=== PATIENT | female | born 1945 | race African-American/Black ===

== ENCOUNTER → 2016-12-24 | Outpatient (CLI) | payer MEDICARE, OTHER ==
[~2016-12-24] MED LIST: AMIO200T PO; AMLO2.5T PO; APIX2.5T PO; ATOR20TA86 PO; CARV12 PO; CINA30 PO; FOLI0.8T22 PO; LEVO150 PO; MONT10TA21 PO; OMEP20 PO; PERCT10 PO; VALS160T2 PO; VITAD5000 PO; ZOLP10 PO
== END | disposition home or self-care (01) ==
LOC: RADPV 11:04
PROVIDERS: ATTEND Internal Medicine Nephrology
DX: N18.6 End stage renal disease (principal); N28.1 Cyst of kidney, acquired; Z90.5 Acquired absence of kidney
CPT/HCPCS: 76770

== ENCOUNTER → 2017-05-06 | Outpatient (CLI) | payer MEDICARE, OTHER ==
[2017-05-06 15:55] LABS: BASOPHILS # (AUTO) 0.02 K/uL (0.00-0.20); BASOPHILS % (AUTO) 0.7 % (0.0-2.0); EOSINOPHILS # (AUTO) 0.17 K/uL (0.00-0.70); EOSINOPHILS % (AUTO) 5.24 % (1.0-6.0); HEMOGLOBIN 10.6 g/dL (12.0-16.0); LYMPHOCYTES # (AUTO) 0.8 K/uL (1.0-4.8); LYMPHOCYTES % (AUTO) 23.2 % (22.0-44.0); MEAN CORPUSCULAR HEMOGLOBIN 27.8 pg (26.0-34.0); MEAN CORPUSCULAR HGB CONC 30.4 G/dL (31.0-37.0); MEAN CORPUSCULAR VOLUME 91 fL (80-100); MONOCYTES # (AUTO) 0.6 K/uL (0.1-1.0); MONOCYTES % (AUTO) 19.4 % (2.0-9.0); NEUTROPHILS # (AUTO) 1.7 K/uL (1.8-7.7); NEUTROPHILS % (AUTO) 51.6 % (40.0-70.0); PLATELET COUNT (AUTO) 175 K/uL (150-450); RED BLOOD CELL COUNT(AUTO) 3.83 MIL/uL (4.00-5.20); RED CELL DISTRIBUTION WIDTH 17.8 % (11.5-14.5); WHITE BLOOD COUNT (AUTO) 3.3 K/uL (4.5-11.0)
[2017-05-06 16:05] LABS: ALBUMIN 3.8 g/dL (3.4-5.0); BILIRUBIN,TOTAL 0.6 mg/dL (0.1-1.0); CALCIUM, TOTAL 8.4 mg/dL (8.8-10.5); CHOL/HDL RATIO 2.6 (3.9-5.7); CREATININE 6.23 mg/dL (0.60-1.30); MAGNESIUM 1.9 mg/dL (1.80-2.40); POTASSIUM 4.2 mmol/L (3.5-5.1); TOTAL PROTEIN, SERUM 7.8 g/dL (6.4-8.2)
[2017-05-06 16:21] LABS: HEMOGLOBIN A1C 4.8 % (4.5-6.2)
[2017-05-06 16:22] LABS: RBC MORPHOLOGY COMMENT ABNORMAL RBC MORPH
[2017-05-06 17:21] LABS: THYROID STIMULATING HORMONE 5.51 uIU/mL (0.36-3.74)
== END | disposition home or self-care (01) ==
LOC: LABPV 12:52
PROVIDERS: ATTEND Internal Medicine Cardiovascular Disease
DX: I11.0 Hypertensive heart disease with heart failure (principal); I50.9 Heart failure, unspecified; E11.8 Type 2 diabetes mellitus with unspecified complications; E55.9 Vitamin D deficiency, unspecified
CPT/HCPCS: 82306; 83036; 83735; 84439; 84443

== ENCOUNTER → 2017-06-01 | Outpatient (CLI) | payer MEDICARE, OTHER | END | disposition home or self-care (01) | LOC: RADMN 13:34 | PROVIDERS: ATTEND Physical Medicine & Rehabilitation | DX: M41.86 Other forms of scoliosis, lumbar region (principal); M51.26 Other intervertebral disc displacement, lumbar region; K83.8 Other specified diseases of biliary tract | CPT/HCPCS: 72131 ==

== ENCOUNTER → 2017-07-15 | Outpatient (CLI) | payer MEDICARE, OTHER ==
[~2017-07-15] VITALS: Ht 167.6 cm; Wt 73.0 kg
[~2017-07-15] MED LIST changes: +AMIO200T44 PO; +CARV6 PO
[2017-07-15 14:18] VITALS: BP 159/99
== END | disposition home or self-care (01) ==
LOC: SRCNTR 13:52
PROVIDERS: ATTEND Internal Medicine Critical Care Medicine
DX: I13.2 Hypertensive heart and chronic kidney disease with heart failure and with stage 5 chronic kidney disease, or end stage renal disease (principal); N18.6 End stage renal disease; I50.9 Heart failure, unspecified; I48.91 Unspecified atrial fibrillation; E03.9 Hypothyroidism, unspecified; Z90.12 Acquired absence of left breast and nipple
CPT/HCPCS: G0463

== ENCOUNTER → 2017-07-29 | Outpatient (CLI) | payer MEDICARE, OTHER ==
[~2017-07-29] MED LIST changes: -AMIO200T PO; -AMLO2.5T PO; -CARV12 PO; -ZOLP10 PO
== END | disposition home or self-care (01) ==
LOC: RADPV 09:45
PROVIDERS: ATTEND Internal Medicine
DX: N28.1 Cyst of kidney, acquired (principal); Z90.49 Acquired absence of other specified parts of digestive tract; Z90.5 Acquired absence of kidney
CPT/HCPCS: 76700

== ENCOUNTER → 2017-08-12 | Outpatient (CLI) | payer MEDICARE, OTHER | END | disposition home or self-care (01) | LOC: RESP 11:51 | PROVIDERS: ATTEND Internal Medicine Critical Care Medicine | DX: J44.1 Chronic obstructive pulmonary disease with (acute) exacerbation (principal) | CPT/HCPCS: 94010; 94726; 94727; 94729 ==

== ENCOUNTER 2017-08-30 14:05 | Inpatient (IN) | payer MEDICARE, OTHER ==
[~2017-08-30] VITALS: Ht 167.6 cm; Wt 75.7 kg
[2017-08-30] MEDS ORDERED: PHOSLOC PO (14:27)
[2017-08-30] MEDS ORDERED: RYTH150 PO (14:27)
[2017-08-30 14:44] LABS: BASOPHILS % (AUTO) 0.2 % (0.0-2.0); EOSINOPHILS % (AUTO) 1.2 % (1.0-6.0); HEMATOCRIT 37.4 % (36-46); HEMOGLOBIN 11.8 g/dL (12.0-16.0); LYMPHOCYTES # (AUTO) 0.8 K/uL (1.0-4.8); LYMPHOCYTES % (AUTO) 14.2 % (22.0-44.0); MEAN CORPUSCULAR HEMOGLOBIN 27.8 pg (26.0-34.0); MEAN CORPUSCULAR HGB CONC 31.6 G/dL (31.0-37.0); MEAN CORPUSCULAR VOLUME 88 fL (80-100); MONOCYTES # (AUTO) 0.7 K/uL (0.1-1.0); MONOCYTES % (AUTO) 12.9 % (2.0-9.0); NEUTROPHILS # (AUTO) 3.9 K/uL (1.8-7.7); NEUTROPHILS % (AUTO) 71.5 % (40.0-70.0); PLATELET COUNT (AUTO) 164 K/uL (150-450); RED BLOOD CELL COUNT(AUTO) 4.25 MIL/uL (4.00-5.20); RED CELL DISTRIBUTION WIDTH 20.8 % (11.5-14.5); WHITE BLOOD COUNT (AUTO) 5.4 K/uL (4.5-11.0)
[2017-08-30 14:53] LABS: ANION GAP 13 mmol/L (8-16); CALCIUM, TOTAL 8.5 mg/dL (8.8-10.5); CARBON DIOXIDE 26 mmol/L (22-29); CHLORIDE 96 mmol/L (98-107); CREATININE 4.75 mg/dL (0.60-1.30); GLOMERULAR FILTR. RATE CALC 11 mL/min (>60); POTASSIUM 3.5 mmol/L (3.5-5.1); SODIUM SERUM 135 mmol/L (136-145); UREA NITROGEN, BLOOD 19 mg/dL (7-18)
[2017-08-30 14:56] LABS: INR 1.2 (0.9-1.1); PROTHROMBIN TIME 12.2 SEC (9.4-11.6)
[2017-08-30 14:59] LABS: ALANINE AMINOTRANSFERASE 15 U/L (12-78); ALBUMIN 3.7 g/dL (3.4-5.0); ASPARTATE AMINOTRANSFERASE 26 U/L (15-37); CREATINE KINASE, TOTAL 60 U/L (26-192); TOTAL PROTEIN, SERUM 7.4 g/dL (6.4-8.2)
[2017-08-30 15:44] LABS: B-TYPE NATRIURETIC PEPTIDE 1610 pg/mL (0-100)
[2017-08-30 16:17] LABS: GLUCOSE,POINT OF CARE 83 MG/DL (70-110)
[2017-08-30] MEDS ORDERED: ONDANSETRON HCL 4 MG/2 ML VIAL IVP ONE (16:45)
[2017-08-30] MEDS ORDERED: MORPHINE SULFATE 4 MG/ML SYRINGE IVP ONE (16:45)
[2017-08-30 17:44] LABS: RBC MORPHOLOGY COMMENT ABNORMAL RBC MORPH
[2017-08-30 18:01] VITALS: BP 116/68
[2017-08-30] MEDS ORDERED: PENTETATE DTPA TC99M/MCL ISOTOPE 1 EA INJ INJ ONE (19:20)
[2017-08-30] MEDS ORDERED: MAA ALBUMIN AGGREGATED TC99M/UD<10MCL ISOTOPE 1 EA INJ INJ ONE (19:35)
[2017-08-30 20:04] VITALS: BP 122/61
[2017-08-30] MEDS ORDERED: DIGOXIN 250 MCG/ML 2 ML AMP IVP ONE (20:30)
[2017-08-30] MEDS: ATORVASTATIN CALCIUM 20 MG TABLET PO SCH (20:43)
[2017-08-30] MEDS: CARVEDILOL 12.5 MG TABLET PO SCH (20:43)
[2017-08-30] MEDS: APIXABAN 2.5 MG TABLET PO SCH (21:19)
[2017-08-30] MEDS: HYDROmorphone 2 MG/ML SYRINGE IVP PRN (21:19)
[2017-08-31] VITALS (7 sets, daily range): BP systolic 110–123; BP diastolic 58–79
[2017-08-31 06:51] LABS: ALBUMIN 3.1 g/dL (3.4-5.0); BILIRUBIN,TOTAL 0.7 mg/dL (0.1-1.0); CALCIUM, TOTAL 8.2 mg/dL (8.8-10.5); CREATININE 6.44 mg/dL (0.60-1.30); MAGNESIUM 1.7 mg/dL (1.80-2.40); POTASSIUM 4.2 mmol/L (3.5-5.1); TOTAL PROTEIN, SERUM 6.6 g/dL (6.4-8.2)
[2017-08-31 07:01] LABS: EOSINOPHILS % (AUTO) 0.1 % (1.0-6.0); HEMATOCRIT 33.8 % (36-46); HEMOGLOBIN 10.7 g/dL (12.0-16.0); LYMPHOCYTES # (AUTO) 0.9 K/uL (1.0-4.8); LYMPHOCYTES % (AUTO) 13.8 % (22.0-44.0); MEAN CORPUSCULAR HEMOGLOBIN 27.9 pg (26.0-34.0); MEAN CORPUSCULAR HGB CONC 31.6 G/dL (31.0-37.0); MEAN CORPUSCULAR VOLUME 88 fL (80-100); MONOCYTES # (AUTO) 1.2 K/uL (0.1-1.0); MONOCYTES % (AUTO) 19.5 % (2.0-9.0); NEUTROPHILS # (AUTO) 4.2 K/uL (1.8-7.7); NEUTROPHILS % (AUTO) 66.6 % (40.0-70.0); PLATELET COUNT (AUTO) 164 K/uL (150-450); RED BLOOD CELL COUNT(AUTO) 3.83 MIL/uL (4.00-5.20); RED CELL DISTRIBUTION WIDTH 20.3 % (11.5-14.5); WHITE BLOOD COUNT (AUTO) 6.3 K/uL (4.5-11.0)
[2017-08-31 08:35] LABS: THYROID STIMULATING HORMONE 1.68 uIU/mL (0.36-3.74)
[2017-08-31 08:51] LABS: RBC MORPHOLOGY COMMENT ABNORMAL RBC MORPH
[2017-08-31] MEDS: VALSARTAN 40 MG TABLET PO SCH ×2 (09:00→21:00)
[2017-08-31] MEDS ORDERED: ATORVASTATIN CALCIUM 20 MG TABLET PO SCH (09:00)
[2017-08-31] MEDS ORDERED: VALSARTAN 160 MG TABLET PO SCH (09:00)
[2017-08-31] MEDS: OMEPRAZOLE 20 MG CAPSULE PO SCH ×2 (09:29→20:30)
[2017-08-31] MEDS: MONTELUKAST SODIUM 10 MG TABLET PO SCH (09:29)
[2017-08-31] MEDS: CARVEDILOL 12.5 MG TABLET PO SCH ×2 (09:30→20:30)
[2017-08-31] MEDS: APIXABAN 2.5 MG TABLET PO SCH ×2 (09:31→20:30)
[2017-08-31] MEDS: VITAMIN B COMP/VIT C/FOLIC ACID CAPSULE PO SCH (09:31)
[2017-08-31] MEDS: PROPAFENONE HCL 150 MG TABLET PO SCH ×2 (09:32→16:30)
[2017-08-31] MEDS: LEVOTHYROXINE SODIUM 150 MCG TABLET PO SCH (09:33)
[2017-08-31] MEDS: CALCIUM ACETATE 667 MG CAPSULE PO SCH ×2 (12:25→18:09)
[2017-08-31] MEDS: ATORVASTATIN CALCIUM 20 MG TABLET PO SCH (20:30)
[2017-08-31] MEDS: BUDESONIDE 0.5 MG/2 ML NEB SOLUTION NEB SCH (21:00)
[2017-09-01] MEDS: LIDOCAINE HCL 2% VISCOUS 15 ML SOLUTION UDCUP PO SCH ×4 (00:13→23:49)
[2017-09-01] MEDS: PROPAFENONE HCL 150 MG TABLET PO SCH ×4 (00:13→23:47)
[2017-09-01] MEDS: HYDROmorphone 2 MG/ML SYRINGE IVP PRN ×3 (03:14→18:25)
[2017-09-01 04:35] VITALS: BP 114/79
[2017-09-01 06:05] LABS: BASOPHILS % (AUTO) 0.1 % (0.0-2.0); EOSINOPHILS % (AUTO) 1.2 % (1.0-6.0); HEMATOCRIT 34.4 % (36-46); HEMOGLOBIN 10.9 g/dL (12.0-16.0); LYMPHOCYTES # (AUTO) 0.9 K/uL (1.0-4.8); MEAN CORPUSCULAR HEMOGLOBIN 27.8 pg (26.0-34.0); MEAN CORPUSCULAR HGB CONC 31.6 G/dL (31.0-37.0); MEAN CORPUSCULAR VOLUME 88 fL (80-100); MONOCYTES # (AUTO) 0.9 K/uL (0.1-1.0); MONOCYTES % (AUTO) 17.1 % (2.0-9.0); NEUTROPHILS # (AUTO) 3.5 K/uL (1.8-7.7); NEUTROPHILS % (AUTO) 64.6 % (40.0-70.0); PLATELET COUNT (AUTO) 180 K/uL (150-450); RED BLOOD CELL COUNT(AUTO) 3.91 MIL/uL (4.00-5.20); RED CELL DISTRIBUTION WIDTH 20.1 % (11.5-14.5); WHITE BLOOD COUNT (AUTO) 5.4 K/uL (4.5-11.0)
[2017-09-01] MEDS ORDERED: LEVOTHYROXINE SODIUM 150 MCG TABLET PO SCH (06:30)
[2017-09-01] MEDS: LEVOTHYROXINE SODIUM 150 MCG TABLET PO SCH (06:30)
[2017-09-01] MEDS: OxyCODONE HCL/ACETAMINOPHEN 10-325 MG TABLET PO PRN ×3 (06:30→23:24)
[2017-09-01 06:37] LABS: BILIRUBIN,TOTAL 0.5 mg/dL (0.1-1.0); CALCIUM, TOTAL 8.3 mg/dL (8.8-10.5); CREATININE 8.35 mg/dL (0.60-1.30); MAGNESIUM 1.9 mg/dL (1.80-2.40); POTASSIUM 4.6 mmol/L (3.5-5.1); TOTAL PROTEIN, SERUM 6.7 g/dL (6.4-8.2)
[2017-09-01 06:45] LABS: RBC MORPHOLOGY COMMENT ABNORMAL RBC MORPH
[2017-09-01 07:13] VITALS: BP 120/72
[2017-09-01] MEDS: CARVEDILOL 12.5 MG TABLET PO SCH ×2 (09:00→21:36)
[2017-09-01] MEDS: VALSARTAN 40 MG TABLET PO SCH ×3 (09:00→21:36)
[2017-09-01] MEDS: VITAMIN B COMP/VIT C/FOLIC ACID CAPSULE PO SCH (09:02)
[2017-09-01] MEDS: CINACALCET HCL 30 MG TABLET PO SCH (09:02)
[2017-09-01] MEDS: MONTELUKAST SODIUM 10 MG TABLET PO SCH (09:02)
[2017-09-01] MEDS: OMEPRAZOLE 20 MG CAPSULE PO SCH ×2 (09:02→21:36)
[2017-09-01] MEDS: CALCIUM ACETATE 667 MG CAPSULE PO SCH ×3 (09:02→18:10)
[2017-09-01] MEDS ORDERED: SODIUM CHLORIDE 0.9% 1,000 ML IV ONE (11:20)
[2017-09-01] MEDS: EPOETIN ALFA 10,000 UNITS/ML 2 ML VIAL SQ SCH (11:25)
[2017-09-01] MEDS ORDERED: LIDOCAINE HCL/PF 2% 5 ML VIAL INJ ONE (12:00)
[2017-09-01] MEDS ORDERED: DiphenhydrAMINE HCL 50 MG/ML VIAL IVP ONE (12:00)
[2017-09-01 12:07] VITALS: BP 119/69
[2017-09-01] MEDS: APIXABAN 5 MG TABLET PO SCH ×2 (12:52→21:36)
[2017-09-01] MEDS ORDERED: ALBUMIN HUMAN 25%-12.5GM/50ML IV BOTTLE IV PRN (15:30)
[2017-09-01] MEDS ORDERED: LIDOCAINE HCL/PF 1% 2 ML VIAL ID PRN (15:30)
[2017-09-01] MEDS ORDERED: DiphenhydrAMINE HCL 50 MG/ML VIAL IVP PRN (15:30)
[2017-09-01] MEDS ORDERED: MANNITOL 25%-12.5 GM/50 ML VIAL IVP PRN (15:30)
[2017-09-01 15:32] VITALS: BP 150/97
[2017-09-01 19:47] VITALS: BP 103/68
[2017-09-01] MEDS: BUDESONIDE 0.5 MG/2 ML NEB SOLUTION NEB SCH (21:00)
[2017-09-01] MEDS: ATORVASTATIN CALCIUM 20 MG TABLET PO SCH (21:36)
[2017-09-01 23:46] VITALS: BP 106/66
[2017-09-02 05:10] VITALS: BP 121/77
[2017-09-02] MEDS: LEVOTHYROXINE SODIUM 150 MCG TABLET PO SCH (06:30)
[2017-09-02 07:15] VITALS: BP 105/63
[2017-09-02 07:35] LABS: BASOPHILS % (AUTO) 0.1 % (0.0-2.0); EOSINOPHILS # (AUTO) 0.01 K/uL (0.00-0.70); EOSINOPHILS % (AUTO) 0.19 % (1.0-6.0); HEMOGLOBIN 11.6 g/dL (12.0-16.0); LYMPHOCYTES # (AUTO) 0.9 K/uL (1.0-4.8); MEAN CORPUSCULAR HEMOGLOBIN 27.2 pg (26.0-34.0); MEAN CORPUSCULAR HGB CONC 30.5 G/dL (31.0-37.0); MEAN CORPUSCULAR VOLUME 89 fL (80-100); MONOCYTES % (AUTO) 17.6 % (2.0-9.0); NEUTROPHILS # (AUTO) 3.5 K/uL (1.8-7.7); NEUTROPHILS % (AUTO) 65.2 % (40.0-70.0); PLATELET COUNT (AUTO) 179 K/uL (150-450); RED BLOOD CELL COUNT(AUTO) 4.26 MIL/uL (4.00-5.20); RED CELL DISTRIBUTION WIDTH 20.6 % (11.5-14.5); WHITE BLOOD COUNT (AUTO) 5.4 K/uL (4.5-11.0)
[2017-09-02] MEDS ORDERED: SODIUM CHLORIDE 0.9% 0 ML IV ONE (07:35)
[2017-09-02 07:52] LABS: BILIRUBIN,TOTAL 0.9 mg/dL (0.1-1.0); CALCIUM, TOTAL 8.2 mg/dL (8.8-10.5); CREATININE 5.75 mg/dL (0.60-1.30); MAGNESIUM 1.8 mg/dL (1.80-2.40); POTASSIUM 4.6 mmol/L (3.5-5.1); TOTAL PROTEIN, SERUM 7.1 g/dL (6.4-8.2)
[2017-09-02] MEDS: LIDOCAINE HCL 2% VISCOUS 15 ML SOLUTION UDCUP PO SCH ×2 (08:00→16:00)
[2017-09-02] MEDS ORDERED: SODIUM CHLORIDE 0.9% 1,000 ML IV ONE (08:00)
[2017-09-02] MEDS: CALCIUM ACETATE 667 MG CAPSULE PO SCH ×3 (08:00→18:00)
[2017-09-02 08:27] LABS: RBC MORPHOLOGY COMMENT ABNORMAL RBC MORPH
[2017-09-02] MEDS: MONTELUKAST SODIUM 10 MG TABLET PO SCH (09:00)
[2017-09-02] MEDS: CARVEDILOL 12.5 MG TABLET PO SCH (10:26)
[2017-09-02] MEDS: OMEPRAZOLE 20 MG CAPSULE PO SCH ×2 (10:26→21:08)
[2017-09-02] MEDS: VALSARTAN 40 MG TABLET PO SCH ×2 (10:26→21:00)
[2017-09-02] MEDS: VITAMIN B COMP/VIT C/FOLIC ACID CAPSULE PO SCH (10:26)
[2017-09-02] MEDS: CINACALCET HCL 30 MG TABLET PO SCH (10:26)
[2017-09-02] MEDS: APIXABAN 5 MG TABLET PO SCH (10:30)
[2017-09-02] MEDS: BUDESONIDE 0.5 MG/2 ML NEB SOLUTION NEB SCH ×2 (10:35→20:09)
[2017-09-02 11:35] VITALS: BP 118/75
[2017-09-02] MEDS ORDERED: LIDOCAINE HCL/PF 2% 5 ML VIAL INJ ONE (12:00)
[2017-09-02] MEDS ORDERED: PROPOFOL 1% 20 ML VIAL IVP ONE (12:00)
[2017-09-02] MEDS ORDERED: METOCLOPRAMIDE HCL 5 MG/ML 2 ML VIAL IVP ONE (12:00)
[2017-09-02] MEDS ORDERED: ONDANSETRON HCL 4 MG/2 ML VIAL IVP ONE (12:00)
[2017-09-02] MEDS: OxyCODONE HCL/ACETAMINOPHEN 10-325 MG TABLET PO PRN (15:25)
[2017-09-02 16:17] VITALS: BP 110/73
[2017-09-02] MEDS ORDERED: LACTULOSE 20 GM/30 ML SOLUTION UDCUP PO PRN (16:30)
[2017-09-02 20:39] VITALS: BP 97/56
[2017-09-02] MEDS: ATORVASTATIN CALCIUM 20 MG TABLET PO SCH (21:08)
[2017-09-03] VITALS (8 sets, daily range): BP systolic 98–124; BP diastolic 55–66
[2017-09-03] MEDS: CARVEDILOL 12.5 MG TABLET PO SCH ×3 (00:27→20:22)
[2017-09-03] MEDS: APIXABAN 5 MG TABLET PO SCH ×3 (00:27→20:23)
[2017-09-03] MEDS: DICLOFENAC SODIUM 1% 100 GM GEL [2GM] TP PRN ×2 (00:47→18:43)
[2017-09-03] MEDS: OxyCODONE HCL/ACETAMINOPHEN 10-325 MG TABLET PO PRN ×2 (02:20→17:54)
[2017-09-03] MEDS: LEVOTHYROXINE SODIUM 150 MCG TABLET PO SCH (06:06)
[2017-09-03 06:27] LABS: BASOPHILS % (AUTO) 0.3 % (0.0-2.0); EOSINOPHILS % (AUTO) 1.1 % (1.0-6.0); HEMATOCRIT 34.6 % (36-46); LYMPHOCYTES # (AUTO) 0.8 K/uL (1.0-4.8); MEAN CORPUSCULAR HEMOGLOBIN 27.8 pg (26.0-34.0); MEAN CORPUSCULAR HGB CONC 31.7 G/dL (31.0-37.0); MEAN CORPUSCULAR VOLUME 88 fL (80-100); MONOCYTES # (AUTO) 0.7 K/uL (0.1-1.0); MONOCYTES % (AUTO) 13.1 % (2.0-9.0); NEUTROPHILS # (AUTO) 3.6 K/uL (1.8-7.7); NEUTROPHILS % (AUTO) 70.5 % (40.0-70.0); PLATELET COUNT (AUTO) 222 K/uL (150-450); RED BLOOD CELL COUNT(AUTO) 3.94 MIL/uL (4.00-5.20); RED CELL DISTRIBUTION WIDTH 20.1 % (11.5-14.5); WHITE BLOOD COUNT (AUTO) 5.1 K/uL (4.5-11.0)
[2017-09-03 07:17] LABS: RBC MORPHOLOGY COMMENT ABNORMAL RBC MORPH
[2017-09-03 07:55] LABS: CALCIUM, TOTAL 7.9 mg/dL (8.8-10.5); CREATININE 7.55 mg/dL (0.60-1.30); POTASSIUM 4.5 mmol/L (3.5-5.1)
[2017-09-03 08:00] LABS: ALBUMIN 2.7 g/dL (3.4-5.0); BILIRUBIN,TOTAL 0.7 mg/dL (0.1-1.0); MAGNESIUM 1.8 mg/dL (1.80-2.40); TOTAL PROTEIN, SERUM 6.7 g/dL (6.4-8.2)
[2017-09-03] MEDS: CALCIUM ACETATE 667 MG CAPSULE PO SCH ×3 (08:00→18:00)
[2017-09-03] MEDS: LIDOCAINE HCL 2% VISCOUS 15 ML SOLUTION UDCUP PO SCH ×3 (08:00→16:00)
[2017-09-03] MEDS: CINACALCET HCL 30 MG TABLET PO SCH (08:00)
[2017-09-03] MEDS ORDERED: DiphenhydrAMINE HCL 25 MG CAPSULE PO ONE (08:15)
[2017-09-03] MEDS ORDERED: MethylPREDNISolone SOD SUCC 125 MG/2 ML VIAL IVP ONE (08:15)
[2017-09-03] MEDS ORDERED: PredniSONE 20 MG TABLET PO ONE (08:15)
[2017-09-03] MEDS ORDERED: IOVERSOL 350 MG/ML 150 ML VIAL ONE (08:18)
[2017-09-03] MEDS ORDERED: SODIUM CHLORIDE 0.9% 100 ML ONE (08:18)
[2017-09-03] MEDS ORDERED: METOPROLOL TARTRATE 25 MG TABLET PO ONE (08:30)
[2017-09-03] MEDS ORDERED: DIGOXIN 250 MCG/ML 2 ML AMP IVP ONE (08:30)
[2017-09-03] MEDS: BUDESONIDE 0.5 MG/2 ML NEB SOLUTION NEB SCH ×2 (08:31→21:34)
[2017-09-03] MEDS: VITAMIN B COMP/VIT C/FOLIC ACID CAPSULE PO SCH (09:00)
[2017-09-03] MEDS: OMEPRAZOLE 20 MG CAPSULE PO SCH ×2 (09:00→20:23)
[2017-09-03] MEDS: VALSARTAN 40 MG TABLET PO SCH ×2 (09:00→20:22)
[2017-09-03] MEDS ORDERED: CHOLECALCIFEROL (VIT D3) 5,000 UNITS CAPSULE PO SCH (09:00)
[2017-09-03] MEDS: EPOETIN ALFA 10,000 UNITS/ML 2 ML VIAL SQ SCH (09:00)
[2017-09-03] MEDS: MONTELUKAST SODIUM 10 MG TABLET PO SCH (09:00)
[2017-09-03] MEDS ORDERED: METOPROLOL TARTRATE 5 MG/5 ML VIAL IVP ONE ×2 (11:00→12:45)
[2017-09-03] MEDS ORDERED: DiphenhydrAMINE HCL 50 MG/ML VIAL IVP PRN (16:45)
[2017-09-03] MEDS ORDERED: LIDOCAINE HCL/PF 1% 2 ML VIAL ID PRN (16:45)
[2017-09-03] MEDS ORDERED: MANNITOL 25%-12.5 GM/50 ML VIAL IVP PRN (16:45)
[2017-09-03] MEDS: ATORVASTATIN CALCIUM 20 MG TABLET PO SCH (20:23)
[2017-09-04 04:22] VITALS: BP 113/72
[2017-09-04] MEDS: LEVOTHYROXINE SODIUM 150 MCG TABLET PO SCH (06:07)
[2017-09-04 06:43] LABS: ALBUMIN 2.9 g/dL (3.4-5.0); BILIRUBIN,TOTAL 0.6 mg/dL (0.1-1.0); CALCIUM, TOTAL 8.4 mg/dL (8.8-10.5); CREATININE 4.86 mg/dL (0.60-1.30); MAGNESIUM 1.6 mg/dL (1.80-2.40); POTASSIUM 5.2 mmol/L (3.5-5.1); TOTAL PROTEIN, SERUM 7.2 g/dL (6.4-8.2)
[2017-09-04 07:22] LABS: BASOPHILS % (AUTO) 0.1 % (0.0-2.0); EOSINOPHILS % (AUTO) 0 % (1.0-6.0); HEMATOCRIT 38.2 % (36-46); LYMPHOCYTES # (AUTO) 0.6 K/uL (1.0-4.8); LYMPHOCYTES % (AUTO) 18.5 % (22.0-44.0); MEAN CORPUSCULAR HEMOGLOBIN 27.3 pg (26.0-34.0); MEAN CORPUSCULAR HGB CONC 31.4 G/dL (31.0-37.0); MEAN CORPUSCULAR VOLUME 87 fL (80-100); MONOCYTES # (AUTO) 0.2 K/uL (0.1-1.0); MONOCYTES % (AUTO) 7.9 % (2.0-9.0); NEUTROPHILS # (AUTO) 2.2 K/uL (1.8-7.7); NEUTROPHILS % (AUTO) 73.5 % (40.0-70.0); PLATELET COUNT (AUTO) 244 K/uL (150-450); RED BLOOD CELL COUNT(AUTO) 4.39 MIL/uL (4.00-5.20); RED CELL DISTRIBUTION WIDTH 20.4 % (11.5-14.5)
[2017-09-04 07:32] VITALS: BP 123/76
[2017-09-04] MEDS: BUDESONIDE 0.5 MG/2 ML NEB SOLUTION NEB SCH (07:55)
[2017-09-04] MEDS: LIDOCAINE HCL 2% VISCOUS 15 ML SOLUTION UDCUP PO SCH ×2 (08:00)
[2017-09-04] MEDS: VITAMIN B COMP/VIT C/FOLIC ACID CAPSULE PO SCH (08:33)
[2017-09-04] MEDS: MONTELUKAST SODIUM 10 MG TABLET PO SCH (08:33)
[2017-09-04] MEDS: OMEPRAZOLE 20 MG CAPSULE PO SCH (08:33)
[2017-09-04] MEDS: CARVEDILOL 12.5 MG TABLET PO SCH (08:33)
[2017-09-04] MEDS: CINACALCET HCL 30 MG TABLET PO SCH (08:35)
[2017-09-04] MEDS: VALSARTAN 40 MG TABLET PO SCH (08:36)
[2017-09-04] MEDS: CALCIUM ACETATE 667 MG CAPSULE PO SCH ×2 (08:36→12:14)
[2017-09-04] MEDS: APIXABAN 5 MG TABLET PO SCH (08:37)
[2017-09-04 08:49] LABS: RBC MORPHOLOGY COMMENT ABNORMAL RBC MORPH
[2017-09-04] MEDS ORDERED: APIX5TAB PO ×2 (10:53→12:49)
[2017-09-04] MEDS ORDERED: VALS40TA4 PO ×2 (10:53→12:49)
[2017-09-04 11:10] VITALS: BP 136/75
[2017-09-04] MEDS ORDERED: LIDOCAINE HCL/PF 1% 2 ML VIAL IM ONE (15:34)
[2017-10-22] MEDS ORDERED: PRED20 PO (14:30)
== END 2017-09-04 15:35 | disposition home or self-care (01) | DRG 280 ==
LOC: EMS 14:07 → 5S 17:15
PROVIDERS: ADMIT Hospitalist; ATTEND Hospitalist
PROC: 5A1D70Z Performance of Urinary Filtration, Intermittent, Less than 6 Hours Per Day (ICD-10-PCS; 2017-09-01)
PROC: 5A1D70Z Performance of Urinary Filtration, Intermittent, Less than 6 Hours Per Day (ICD-10-PCS; 2017-09-01)
PROC: 0DJ08ZZ Inspection of Upper Intestinal Tract, Via Natural or Artificial Opening Endoscopic (ICD-10-PCS; principal; 2017-09-02 09:00)
DX: I21.4 Non-ST elevation (NSTEMI) myocardial infarction (principal); N18.6 End stage renal disease; I42.9 Cardiomyopathy, unspecified; I13.2 Hypertensive heart and chronic kidney disease with heart failure and with stage 5 chronic kidney disease, or end stage renal disease; I50.41 Acute combined systolic (congestive) and diastolic (congestive) heart failure; J44.9 Chronic obstructive pulmonary disease, unspecified; I48.0 Paroxysmal atrial fibrillation; N25.0 Renal osteodystrophy; D63.1 Anemia in chronic kidney disease; E78.5 Hyperlipidemia, unspecified; K57.90 Diverticulosis of intestine, part unspecified, without perforation or abscess without bleeding; E03.9 Hypothyroidism, unspecified; H54.3 Unqualified visual loss, both eyes; I25.119 Atherosclerotic heart disease of native coronary artery with unspecified angina pectoris; K21.9 Gastro-esophageal reflux disease without esophagitis; K44.9 Diaphragmatic hernia without obstruction or gangrene; Z96.649 Presence of unspecified artificial hip joint; Z79.01 Long term (current) use of anticoagulants; Z82.49 Family history of ischemic heart disease and other diseases of the circulatory system; Z85.3 Personal history of malignant neoplasm of breast; Z99.2 Dependence on renal dialysis; Z90.12 Acquired absence of left breast and nipple; Z91.041 Radiographic dye allergy status; Z95.810 Presence of automatic (implantable) cardiac defibrillator; Z86.73 Personal history of transient ischemic attack (TIA), and cerebral infarction without residual deficits
CPT/HCPCS: 70450; 71250; 78582; 82962; 83735; 84443; 87081; 87340; 90935; 93005; 93306; 93880; 94640; 96374; 96375; 99285; A9539; A9540; J0885; J1160; J1170; J1200; J2270; J2405; J2704; J2765; J2930; J3490; J7030; J7050

== ENCOUNTER 2017-09-08 14:20 | Inpatient (IN) | payer MEDICARE, OTHER ==
[~2017-09-08] VITALS: Ht 167.6 cm; Wt 69.0 kg
[~2017-09-08 14:20] MED LIST changes: -AMIO200T44 PO; -APIX2.5T PO; +APIX5TAB PO; +PHOSLOC PO; +RYTH150 PO; -VALS160T2 PO; +VALS40TA4 PO
[2017-09-08] MEDS ORDERED: SODIUM CHLORIDE 0.9% 1,000 ML IV ONE (15:00)
[2017-09-08] MEDS ORDERED: ONDANSETRON HCL 4 MG/2 ML VIAL IVP ONE ×2 (15:00→16:30)
[2017-09-08 15:32] LABS: EOSINOPHILS % (AUTO) 1.4 % (1.0-6.0); HEMATOCRIT 40.9 % (36-46); HEMOGLOBIN 12.9 g/dL (12.0-16.0); LYMPHOCYTES # (AUTO) 0.6 K/uL (1.0-4.8); LYMPHOCYTES % (AUTO) 13.4 % (22.0-44.0); MEAN CORPUSCULAR HEMOGLOBIN 27.2 pg (26.0-34.0); MEAN CORPUSCULAR HGB CONC 31.6 G/dL (31.0-37.0); MEAN CORPUSCULAR VOLUME 86 fL (80-100); MONOCYTES # (AUTO) 0.5 K/uL (0.1-1.0); NEUTROPHILS # (AUTO) 3.1 K/uL (1.8-7.7); NEUTROPHILS % (AUTO) 73.2 % (40.0-70.0); PLATELET COUNT (AUTO) 236 K/uL (150-450); RED BLOOD CELL COUNT(AUTO) 4.75 MIL/uL (4.00-5.20); RED CELL DISTRIBUTION WIDTH 20.2 % (11.5-14.5); WHITE BLOOD COUNT (AUTO) 4.2 K/uL (4.5-11.0)
[2017-09-08 15:39] LABS: ANION GAP 7 mmol/L (8-16); CALCIUM, TOTAL 8.8 mg/dL (8.8-10.5); CARBON DIOXIDE 32 mmol/L (22-29); CHLORIDE 98 mmol/L (98-107); CREATININE 4.04 mg/dL (0.60-1.30); GLOMERULAR FILTR. RATE CALC 13 mL/min (>60); POTASSIUM 3.9 mmol/L (3.5-5.1); SODIUM SERUM 137 mmol/L (136-145); UREA NITROGEN, BLOOD 20 mg/dL (7-18)
[2017-09-08 15:46] LABS: ALANINE AMINOTRANSFERASE 26 U/L (12-78); ALBUMIN 3.6 g/dL (3.4-5.0); ASPARTATE AMINOTRANSFERASE 19 U/L (15-37); BILIRUBIN,TOTAL 0.7 mg/dL (0.1-1.0); CREATINE KINASE, TOTAL 38 U/L (26-192); TOTAL PROTEIN, SERUM 7.8 g/dL (6.4-8.2)
[2017-09-08 15:56] LABS: INR 1.2 (0.9-1.1); PROTHROMBIN TIME 12.6 SEC (9.4-11.6)
[2017-09-08 16:11] LABS: B-TYPE NATRIURETIC PEPTIDE 3350 pg/mL (0-100)
[2017-09-08 16:14] LABS: RBC MORPHOLOGY COMMENT ABNORMAL RBC MORPH
[2017-09-08] MEDS ORDERED: MORPHINE SULFATE 4 MG/ML SYRINGE IVP ONE (16:30)
[2017-09-08 18:14] LABS: THYROID STIMULATING HORMONE 5.51 uIU/mL (0.36-3.74)
[2017-09-08 20:09] VITALS: BP 113/62
[2017-09-08] MEDS ORDERED: ALBUTEROL SULFATE 2.5 MG/0.5 ML NEB SOLUTION NEB PRN (21:30)
[2017-09-08] MEDS ORDERED: ACETAMINOPHEN 325 MG TABLET PO PRN (21:30)
[2017-09-08] MEDS ORDERED: BISACODYL 10 MG RECTAL RECTAL SUPPOSITORY PR PRN (21:30)
[2017-09-08] MEDS ORDERED: OxyCODONE HCL/ACETAMINOPHEN 5-325 MG TABLET PO PRN (21:30)
[2017-09-08 23:35] VITALS: BP 116/74
[2017-09-09 05:22] VITALS: BP 130/72
[2017-09-09 07:05] LABS: BASOPHILS % (AUTO) 0.3 % (0.0-2.0); EOSINOPHILS % (AUTO) 3.2 % (1.0-6.0); HEMATOCRIT 36.7 % (36-46); HEMOGLOBIN 11.6 g/dL (12.0-16.0); LYMPHOCYTES # (AUTO) 0.8 K/uL (1.0-4.8); LYMPHOCYTES % (AUTO) 21.5 % (22.0-44.0); MEAN CORPUSCULAR HEMOGLOBIN 27.6 pg (26.0-34.0); MEAN CORPUSCULAR HGB CONC 31.6 G/dL (31.0-37.0); MEAN CORPUSCULAR VOLUME 88 fL (80-100); MONOCYTES # (AUTO) 0.8 K/uL (0.1-1.0); MONOCYTES % (AUTO) 20.4 % (2.0-9.0); NEUTROPHILS # (AUTO) 2.1 K/uL (1.8-7.7); NEUTROPHILS % (AUTO) 54.6 % (40.0-70.0); PLATELET COUNT (AUTO) 224 K/uL (150-450); RED CELL DISTRIBUTION WIDTH 19.7 % (11.5-14.5); WHITE BLOOD COUNT (AUTO) 3.8 K/uL (4.5-11.0)
[2017-09-09 07:29] LABS: CALCIUM, TOTAL 8.4 mg/dL (8.8-10.5); CREATININE 5.52 mg/dL (0.60-1.30); POTASSIUM 4.4 mmol/L (3.5-5.1)
[2017-09-09 07:50] VITALS: BP 134/74
[2017-09-09] MEDS ORDERED: PANTOPRAZOLE SODIUM 40 MG DR TABLET PO SCH (09:00)
[2017-09-09] MEDS ORDERED: VITAMIN B COMP/VIT C/FOLIC ACID CAPSULE PO SCH (09:00)
[2017-09-09] MEDS ORDERED: APIXABAN 2.5 MG TABLET PO SCH (09:00)
[2017-09-09] MEDS ORDERED: CARVEDILOL 6.25 MG TABLET PO SCH (09:00)
[2017-09-09] MEDS ORDERED: DOCUSATE SODIUM 100 MG CAPSULE PO SCH (09:00)
[2017-09-09 10:19] LABS: RBC MORPHOLOGY COMMENT ABNORMAL RBC MORPH
[2017-09-09 12:04] VITALS: BP 121/76
[2017-09-09] MEDS ORDERED: ATORVASTATIN CALCIUM 20 MG TABLET PO SCH (21:00)
[2017-10-22] MEDS ORDERED: PRED20 PO (14:30)
== END 2017-09-09 14:15 | disposition home or self-care (01) | DRG 882 ==
LOC: EMS 14:29 → 5N 18:26
PROVIDERS: ADMIT Internal Medicine; ATTEND Internal Medicine
DX: F45.9 Somatoform disorder, unspecified (principal); I13.2 Hypertensive heart and chronic kidney disease with heart failure and with stage 5 chronic kidney disease, or end stage renal disease; N18.6 End stage renal disease; I48.0 Paroxysmal atrial fibrillation; I07.1 Rheumatic tricuspid insufficiency; J44.9 Chronic obstructive pulmonary disease, unspecified; I50.20 Unspecified systolic (congestive) heart failure; R07.89 Other chest pain; I25.2 Old myocardial infarction; E03.9 Hypothyroidism, unspecified; I49.3 Ventricular premature depolarization; Z96.649 Presence of unspecified artificial hip joint; Z79.82 Long term (current) use of aspirin; Z82.49 Family history of ischemic heart disease and other diseases of the circulatory system; Z83.3 Family history of diabetes mellitus; Z85.3 Personal history of malignant neoplasm of breast; Z86.73 Personal history of transient ischemic attack (TIA), and cerebral infarction without residual deficits; Z99.2 Dependence on renal dialysis; Z88.8 Allergy status to other drugs, medicaments and biological substances; Z91.041 Radiographic dye allergy status
CPT/HCPCS: 84443; 87081; 93005; 96374; 96375; 99291; J2270; J2405

== ENCOUNTER 2017-09-11 11:51 | Inpatient (IN) | payer MEDICARE, OTHER ==
[2017-09-11] VITALS (9 sets, daily range): BP systolic 98–135; BP diastolic 47–86
[~2017-09-11] VITALS: Ht 172.7 cm; Wt 74.0 kg
[~2017-09-11 11:51] MED LIST changes: -PERCT10 PO; -RYTH150 PO; -VITAD5000 PO
[2017-09-11] MEDS ORDERED: FOLI1TAB85 PO (12:21)
[2017-09-11] MEDS ORDERED: RYTH150 PO (12:21)
[2017-09-11] MEDS ORDERED: OXYC-31 PO (12:21)
[2017-09-11] MEDS ORDERED: PROP10TA73 PO (12:21)
[2017-09-11] MEDS ORDERED: BARIUM SULFATE 0.1% SUSPENSION 450 ML BOTTLE PO ONE (12:45)
[2017-09-11 12:47] LABS: HEMATOCRIT 37.2 % (36-46); HEMOGLOBIN 11.4 g/dL (12.0-16.0); MEAN CORPUSCULAR HEMOGLOBIN 27.1 pg (26.0-34.0); MEAN CORPUSCULAR HGB CONC 30.6 G/dL (31.0-37.0); MEAN CORPUSCULAR VOLUME 89 fL (80-100); PLATELET COUNT (AUTO) 192 K/uL (150-450); RED CELL DISTRIBUTION WIDTH 20.3 % (11.5-14.5); WHITE BLOOD COUNT (AUTO) 4.5 K/uL (4.5-11.0)
[2017-09-11 12:54] LABS: CALCIUM, TOTAL 8.4 mg/dL (8.8-10.5); CREATININE 5.97 mg/dL (0.60-1.30); POTASSIUM 4.3 mmol/L (3.5-5.1)
[2017-09-11 13:00] LABS: ALBUMIN 3.3 g/dL (3.4-5.0); BILIRUBIN,TOTAL 0.7 mg/dL (0.1-1.0); TOTAL PROTEIN, SERUM 7.1 g/dL (6.4-8.2)
[2017-09-11 13:03] LABS: INR 1.2 (0.9-1.1); PROTHROMBIN TIME 12.6 SEC (9.4-11.6)
[2017-09-11 13:14] LABS: BAND NEUTROPHILS % (MANUAL) 3 % (1-5); LYMPHOCYTES % (MANUAL) 37 % (22-44); TOTAL CELLS COUNTED 100
[2017-09-11 13:15] LABS: RBC MORPHOLOGY COMMENT ABNORMAL RBC MORPH
[2017-09-11] MEDS ORDERED: PANTOPRAZOLE SODIUM 80 MG in SODIUM CHLORIDE 0.9% 100 ML IV SCH (13:15)
[2017-09-11] MEDS ORDERED: PANTOPRAZOLE SODIUM 80 MG in SODIUM CHLORIDE 0.9% 50 ML IV ONE (13:15)
[2017-09-11] MEDS ORDERED: 0.9% SODIUM CHLORIDE 10 ML SYRINGE IVP PRN (13:45)
[2017-09-11] MEDS ORDERED: ONDANSETRON HCL 4 MG/2 ML VIAL IVP PRN (13:45)
[2017-09-11] MEDS ORDERED: ACETAMINOPHEN 325 MG TABLET PO PRN (13:45)
[2017-09-11 16:31] LABS: HEMATOCRIT 32.8 % (36-46); HEMOGLOBIN 10.3 g/dL (12.0-16.0)
[2017-09-11] MEDS ORDERED: CIPROFLOXACIN 400 MG/D5% WATER 200 ML IV ONE (16:45)
[2017-09-11] MEDS ORDERED: MetroNIDAZOLE 500 MG/NACL 100 ML IV ONE (16:45)
[2017-09-11] MEDS ORDERED: MetroNIDAZOLE 750 MG/NACL 150 ML IV ONE (16:45)
[2017-09-11] MEDS ORDERED: ONDANSETRON HCL 4 MG/2 ML VIAL IVP ONE (17:15)
[2017-09-11] MEDS ORDERED: MORPHINE SULFATE 4 MG/ML SYRINGE IVP ONE (17:15)
[2017-09-11] MEDS ORDERED: DOPamine HCL 400 MG/D5%-WATER 250 ML IV ONE (19:44)
[2017-09-11] MEDS ORDERED: SUCCINYLCHOLINE CHLORIDE 20 MG/ML 10 ML VIAL ONE (19:55)
[2017-09-11] MEDS ORDERED: RAPID SEQUENCE KIT [RSI] 1 EACH KIT ONE ×2 (19:55)
[2017-09-11] MEDS ORDERED: NOREPINEPHRINE 4 MG/D5%-WATER 250 ML IV ONE (20:00)
[2017-09-11] MEDS ORDERED: PHENYLEPHRINE 200 MG/D5%-WATER 250 ML IV ONE (20:03)
[2017-09-11] MEDS ORDERED: VASOPRESSIN 100 UNITS in DEXTROSE 5%-WATER 245 ML IV PRN ×2 (20:04→20:15)
[2017-09-11 20:38] LABS: BASOPHILS # (AUTO) 0.02 K/uL (0.00-0.20); BASOPHILS % (AUTO) 0.3 % (0.0-2.0); EOSINOPHILS # (AUTO) 0.16 K/uL (0.00-0.70); EOSINOPHILS % (AUTO) 1.79 % (1.0-6.0); HEMATOCRIT 28.8 % (36-46); HEMOGLOBIN 8.9 g/dL (12.0-16.0); MEAN CORPUSCULAR HEMOGLOBIN 27.4 pg (26.0-34.0); MEAN CORPUSCULAR HGB CONC 30.9 G/dL (31.0-37.0); MEAN CORPUSCULAR VOLUME 88 fL (80-100); MONOCYTES # (AUTO) 0.8 K/uL (0.1-1.0); MONOCYTES % (AUTO) 9.3 % (2.0-9.0); NEUTROPHILS # (AUTO) 6.8 K/uL (1.8-7.7); NEUTROPHILS % (AUTO) 77.6 % (40.0-70.0); PLATELET COUNT (AUTO) 175 K/uL (150-450); RED BLOOD CELL COUNT(AUTO) 3.25 MIL/uL (4.00-5.20); RED CELL DISTRIBUTION WIDTH 19.9 % (11.5-14.5); WHITE BLOOD COUNT (AUTO) 8.8 K/uL (4.5-11.0)
[2017-09-11 20:49] LABS: CALCIUM, TOTAL 7.6 mg/dL (8.8-10.5); CREATININE 6.28 mg/dL (0.60-1.30); POTASSIUM 3.9 mmol/L (3.5-5.1)
[2017-09-11 20:56] LABS: ALBUMIN 2.8 g/dL (3.4-5.0); BILIRUBIN,TOTAL 0.5 mg/dL (0.1-1.0); TOTAL PROTEIN, SERUM 5.6 g/dL (6.4-8.2)
[2017-09-11] MEDS ORDERED: DESMOPRESSIN ACETATE 20 MCG in SODIUM CHLORIDE 0.9% 50 ML IV ONE (21:45)
[2017-09-11] MEDS ORDERED: SODIUM CHLORIDE 0.9% 250 ML IV ONE (22:46)
[2017-09-12] VITALS (8 sets, daily range): BP systolic 114–138; BP diastolic 59–82
[2017-09-12] MEDS ORDERED: PANTOPRAZOLE SODIUM 80 MG in SODIUM CHLORIDE 0.9% 100 ML IV STA (03:14)
[2017-09-12] MEDS: OxyCODONE HCL/ACETAMINOPHEN 10-325 MG TABLET PO PRN ×2 (03:43→15:48)
[2017-09-12 03:51] LABS: BASOPHILS % (AUTO) 0.1 % (0.0-2.0); EOSINOPHILS % (AUTO) 0.7 % (1.0-6.0); HEMATOCRIT 36.3 % (36-46); HEMOGLOBIN 11.7 g/dL (12.0-16.0); LYMPHOCYTES # (AUTO) 0.7 K/uL (1.0-4.8); LYMPHOCYTES % (AUTO) 7.7 % (22.0-44.0); MEAN CORPUSCULAR HEMOGLOBIN 28.6 pg (26.0-34.0); MEAN CORPUSCULAR HGB CONC 32.2 G/dL (31.0-37.0); MEAN CORPUSCULAR VOLUME 89 fL (80-100); MONOCYTES # (AUTO) 0.6 K/uL (0.1-1.0); MONOCYTES % (AUTO) 6.6 % (2.0-9.0); NEUTROPHILS # (AUTO) 7.2 K/uL (1.8-7.7); NEUTROPHILS % (AUTO) 84.9 % (40.0-70.0); PLATELET COUNT (AUTO) 182 K/uL (150-450); RED BLOOD CELL COUNT(AUTO) 4.09 MIL/uL (4.00-5.20); RED CELL DISTRIBUTION WIDTH 18.6 % (11.5-14.5); WHITE BLOOD COUNT (AUTO) 8.5 K/uL (4.5-11.0)
[2017-09-12 03:57] LABS: CALCIUM, TOTAL 7.6 mg/dL (8.8-10.5); CREATININE 6.51 mg/dL (0.60-1.30); POTASSIUM 4.9 mmol/L (3.5-5.1)
[2017-09-12 04:00] LABS: INR 1.2 (0.9-1.1); PROTHROMBIN TIME 12.6 SEC (9.4-11.6)
[2017-09-12 04:02] LABS: BILIRUBIN,TOTAL 0.9 mg/dL (0.1-1.0); TOTAL PROTEIN, SERUM 6.2 g/dL (6.4-8.2)
[2017-09-12 04:08] LABS: RBC MORPHOLOGY COMMENT ABNORMAL RBC MORPH
[2017-09-12 07:52] LABS: GLUCOSE,POINT OF CARE 57 MG/DL (70-110)
[2017-09-12] MEDS: DEXTROSE 50%-WATER 25 GM/50 ML SYRINGE IVP PRN ×2 (08:04→18:27)
[2017-09-12 09:08] LABS: GLUCOSE,POINT OF CARE 128 MG/DL (70-110)
[2017-09-12 09:34] LABS: APPEARANCE,URINE TURBID (CLEAR); GLUCOSE, URINE (UA) NEGATIVE (NEGATIVE); KETONES,URINE >=80 mg/dL (NEGATIVE); LEUKOCYTE ESTERASE ,URINE LARGE (NEGATIVE); OCCULT BLOOD,URINE LARGE (NEGATIVE); PH,URINE 5.5 (5.0-8.0); PROTEIN,URINE SEE CONFIRM (NEGATIVE)
[2017-09-12 09:35] LABS: ADD UA MICROSCOPIC YES
[2017-09-12 09:42] LABS: SULFOSALICYLIC ACID,URINE 3+ (Negative)
[2017-09-12 09:44] LABS: RBC,URINE Full Field /HPF (0-2); SQUAMOUS EPITHELIAL CELL,UR Rare /LPF (None Seen)
[2017-09-12 09:45] LABS: WBC,URINE 51-100 /HPF (0-5)
[2017-09-12 09:55] LABS: HEMATOCRIT 30.1 % (36-46); HEMOGLOBIN 9.6 g/dL (12.0-16.0)
[2017-09-12] MEDS ORDERED: PHENYLEPHRINE 200 MG/D5%-WATER 250 ML IV PRN (11:33)
[2017-09-12] MEDS: PANTOPRAZOLE SODIUM 80 MG in SODIUM CHLORIDE 0.9% 100 ML IV SCH ×2 (13:06→16:42)
[2017-09-12 13:44] LABS: HEMATOCRIT 29.4 % (36-46); HEMOGLOBIN 9.3 g/dL (12.0-16.0)
[2017-09-12 16:03] LABS: HEMATOCRIT 29.5 % (36-46); HEMOGLOBIN 9.6 g/dL (12.0-16.0)
[2017-09-12] MEDS ORDERED: VANCOMYCIN HCL 1 GM/D5% WATER 200 ML IV PRN (18:00)
[2017-09-12 21:32] LABS: GLUCOSE,POINT OF CARE 66 MG/DL (70-110)
[2017-09-12 22:19] LABS: HEMATOCRIT 27.5 % (36-46); HEMOGLOBIN 8.8 g/dL (12.0-16.0)
[2017-09-13] VITALS (8 sets, daily range): BP systolic 96–138; BP diastolic 50–88
[2017-09-13] MEDS: DEXTROSE 50%-WATER 25 GM/50 ML SYRINGE IVP PRN ×6 (00:08→21:35)
[2017-09-13] MEDS: OxyCODONE HCL/ACETAMINOPHEN 10-325 MG TABLET PO PRN ×3 (00:24→21:35)
[2017-09-13] MEDS: PANTOPRAZOLE SODIUM 80 MG in SODIUM CHLORIDE 0.9% 100 ML IV SCH ×3 (01:04→23:51)
[2017-09-13 05:27] LABS: EOSINOPHILS # (AUTO) 0.08 K/uL (0.00-0.70); EOSINOPHILS % (AUTO) 1.09 % (1.0-6.0); HEMATOCRIT 25.1 % (36-46); LYMPHOCYTES # (AUTO) 0.7 K/uL (1.0-4.8); MEAN CORPUSCULAR HEMOGLOBIN 28.7 pg (26.0-34.0); MEAN CORPUSCULAR HGB CONC 31.8 G/dL (31.0-37.0); MEAN CORPUSCULAR VOLUME 90 fL (80-100); MONOCYTES # (AUTO) 0.8 K/uL (0.1-1.0); NEUTROPHILS # (AUTO) 5.4 K/uL (1.8-7.7); PLATELET COUNT (AUTO) 130 K/uL (150-450); RED BLOOD CELL COUNT(AUTO) 2.78 MIL/uL (4.00-5.20)
[2017-09-13 05:38] LABS: CALCIUM, TOTAL 7.5 mg/dL (8.8-10.5); CREATININE 8.31 mg/dL (0.60-1.30); MAGNESIUM 1.7 mg/dL (1.80-2.40); PHOSPHORUS 4.3 mg/dL (2.5-4.9); POTASSIUM 4.4 mmol/L (3.5-5.1)
[2017-09-13 06:36] LABS: RBC MORPHOLOGY COMMENT ABNORMAL RBC MORPH
[2017-09-13] MEDS ORDERED: SODIUM CHLORIDE 0.9% 500 ML IV ONE (08:06)
[2017-09-13 08:23] LABS: GLUCOSE COMMENT 1 Juice/Food/D50 Given; GLUCOSE,POINT OF CARE 77 MG/DL (70-110)
[2017-09-13 08:27] LABS: GLUCOSE,POINT OF CARE 77 MG/DL (70-110)
[2017-09-13] MEDS: EPOETIN ALFA 10,000 UNITS/ML VIAL SQ SCH (09:04)
[2017-09-13] MEDS: SOD FERRIC GLUC COMPLX/SUCROSE 125 MG in SODIUM CHLORIDE 0.9% 100 ML IV SCH (09:07)
[2017-09-13 11:27] LABS: BASOPHILS # (AUTO) 0.05 K/uL (0.00-0.20); BASOPHILS % (AUTO) 0.6 % (0.0-2.0); EOSINOPHILS # (AUTO) 0.07 K/uL (0.00-0.70); EOSINOPHILS % (AUTO) 0.93 % (1.0-6.0); HEMATOCRIT 27.5 % (36-46); HEMOGLOBIN 8.7 g/dL (12.0-16.0); LYMPHOCYTES % (AUTO) 13.2 % (22.0-44.0); MEAN CORPUSCULAR HEMOGLOBIN 28.4 pg (26.0-34.0); MEAN CORPUSCULAR HGB CONC 31.7 G/dL (31.0-37.0); MEAN CORPUSCULAR VOLUME 90 fL (80-100); NEUTROPHILS # (AUTO) 5.6 K/uL (1.8-7.7); NEUTROPHILS % (AUTO) 72.3 % (40.0-70.0); PLATELET COUNT (AUTO) 127 K/uL (150-450); RED BLOOD CELL COUNT(AUTO) 3.06 MIL/uL (4.00-5.20); RED CELL DISTRIBUTION WIDTH 18.7 % (11.5-14.5); WHITE BLOOD COUNT (AUTO) 7.7 K/uL (4.5-11.0)
[2017-09-13 11:44] LABS: RBC MORPHOLOGY COMMENT ABNORMAL RBC MORPH
[2017-09-13 16:23] LABS: HEMATOCRIT 24.2 % (36-46); HEMOGLOBIN 7.9 g/dL (12.0-16.0)
[2017-09-13] MEDS ORDERED: SODIUM CHLORIDE 0.9% 250 ML IV ONE (17:11)
[2017-09-13 17:48] LABS: GLUCOSE COMMENT 1 Juice/Food/D50 Given; GLUCOSE,POINT OF CARE 75 MG/DL (70-110)
[2017-09-13] MEDS ORDERED: VECURONIUM BROMIDE 10 MG/VIAL IV ONE (18:00)
[2017-09-13] MEDS ORDERED: ETOMIDATE 2 MG/ML 10 ML VIAL IV ONE (18:00)
[2017-09-13 22:23] LABS: HEMATOCRIT 27.3 % (36-46)
[2017-09-13 23:13] LABS: GLUCOSE,POINT OF CARE 74 MG/DL (70-110)
[2017-09-14] VITALS (8 sets, daily range): BP systolic 80–121; BP diastolic 47–69
[2017-09-14] MEDS: DEXTROSE 50%-WATER 25 GM/50 ML SYRINGE IVP PRN ×5 (01:15→21:43)
[2017-09-14 02:33] LABS: GLUCOSE,POINT OF CARE 73 MG/DL (70-110)
[2017-09-14 04:57] LABS: GLUCOSE,POINT OF CARE 67 MG/DL (70-110)
[2017-09-14 04:57] LABS: GLUCOSE COMMENT 1 Juice/Food/D50 Given; GLUCOSE,POINT OF CARE 71 MG/DL (70-110)
[2017-09-14] MEDS: OxyCODONE HCL/ACETAMINOPHEN 10-325 MG TABLET PO PRN ×2 (05:05→21:46)
[2017-09-14 05:37] LABS: GLUCOSE COMMENT 1 Juice/Food/D50 Given; GLUCOSE,POINT OF CARE 70 MG/DL (70-110)
[2017-09-14 06:17] LABS: BASOPHILS % (AUTO) 0.5 % (0.0-2.0); EOSINOPHILS % (AUTO) 2.3 % (1.0-6.0); HEMATOCRIT 24.9 % (36-46); HEMOGLOBIN 8.1 g/dL (12.0-16.0); LYMPHOCYTES # (AUTO) 0.7 K/uL (1.0-4.8); LYMPHOCYTES % (AUTO) 14.6 % (22.0-44.0); MEAN CORPUSCULAR HEMOGLOBIN 28.6 pg (26.0-34.0); MEAN CORPUSCULAR HGB CONC 32.4 G/dL (31.0-37.0); MEAN CORPUSCULAR VOLUME 88 fL (80-100); MONOCYTES # (AUTO) 0.6 K/uL (0.1-1.0); MONOCYTES % (AUTO) 13.1 % (2.0-9.0); NEUTROPHILS # (AUTO) 3.2 K/uL (1.8-7.7); NEUTROPHILS % (AUTO) 69.5 % (40.0-70.0); PLATELET COUNT (AUTO) 110 K/uL (150-450); RED BLOOD CELL COUNT(AUTO) 2.81 MIL/uL (4.00-5.20); RED CELL DISTRIBUTION WIDTH 19.9 % (11.5-14.5); WHITE BLOOD COUNT (AUTO) 4.6 K/uL (4.5-11.0)
[2017-09-14 06:45] LABS: ALBUMIN 2.3 g/dL (3.4-5.0); BILIRUBIN,TOTAL 0.6 mg/dL (0.1-1.0); CALCIUM, TOTAL 8.1 mg/dL (8.8-10.5); CREATININE 4.62 mg/dL (0.60-1.30); MAGNESIUM 1.4 mg/dL (1.80-2.40); TOTAL PROTEIN, SERUM 4.8 g/dL (6.4-8.2)
[2017-09-14] MEDS ORDERED: DEXTROSE 5%-0.45% SODIUM CHL 1,000 ML IV ONE (06:56)
[2017-09-14 07:25] LABS: RBC MORPHOLOGY COMMENT ABNORMAL RBC MORPH
[2017-09-14] MEDS: DEXTROSE 5%-0.45% SODIUM CHL 1,000 ML IV SCH (07:59)
[2017-09-14] MEDS ORDERED: PEG 3350/NA SULF,BICARB,CL/KCL 4000 ML SOLUTION PO ONE (08:00)
[2017-09-14] MEDS: PANTOPRAZOLE SODIUM 80 MG in SODIUM CHLORIDE 0.9% 100 ML IV SCH ×2 (08:50→18:30)
[2017-09-14] MEDS: SOD FERRIC GLUC COMPLX/SUCROSE 125 MG in SODIUM CHLORIDE 0.9% 100 ML IV SCH (08:50)
[2017-09-14 09:32] LABS: GLUCOSE,POINT OF CARE 76 MG/DL (70-110)
[2017-09-14] MEDS ORDERED: SODIUM CHLORIDE 0.9% 1,000 ML IV ONE (11:12)
[2017-09-14 11:23] LABS: HEMATOCRIT 26.7 % (36-46); HEMOGLOBIN 8.7 g/dL (12.0-16.0)
[2017-09-14 13:42] LABS: GLUCOSE COMMENT 1 Juice/Food/D50 Given; GLUCOSE,POINT OF CARE 60 MG/DL (70-110)
[2017-09-14 18:37] LABS: GLUCOSE,POINT OF CARE 60 MG/DL (70-110)
[2017-09-14 18:37] LABS: GLUCOSE COMMENT 1 Juice/Food/D50 Given; GLUCOSE,POINT OF CARE 62 MG/DL (70-110)
[2017-09-14 20:01] LABS: HEMATOCRIT 25.6 % (36-46); HEMOGLOBIN 8.2 g/dL (12.0-16.0)
[2017-09-15] MEDS ORDERED: PHENYLEPHRINE HCL 10 MG/ML VIAL IVP ONE (00:49)
[2017-09-15] MEDS ORDERED: PROPOFOL 1% 20 ML VIAL IVP ONE (00:49)
[2017-09-15] MEDS ORDERED: 0.9% SODIUM CHLORIDE 10 ML VIAL IVP ONE (00:49)
[2017-09-15 02:33] LABS: GLUCOSE,POINT OF CARE 161 MG/DL (70-110)
[2017-09-15 02:38] LABS: GLUCOSE,POINT OF CARE 110 MG/DL (70-110)
[2017-09-15 04:58] LABS: GLUCOSE,POINT OF CARE 66 MG/DL (70-110)
[2017-09-15 04:58] LABS: GLUCOSE,POINT OF CARE 79 MG/DL (70-110)
[2017-09-15] MEDS: PANTOPRAZOLE SODIUM 80 MG in SODIUM CHLORIDE 0.9% 100 ML IV SCH ×2 (05:23→14:36)
[2017-09-15 06:05] VITALS: BP 99/55
[2017-09-15 07:07] VITALS: BP 100/52
[2017-09-15 07:14] LABS: ALBUMIN 2.2 g/dL (3.4-5.0); BILIRUBIN,TOTAL 0.4 mg/dL (0.1-1.0); CALCIUM, TOTAL 7.5 mg/dL (8.8-10.5); CREATININE 5.84 mg/dL (0.60-1.30); MAGNESIUM 1.3 mg/dL (1.80-2.40); TOTAL PROTEIN, SERUM 4.5 g/dL (6.4-8.2)
[2017-09-15] MEDS: DEXTROSE 5%-0.45% SODIUM CHL 1,000 ML IV SCH (07:17)
[2017-09-15] MEDS ORDERED: SODIUM CHLORIDE 0.9% 2,000 ML IV ONE (08:26)
[2017-09-15] MEDS: SOD FERRIC GLUC COMPLX/SUCROSE 125 MG in SODIUM CHLORIDE 0.9% 100 ML IV SCH (08:47)
[2017-09-15 09:53] LABS: BASOPHILS # (AUTO) 0.02 K/uL (0.00-0.20); BASOPHILS % (AUTO) 0.5 % (0.0-2.0); EOSINOPHILS # (AUTO) 0.13 K/uL (0.00-0.70); EOSINOPHILS % (AUTO) 3.72 % (1.0-6.0); HEMATOCRIT 21.9 % (36-46); HEMOGLOBIN 7.1 g/dL (12.0-16.0); LYMPHOCYTES # (AUTO) 0.8 K/uL (1.0-4.8); LYMPHOCYTES % (AUTO) 22.7 % (22.0-44.0); MEAN CORPUSCULAR HEMOGLOBIN 28.6 pg (26.0-34.0); MEAN CORPUSCULAR HGB CONC 32.2 G/dL (31.0-37.0); MEAN CORPUSCULAR VOLUME 89 fL (80-100); MONOCYTES # (AUTO) 0.5 K/uL (0.1-1.0); MONOCYTES % (AUTO) 14.4 % (2.0-9.0); NEUTROPHILS % (AUTO) 58.7 % (40.0-70.0); PLATELET COUNT (AUTO) 118 K/uL (150-450); RED BLOOD CELL COUNT(AUTO) 2.46 MIL/uL (4.00-5.20); RED CELL DISTRIBUTION WIDTH 19.9 % (11.5-14.5); WHITE BLOOD COUNT (AUTO) 3.5 K/uL (4.5-11.0)
[2017-09-15 09:54] LABS: RBC MORPHOLOGY COMMENT ABNORMAL RBC MORPH
[2017-09-15] MEDS ORDERED: SODIUM CHLORIDE 0.9% 250 ML IV ONE (10:52)
[2017-09-15 11:23] VITALS: BP 129/66
[2017-09-15] MEDS: DEXTROSE 50%-WATER 25 GM/50 ML SYRINGE IVP PRN ×2 (13:10→13:15)
[2017-09-15] MEDS: EPOETIN ALFA 10,000 UNITS/ML VIAL SQ SCH (13:21)
[2017-09-15] MEDS: OxyCODONE HCL/ACETAMINOPHEN 10-325 MG TABLET PO PRN ×2 (13:21→20:02)
[2017-09-15 13:37] LABS: GLUCOSE COMMENT 1 Juice/Food/D50 Given; GLUCOSE COMMENT 2 Received Meds; GLUCOSE,POINT OF CARE 64 MG/DL (70-110)
[2017-09-15] MEDS: AMPICILLIN TRIHYDRATE 500 MG CAPSULE PO SCH ×3 (14:36→20:02)
[2017-09-15 14:42] LABS: GLUCOSE,POINT OF CARE 98 MG/DL (70-110)
[2017-09-15 15:21] VITALS: BP 104/72
[2017-09-15] MEDS ORDERED: MAG HYDROX/AL HYDROX/SIMETH 30 ML SUSP UDCUP PO PRN (18:00)
[2017-09-15 19:55] VITALS: BP 156/84
[2017-09-15 20:08] LABS: GLUCOSE COMMENT 1 Juice/Food/D50 Given; GLUCOSE COMMENT 2 Received Meds; GLUCOSE,POINT OF CARE 64 MG/DL (70-110)
[2017-09-15 20:12] LABS: GLUCOSE,POINT OF CARE 75 MG/DL (70-110)
[2017-09-15] MEDS ORDERED: MORPHINE SULFATE 2 MG/ML SYRINGE IVP ONE (20:15)
[2017-09-15 23:42] VITALS: BP 122/70
[2017-09-16] VITALS (11 sets, daily range): BP systolic 95–116; BP diastolic 52–71
[2017-09-16] MEDS: PANTOPRAZOLE SODIUM 80 MG in SODIUM CHLORIDE 0.9% 100 ML IV SCH ×3 (00:18→21:02)
[2017-09-16] MEDS: OxyCODONE HCL/ACETAMINOPHEN 10-325 MG TABLET PO PRN ×4 (05:42→21:05)
[2017-09-16] MEDS: SOD FERRIC GLUC COMPLX/SUCROSE 125 MG in SODIUM CHLORIDE 0.9% 100 ML IV SCH (08:08)
[2017-09-16] MEDS ORDERED: TraMADol HCL 50 MG TABLET PO PRN (08:15)
[2017-09-16 08:41] LABS: BASOPHILS % (AUTO) 0.3 % (0.0-2.0); EOSINOPHILS % (AUTO) 0.8 % (1.0-6.0); HEMATOCRIT 30.3 % (36-46); HEMOGLOBIN 10.1 g/dL (12.0-16.0); LYMPHOCYTES % (AUTO) 10.7 % (22.0-44.0); MEAN CORPUSCULAR HEMOGLOBIN 29.8 pg (26.0-34.0); MEAN CORPUSCULAR HGB CONC 33.3 G/dL (31.0-37.0); MEAN CORPUSCULAR VOLUME 89 fL (80-100); MONOCYTES # (AUTO) 1.7 K/uL (0.1-1.0); NEUTROPHILS # (AUTO) 6.5 K/uL (1.8-7.7); NEUTROPHILS % (AUTO) 70.2 % (40.0-70.0); PLATELET COUNT (AUTO) 123 K/uL (150-450); RED BLOOD CELL COUNT(AUTO) 3.39 MIL/uL (4.00-5.20); RED CELL DISTRIBUTION WIDTH 17.7 % (11.5-14.5); WHITE BLOOD COUNT (AUTO) 9.2 K/uL (4.5-11.0)
[2017-09-16 09:01] LABS: CALCIUM, TOTAL 7.7 mg/dL (8.8-10.5); CREATININE 4.87 mg/dL (0.60-1.30); MAGNESIUM 1.2 mg/dL (1.80-2.40)
[2017-09-16] MEDS: METOPROLOL TARTRATE 25 MG TABLET PO SCH ×2 (09:02→21:06)
[2017-09-16] MEDS: AMPICILLIN TRIHYDRATE 500 MG CAPSULE PO SCH ×4 (09:14→21:03)
[2017-09-16] MEDS ORDERED: SODIUM CHLORIDE 0.9% 250 ML IV ONE (09:17)
[2017-09-16 12:14] LABS: RBC MORPHOLOGY COMMENT ABNORMAL RBC MORPH
[2017-09-16 12:23] LABS: GLUCOSE,POINT OF CARE 109 MG/DL (70-110)
[2017-09-16] MEDS: DEXTROSE 5%-0.45% SODIUM CHL 1,000 ML IV SCH (14:42)
[2017-09-17] VITALS (8 sets, daily range): BP systolic 102–141; BP diastolic 58–88
[2017-09-17 02:10] LABS: GLUCOSE,POINT OF CARE 123 MG/DL (70-110)
[2017-09-17 02:10] LABS: GLUCOSE,POINT OF CARE 115 MG/DL (70-110)
[2017-09-17] MEDS: PANTOPRAZOLE SODIUM 80 MG in SODIUM CHLORIDE 0.9% 100 ML IV SCH (05:52)
[2017-09-17 06:58] LABS: ALBUMIN 2.2 g/dL (3.4-5.0); BILIRUBIN,TOTAL 0.6 mg/dL (0.1-1.0); CREATININE 6.15 mg/dL (0.60-1.30); MAGNESIUM 1.4 mg/dL (1.80-2.40); PHOSPHORUS 4.3 mg/dL (2.5-4.9); TOTAL PROTEIN, SERUM 5.2 g/dL (6.4-8.2)
[2017-09-17 07:08] LABS: BASOPHILS % (AUTO) 0.1 % (0.0-2.0); EOSINOPHILS % (AUTO) 1.5 % (1.0-6.0); HEMATOCRIT 30.2 % (36-46); HEMOGLOBIN 9.9 g/dL (12.0-16.0); LYMPHOCYTES # (AUTO) 1.2 K/uL (1.0-4.8); LYMPHOCYTES % (AUTO) 10.4 % (22.0-44.0); MEAN CORPUSCULAR HEMOGLOBIN 29.8 pg (26.0-34.0); MEAN CORPUSCULAR HGB CONC 32.8 G/dL (31.0-37.0); MEAN CORPUSCULAR VOLUME 91 fL (80-100); MONOCYTES # (AUTO) 1.7 K/uL (0.1-1.0); MONOCYTES % (AUTO) 14.6 % (2.0-9.0); NEUTROPHILS # (AUTO) 8.5 K/uL (1.8-7.7); NEUTROPHILS % (AUTO) 73.4 % (40.0-70.0); PLATELET COUNT (AUTO) 127 K/uL (150-450); RED BLOOD CELL COUNT(AUTO) 3.33 MIL/uL (4.00-5.20); RED CELL DISTRIBUTION WIDTH 18.2 % (11.5-14.5); WHITE BLOOD COUNT (AUTO) 11.5 K/uL (4.5-11.0)
[2017-09-17 08:39] LABS: RBC MORPHOLOGY COMMENT ABNORMAL RBC MORPH
[2017-09-17] MEDS: SOD FERRIC GLUC COMPLX/SUCROSE 125 MG in SODIUM CHLORIDE 0.9% 100 ML IV SCH (08:47)
[2017-09-17] MEDS: DEXTROSE 5%-0.45% SODIUM CHL 1,000 ML IV SCH (08:47)
[2017-09-17] MEDS: AMPICILLIN TRIHYDRATE 500 MG CAPSULE PO SCH ×4 (08:50→21:23)
[2017-09-17] MEDS: VITAMIN B COMP/VIT C/FOLIC ACID CAPSULE PO SCH (08:50)
[2017-09-17] MEDS: METOPROLOL TARTRATE 25 MG TABLET PO SCH ×2 (08:50→21:24)
[2017-09-17] MEDS: EPOETIN ALFA 10,000 UNITS/ML VIAL SQ SCH (08:50)
[2017-09-17] MEDS: PANTOPRAZOLE SODIUM 40 MG/VIAL IVP SCH ×2 (08:50→21:24)
[2017-09-17] MEDS ORDERED: MAGNESIUM OXIDE 400 MG TABLET PO ONE (10:15)
[2017-09-17] MEDS ORDERED: CARV12 PO (11:08)
[2017-09-17] MEDS ORDERED: APIX2.5T PO (11:08)
[2017-09-17] MEDS ORDERED: MethylPREDNISolone SOD SUCC 125 MG/2 ML VIAL IVP ONE (12:00)
[2017-09-17] MEDS ORDERED: DiphenhydrAMINE HCL 50 MG/ML VIAL IVP ONE (12:15)
[2017-09-17] MEDS: CYCLOBENZAPRINE HCL 10 MG TABLET PO SCH ×4 (13:51→21:24)
[2017-09-17] MEDS ORDERED: IOVERSOL 320 MG/ML 100 ML VIAL ONE (15:21)
[2017-09-17] MEDS ORDERED: CYCLOBENZAPRINE HCL 10 MG TABLET PO SCH (16:00)
[2017-09-17] MEDS: DEXTROSE 50%-WATER 25 GM/50 ML SYRINGE IVP PRN (17:31)
[2017-09-18 00:24] LABS: GLUCOSE,POINT OF CARE 92 MG/DL (70-110)
[2017-09-18 04:54] VITALS: BP 121/65
[2017-09-18 06:57] LABS: BASOPHILS % (AUTO) 0.1 % (0.0-2.0); EOSINOPHILS % (AUTO) 0 % (1.0-6.0); HEMATOCRIT 32.2 % (36-46); HEMOGLOBIN 10.5 g/dL (12.0-16.0); LYMPHOCYTES # (AUTO) 0.6 K/uL (1.0-4.8); LYMPHOCYTES % (AUTO) 8.5 % (22.0-44.0); MEAN CORPUSCULAR HEMOGLOBIN 29.8 pg (26.0-34.0); MEAN CORPUSCULAR HGB CONC 32.7 G/dL (31.0-37.0); MEAN CORPUSCULAR VOLUME 91 fL (80-100); MONOCYTES # (AUTO) 0.2 K/uL (0.1-1.0); MONOCYTES % (AUTO) 2.9 % (2.0-9.0); NEUTROPHILS # (AUTO) 6.5 K/uL (1.8-7.7); PLATELET COUNT (AUTO) 139 K/uL (150-450); RED BLOOD CELL COUNT(AUTO) 3.53 MIL/uL (4.00-5.20); RED CELL DISTRIBUTION WIDTH 18.7 % (11.5-14.5); WHITE BLOOD COUNT (AUTO) 7.3 K/uL (4.5-11.0)
[2017-09-18 07:14] LABS: NEUTROPHILS % (AUTO) 88.5 % (40.0-70.0)
[2017-09-18 07:26] LABS: ALBUMIN 2.2 g/dL (3.4-5.0); BILIRUBIN,TOTAL 0.4 mg/dL (0.1-1.0); CALCIUM, TOTAL 8.6 mg/dL (8.8-10.5); CREATININE 5.09 mg/dL (0.60-1.30); MAGNESIUM 1.6 mg/dL (1.80-2.40); POTASSIUM 4.6 mmol/L (3.5-5.1); TOTAL PROTEIN, SERUM 5.7 g/dL (6.4-8.2)
[2017-09-18] MEDS ORDERED: LIDOCAINE HCL/PF 1% 2 ML VIAL INJ ONE (07:29)
[2017-09-18 08:08] VITALS: BP 124/68
[2017-09-18] MEDS: DEXTROSE 5%-0.45% SODIUM CHL 1,000 ML IV SCH (08:39)
[2017-09-18] MEDS: AMPICILLIN TRIHYDRATE 500 MG CAPSULE PO SCH ×3 (08:41→16:38)
[2017-09-18] MEDS: CYCLOBENZAPRINE HCL 10 MG TABLET PO SCH (08:42)
[2017-09-18] MEDS: METOPROLOL TARTRATE 25 MG TABLET PO SCH (08:42)
[2017-09-18] MEDS: VITAMIN B COMP/VIT C/FOLIC ACID CAPSULE PO SCH (08:42)
[2017-09-18] MEDS: PANTOPRAZOLE SODIUM 40 MG/VIAL IVP SCH (08:45)
[2017-09-18] MEDS: SOD FERRIC GLUC COMPLX/SUCROSE 125 MG in SODIUM CHLORIDE 0.9% 100 ML IV SCH (08:46)
[2017-09-18] MEDS ORDERED: CYCLOBENZAPRINE HCL 10 MG TABLET PO PRN (09:30)
[2017-09-18 11:16] VITALS: BP 104/60
[2017-09-18] MEDS ORDERED: DICLOFENAC SODIUM 1% 100 GM GEL [4GM] TP PRN (16:30)
[2017-09-18] MEDS ORDERED: LACTULOSE 20 GM/30 ML SOLUTION UDCUP PO PRN (16:30)
[2017-09-18 16:39] VITALS: BP 116/66
[2017-09-18] MEDS ORDERED: AMPI500C68 PO (17:10)
[2017-09-18] MEDS ORDERED: EPOE10I SQ (17:10)
[2017-09-18] MEDS ORDERED: CYCL10 PO (17:12)
[2017-09-18] MEDS ORDERED: TRAM50TA4 PO (17:15)
[2017-09-18 20:53] LABS: GLUCOSE,POINT OF CARE 132 MG/DL (70-110)
[2017-09-18 20:53] LABS: GLUCOSE,POINT OF CARE 92 MG/DL (70-110)
[2017-09-18 20:53] LABS: GLUCOSE,POINT OF CARE 97 MG/DL (70-110)
[2017-09-18 20:54] LABS: GLUCOSE,POINT OF CARE 140 MG/DL (70-110)
[2017-09-18 20:54] LABS: GLUCOSE COMMENT 1 Juice/Food/D50 Given; GLUCOSE,POINT OF CARE 112 MG/DL (70-110)
[2017-09-18 20:54] LABS: GLUCOSE,POINT OF CARE 125 MG/DL (70-110)
[2017-09-18 20:54] LABS: GLUCOSE,POINT OF CARE 164 MG/DL (70-110)
[2017-09-18 20:54] LABS: GLUCOSE COMMENT 1 Juice/Food/D50 Given; GLUCOSE,POINT OF CARE 33 MG/DL (70-110)
[2017-09-18 20:54] LABS: GLUCOSE COMMENT 1 Juice/Food/D50 Given; GLUCOSE,POINT OF CARE 82 MG/DL (70-110)
[2017-09-18 20:54] LABS: GLUCOSE,POINT OF CARE 133 MG/DL (70-110)
[2017-09-18 20:54] LABS: GLUCOSE,POINT OF CARE 91 MG/DL (70-110)
[2017-09-18 20:54] LABS: GLUCOSE,POINT OF CARE 150 MG/DL (70-110)
[2017-10-22] MEDS ORDERED: PRED20 PO (14:30)
== END 2017-09-18 18:39 | DRG 377 ==
LOC: EMS 11:53 → AHU 13:54 → UNDOADMIN 13:54 → 5N 13:54 → ICU 09-12 12:03 → 5S 09-14 18:43
PROVIDERS: ADMIT Hospitalist; ATTEND Hospitalist
PROC: 30233N1 Transfusion of Nonautologous Red Blood Cells into Peripheral Vein, Percutaneous Approach (ICD-10-PCS; 2017-09-12)
PROC: 4B02XTZ Measurement of Cardiac Defibrillator, External Approach (ICD-10-PCS; 2017-09-13)
PROC: 0DJD8ZZ Inspection of Lower Intestinal Tract, Via Natural or Artificial Opening Endoscopic (ICD-10-PCS; 2017-09-14)
PROC: 0DJ08ZZ Inspection of Upper Intestinal Tract, Via Natural or Artificial Opening Endoscopic (ICD-10-PCS; principal; 2017-09-14 15:00)
PROC: 5A1D70Z Performance of Urinary Filtration, Intermittent, Less than 6 Hours Per Day (ICD-10-PCS; 2017-09-17)
DX: K57.33 Diverticulitis of large intestine without perforation or abscess with bleeding (principal); R57.1 Hypovolemic shock; I13.2 Hypertensive heart and chronic kidney disease with heart failure and with stage 5 chronic kidney disease, or end stage renal disease; I95.9 Hypotension, unspecified; I42.9 Cardiomyopathy, unspecified; I48.0 Paroxysmal atrial fibrillation; N18.6 End stage renal disease; I50.22 Chronic systolic (congestive) heart failure; N28.1 Cyst of kidney, acquired; J44.9 Chronic obstructive pulmonary disease, unspecified; D64.9 Anemia, unspecified; I20.9 Angina pectoris, unspecified; E03.9 Hypothyroidism, unspecified; E78.5 Hyperlipidemia, unspecified; I70.0 Atherosclerosis of aorta; K64.8 Other hemorrhoids; Z96.649 Presence of unspecified artificial hip joint; F41.9 Anxiety disorder, unspecified; D25.9 Leiomyoma of uterus, unspecified; Z82.49 Family history of ischemic heart disease and other diseases of the circulatory system; Z83.3 Family history of diabetes mellitus; Z85.3 Personal history of malignant neoplasm of breast; Z86.73 Personal history of transient ischemic attack (TIA), and cerebral infarction without residual deficits; Z90.12 Acquired absence of left breast and nipple; Z90.49 Acquired absence of other specified parts of digestive tract; Z95.810 Presence of automatic (implantable) cardiac defibrillator; Z99.2 Dependence on renal dialysis; Z91.041 Radiographic dye allergy status
CPT/HCPCS: 36430; 36556; 71275; 74176; 78278; 82962; 83540; 83550; 83735; 84100; 85014; 85018; 86850; 86900; 86901; 86922; 87081; 87086; 90935; 93005; 96365; 96366; 96367; 96368; 96375; 97116; 97166; 97530; 97535; 99291; C9113; J0330; J0744; J0885; J1200; J1265; J2270; J2370; J2405; J2597; J2704; J2916; J2930; J3490; J7030; J7040; J7050; J7060; P9016

== ENCOUNTER 2017-09-24 09:39 | Inpatient (IN) | payer MEDICARE, OTHER ==
[~2017-09-24] VITALS: Ht 165.1 cm; Wt 74.1 kg
[~2017-09-24 09:39] MED LIST changes: +AMPI500C68 PO; -APIX5TAB PO; +CARV12 PO; -CARV6 PO; +CYCL10 PO; +EPOE10I SQ; +FOLI1TAB85 PO; +OXYC-31 PO; +RYTH150 PO; +TRAM50TA4 PO; -VALS40TA4 PO
[2017-09-24 10:33] LABS: BASOPHILS # (AUTO) 0.04 K/uL (0.00-0.20); BASOPHILS % (AUTO) 0.3 % (0.0-2.0); EOSINOPHILS # (AUTO) 0.18 K/uL (0.00-0.70); EOSINOPHILS % (AUTO) 1.48 % (1.0-6.0); HEMATOCRIT 33.1 % (36-46); HEMOGLOBIN 10.7 g/dL (12.0-16.0); LYMPHOCYTES # (AUTO) 0.9 K/uL (1.0-4.8); LYMPHOCYTES % (AUTO) 6.8 % (22.0-44.0); MEAN CORPUSCULAR HEMOGLOBIN 29.5 pg (26.0-34.0); MEAN CORPUSCULAR HGB CONC 32.5 G/dL (31.0-37.0); MEAN CORPUSCULAR VOLUME 91 fL (80-100); MONOCYTES # (AUTO) 1.3 K/uL (0.1-1.0); MONOCYTES % (AUTO) 10.1 % (2.0-9.0); NEUTROPHILS # (AUTO) 10.2 K/uL (1.8-7.7); NEUTROPHILS % (AUTO) 81.3 % (40.0-70.0); PLATELET COUNT (AUTO) 210 K/uL (150-450); RED BLOOD CELL COUNT(AUTO) 3.64 MIL/uL (4.00-5.20); RED CELL DISTRIBUTION WIDTH 18.1 % (11.5-14.5)
[2017-09-24 10:43] LABS: ANION GAP 5 mmol/L (8-16); CALCIUM, TOTAL 8.1 mg/dL (8.8-10.5); CARBON DIOXIDE 31 mmol/L (22-29); CHLORIDE 98 mmol/L (98-107); CREATININE 7.25 mg/dL (0.60-1.30); GLOMERULAR FILTR. RATE CALC 7 mL/min (>60); GLUCOSE,RANDOM 98 mg/dL (70-110); POTASSIUM 5.3 mmol/L (3.5-5.1); SODIUM SERUM 134 mmol/L (136-145); UREA NITROGEN, BLOOD 32 mg/dL (7-18)
[2017-09-24] MEDS ORDERED: ONDANSETRON HCL 4 MG/2 ML VIAL IVP ONE (10:45)
[2017-09-24] MEDS ORDERED: MORPHINE SULFATE 2 MG/ML SYRINGE IVP ONE (10:45)
[2017-09-24 10:46] LABS: INR 1.1 (0.9-1.1); PROTHROMBIN TIME 11.9 SEC (9.4-11.6)
[2017-09-24 10:58] LABS: ALANINE AMINOTRANSFERASE 42 U/L (12-78); ALBUMIN 2.5 g/dL (3.4-5.0); ALKALINE PHOSPHATASE 77 U/L (46-116); ASPARTATE AMINOTRANSFERASE 25 U/L (15-37); BILIRUBIN,TOTAL 0.5 mg/dL (0.1-1.0); CREATINE KINASE, TOTAL 24 U/L (26-192); FREE T4 (FREE THYROXINE) 0.97 ng/dL (0.76-1.46); THYROID STIMULATING HORMONE 15.76 uIU/mL (0.36-3.74); TOTAL PROTEIN, SERUM 6.2 g/dL (6.4-8.2)
[2017-09-24 11:00] LABS: B-TYPE NATRIURETIC PEPTIDE 2310 pg/mL (0-100)
[2017-09-24] MEDS ORDERED: ACETAMINOPHEN 325 MG TABLET PO PRN (11:45)
[2017-09-24] MEDS ORDERED: 0.9% SODIUM CHLORIDE 10 ML SYRINGE IVP PRN (11:45)
[2017-09-24 14:19] VITALS: BP 129/67
[2017-09-24] MEDS: VITAMIN B COMP/VIT C/FOLIC ACID CAPSULE PO SCH ×2 (15:17→15:19)
[2017-09-24 15:38] VITALS: BP 122/70
[2017-09-24] MEDS ORDERED: TraMADol HCL 50 MG TABLET PO PRN (17:30)
[2017-09-24] MEDS: CALCIUM ACETATE 667 MG CAPSULE PO SCH (17:37)
[2017-09-24] MEDS: HYDROmorphone 2 MG/ML SYRINGE IVP PRN ×2 (17:38→22:12)
[2017-09-24 20:38] VITALS: BP 117/75
[2017-09-24] MEDS: CARVEDILOL 12.5 MG TABLET PO SCH (20:49)
[2017-09-24] MEDS: OMEPRAZOLE 20 MG CAPSULE PO SCH (20:49)
[2017-09-24] MEDS: ATORVASTATIN CALCIUM 20 MG TABLET PO SCH (20:49)
[2017-09-24 23:55] VITALS: BP 97/51
[2017-09-25] MEDS ORDERED: SODIUM CHLORIDE 0.9% 250 ML IV ONE (04:18)
[2017-09-25] MEDS: LEVOTHYROXINE SODIUM 150 MCG TABLET PO SCH (05:40)
[2017-09-25 06:03] VITALS: BP 128/79
[2017-09-25] MEDS: HYDROmorphone 2 MG/ML SYRINGE IVP PRN ×3 (06:07→14:55)
[2017-09-25 07:05] VITALS: BP 111/60
[2017-09-25 07:08] LABS: EOSINOPHILS % (AUTO) 1.7 % (1.0-6.0); HEMATOCRIT 31.8 % (36-46); HEMOGLOBIN 10.4 g/dL (12.0-16.0); LYMPHOCYTES # (AUTO) 0.7 K/uL (1.0-4.8); LYMPHOCYTES % (AUTO) 7.7 % (22.0-44.0); MEAN CORPUSCULAR HEMOGLOBIN 29.8 pg (26.0-34.0); MEAN CORPUSCULAR HGB CONC 32.7 G/dL (31.0-37.0); MEAN CORPUSCULAR VOLUME 91 fL (80-100); MONOCYTES # (AUTO) 1.4 K/uL (0.1-1.0); MONOCYTES % (AUTO) 15.6 % (2.0-9.0); NEUTROPHILS # (AUTO) 6.7 K/uL (1.8-7.7); PLATELET COUNT (AUTO) 218 K/uL (150-450); RED BLOOD CELL COUNT(AUTO) 3.48 MIL/uL (4.00-5.20); RED CELL DISTRIBUTION WIDTH 18.2 % (11.5-14.5)
[2017-09-25 07:30] LABS: ALBUMIN 2.2 g/dL (3.4-5.0); BILIRUBIN,TOTAL 0.5 mg/dL (0.1-1.0); CALCIUM, TOTAL 7.8 mg/dL (8.8-10.5); CREATININE 8.65 mg/dL (0.60-1.30); POTASSIUM 5.8 mmol/L (3.5-5.1); TOTAL PROTEIN, SERUM 5.8 g/dL (6.4-8.2)
[2017-09-25] MEDS: CINACALCET HCL 30 MG TABLET PO SCH (08:08)
[2017-09-25] MEDS: CALCIUM ACETATE 667 MG CAPSULE PO SCH ×3 (08:08→18:00)
[2017-09-25] MEDS: OMEPRAZOLE 20 MG CAPSULE PO SCH ×2 (09:00→20:48)
[2017-09-25] MEDS ORDERED: [UNRECOGNIZED DRUG - OTHER] PO SCH (09:00)
[2017-09-25] MEDS: CARVEDILOL 12.5 MG TABLET PO SCH ×2 (09:00→20:48)
[2017-09-25] MEDS: MONTELUKAST SODIUM 10 MG TABLET PO SCH (09:00)
[2017-09-25 11:23] VITALS: BP 101/58
[2017-09-25 15:59] VITALS: BP 115/87
[2017-09-25] MEDS ORDERED: DEXTROSE 50%-WATER 25 GM/50 ML SYRINGE IVP ONE ×2 (18:19→18:30)
[2017-09-25] MEDS: OxyCODONE HCL/ACETAMINOPHEN 10-325 MG TABLET PO PRN (18:25)
[2017-09-25] MEDS: EPOETIN ALFA 10,000 UNITS/ML VIAL SQ SCH (18:26)
[2017-09-25] MEDS ORDERED: LIDOCAINE HCL/PF 1% 2 ML VIAL ONE (19:32)
[2017-09-25 20:00] VITALS: BP 96/63
[2017-09-25] MEDS: ATORVASTATIN CALCIUM 20 MG TABLET PO SCH (20:48)
[2017-09-25] MEDS ORDERED: PENTETATE DTPA TC99M/MCL ISOTOPE 1 EA INJ INJ ONE (21:00)
[2017-09-25] MEDS ORDERED: MAA ALBUMIN AGGREGATED TC99M/UD<10MCL ISOTOPE 1 EA INJ INJ ONE (21:20)
[2017-09-25 22:03] LABS: GLUCOMETER DEV NAME(LOC) 5N 1M; GLUCOSE,POINT OF CARE 40 MG/DL (70-110)
[2017-09-26] VITALS (7 sets, daily range): BP systolic 93–125; BP diastolic 57–74
[2017-09-26] MEDS: OxyCODONE HCL/ACETAMINOPHEN 10-325 MG TABLET PO PRN ×2 (04:09→10:42)
[2017-09-26] MEDS: LEVOTHYROXINE SODIUM 150 MCG TABLET PO SCH (05:59)
[2017-09-26 06:14] LABS: GLUCOMETER DEV NAME(LOC) 5N 1M; GLUCOSE,POINT OF CARE 99 MG/DL (70-110)
[2017-09-26 07:28] LABS: ANION GAP 8 mmol/L (8-16); CALCIUM, TOTAL 7.7 mg/dL (8.8-10.5); CARBON DIOXIDE 28 mmol/L (22-29); CHLORIDE 98 mmol/L (98-107); CREATINE KINASE, TOTAL 11 U/L (26-192); CREATININE 6.64 mg/dL (0.60-1.30); GLOMERULAR FILTR. RATE CALC 7 mL/min (>60); GLUCOSE,RANDOM 83 mg/dL (70-110); POTASSIUM 4.8 mmol/L (3.5-5.1); SODIUM SERUM 134 mmol/L (136-145); UREA NITROGEN, BLOOD 29 mg/dL (7-18)
[2017-09-26 07:49] LABS: B-TYPE NATRIURETIC PEPTIDE 1820 pg/mL (0-100)
[2017-09-26] MEDS: CALCIUM ACETATE 667 MG CAPSULE PO SCH ×3 (08:06→17:52)
[2017-09-26] MEDS: CINACALCET HCL 30 MG TABLET PO SCH (08:06)
[2017-09-26] MEDS: OMEPRAZOLE 20 MG CAPSULE PO SCH ×2 (08:06→21:34)
[2017-09-26] MEDS: MONTELUKAST SODIUM 10 MG TABLET PO SCH (08:06)
[2017-09-26] MEDS: VITAMIN B COMP/VIT C/FOLIC ACID CAPSULE PO SCH (08:06)
[2017-09-26] MEDS ORDERED: MAG HYDROX/AL HYDROX/SIMETH ES 30 ML SUSPENSION UDCUP PO ONE (08:45)
[2017-09-26] MEDS: CARVEDILOL 12.5 MG TABLET PO SCH ×2 (09:00→21:36)
[2017-09-26] MEDS: HYDROmorphone 2 MG/ML SYRINGE IVP PRN ×2 (13:25→20:17)
[2017-09-26] MEDS: MAGNESIUM HYDROXIDE SUSPENSION 30 ML UDCUP PO PRN (18:39)
[2017-09-26] MEDS: ATORVASTATIN CALCIUM 20 MG TABLET PO SCH (21:35)
[2017-09-27] MEDS: OxyCODONE HCL/ACETAMINOPHEN 10-325 MG TABLET PO PRN (01:21)
[2017-09-27 04:54] VITALS: BP 101/57
[2017-09-27] MEDS: LEVOTHYROXINE SODIUM 150 MCG TABLET PO SCH (05:52)
[2017-09-27] MEDS: HYDROmorphone 2 MG/ML SYRINGE IVP PRN (07:00)
[2017-09-27] MEDS ORDERED: DIGOXIN 250 MCG/ML 2 ML AMP IVP ONE (08:15)
[2017-09-27] MEDS: MONTELUKAST SODIUM 10 MG TABLET PO SCH (08:42)
[2017-09-27] MEDS: CINACALCET HCL 30 MG TABLET PO SCH (08:42)
[2017-09-27] MEDS: CALCIUM ACETATE 667 MG CAPSULE PO SCH ×3 (08:42→17:19)
[2017-09-27] MEDS: VITAMIN B COMP/VIT C/FOLIC ACID CAPSULE PO SCH (08:42)
[2017-09-27] MEDS: CARVEDILOL 12.5 MG TABLET PO SCH ×2 (08:42→21:30)
[2017-09-27] MEDS: OMEPRAZOLE 20 MG CAPSULE PO SCH ×2 (08:42→21:30)
[2017-09-27] MEDS ORDERED: EPOETIN ALFA 10,000 UNITS/ML VIAL SQ SCH (09:00)
[2017-09-27 09:06] VITALS: BP 107/57
[2017-09-27 09:10] LABS: BASOPHILS # (AUTO) 0.01 K/uL (0.00-0.20); BASOPHILS % (AUTO) 0.1 % (0.0-2.0); EOSINOPHILS # (AUTO) 0.15 K/uL (0.00-0.70); EOSINOPHILS % (AUTO) 2.11 % (1.0-6.0); HEMATOCRIT 30.1 % (36-46); HEMOGLOBIN 9.6 g/dL (12.0-16.0); LYMPHOCYTES # (AUTO) 0.5 K/uL (1.0-4.8); LYMPHOCYTES % (AUTO) 6.9 % (22.0-44.0); MEAN CORPUSCULAR HEMOGLOBIN 29.3 pg (26.0-34.0); MEAN CORPUSCULAR VOLUME 92 fL (80-100); MONOCYTES # (AUTO) 1.3 K/uL (0.1-1.0); MONOCYTES % (AUTO) 17.7 % (2.0-9.0); NEUTROPHILS # (AUTO) 5.3 K/uL (1.8-7.7); NEUTROPHILS % (AUTO) 73.2 % (40.0-70.0); PLATELET COUNT (AUTO) 201 K/uL (150-450); RED BLOOD CELL COUNT(AUTO) 3.29 MIL/uL (4.00-5.20); RED CELL DISTRIBUTION WIDTH 17.8 % (11.5-14.5)
[2017-09-27 09:15] LABS: CALCIUM, TOTAL 7.9 mg/dL (8.8-10.5); CREATININE 8.49 mg/dL (0.60-1.30); POTASSIUM 5.3 mmol/L (3.5-5.1)
[2017-09-27] MEDS: MAGNESIUM HYDROXIDE SUSPENSION 30 ML UDCUP PO PRN (10:09)
[2017-09-27 11:44] VITALS: BP 121/77
[2017-09-27 12:37] LABS: GLUCOMETER DEV NAME(LOC) 5N 2R; GLUCOSE,POINT OF CARE 101 MG/DL (70-110)
[2017-09-27] MEDS: CYCLOBENZAPRINE HCL 10 MG TABLET PO PRN ×2 (15:08→21:31)
[2017-09-27 16:00] VITALS: BP 115/61
[2017-09-27] MEDS ORDERED: LACTULOSE 20 GM/30 ML SOLUTION UDCUP PO PRN (16:45)
[2017-09-27] MEDS ORDERED: ACETAMINOPHEN 325 MG TABLET PO PRN (17:30)
[2017-09-27 20:09] VITALS: BP 107/64
[2017-09-27] MEDS: ATORVASTATIN CALCIUM 20 MG TABLET PO SCH (21:31)
[2017-09-27] MEDS: MUPIROCIN CALCIUM 2% 22 GM OINTMENT NASAL SCH (21:31)
[2017-09-28 01:11] VITALS: BP 114/73
[2017-09-28 05:44] VITALS: BP 120/77
[2017-09-28] MEDS: LEVOTHYROXINE SODIUM 150 MCG TABLET PO SCH (06:14)
[2017-09-28 06:21] LABS: EOSINOPHILS % (AUTO) 2.9 % (1.0-6.0); HEMATOCRIT 28.1 % (36-46); HEMOGLOBIN 9.2 g/dL (12.0-16.0); LYMPHOCYTES # (AUTO) 0.6 K/uL (1.0-4.8); LYMPHOCYTES % (AUTO) 9.8 % (22.0-44.0); MEAN CORPUSCULAR HEMOGLOBIN 29.9 pg (26.0-34.0); MEAN CORPUSCULAR HGB CONC 32.9 G/dL (31.0-37.0); MEAN CORPUSCULAR VOLUME 91 fL (80-100); MONOCYTES % (AUTO) 17.8 % (2.0-9.0); NEUTROPHILS % (AUTO) 69.5 % (40.0-70.0); PLATELET COUNT (AUTO) 217 K/uL (150-450); RED BLOOD CELL COUNT(AUTO) 3.09 MIL/uL (4.00-5.20); RED CELL DISTRIBUTION WIDTH 17.1 % (11.5-14.5)
[2017-09-28 06:55] LABS: ALBUMIN 2.1 g/dL (3.4-5.0); BILIRUBIN,TOTAL 0.4 mg/dL (0.1-1.0); CALCIUM, TOTAL 8.2 mg/dL (8.8-10.5); CREATININE 9.63 mg/dL (0.60-1.30); POTASSIUM 5.3 mmol/L (3.5-5.1); TOTAL PROTEIN, SERUM 5.8 g/dL (6.4-8.2)
[2017-09-28] MEDS ORDERED: DiphenhydrAMINE HCL 50 MG/ML VIAL IVP PRN (07:45)
[2017-09-28] MEDS ORDERED: LIDOCAINE HCL/PF 1% 2 ML VIAL ID PRN (07:45)
[2017-09-28] MEDS ORDERED: ALBUMIN HUMAN 25%-12.5GM/50ML IV BOTTLE IV PRN (07:45)
[2017-09-28] MEDS ORDERED: MANNITOL 25%-12.5 GM/50 ML VIAL IVP PRN (07:45)
[2017-09-28 07:51] VITALS: BP 117/75
[2017-09-28] MEDS: CALCIUM ACETATE 667 MG CAPSULE PO SCH ×3 (08:00→18:10)
[2017-09-28] MEDS: CINACALCET HCL 30 MG TABLET PO SCH (08:00)
[2017-09-28] MEDS: CARVEDILOL 12.5 MG TABLET PO SCH ×2 (09:00→17:14)
[2017-09-28] MEDS: OMEPRAZOLE 20 MG CAPSULE PO SCH ×2 (09:00→20:03)
[2017-09-28] MEDS: OxyCODONE HCL/ACETAMINOPHEN 10-325 MG TABLET PO PRN (09:52)
[2017-09-28 10:47] VITALS: BP 108/79
[2017-09-28] MEDS: MONTELUKAST SODIUM 10 MG TABLET PO SCH (12:25)
[2017-09-28] MEDS: VITAMIN B COMP/VIT C/FOLIC ACID CAPSULE PO SCH (12:25)
[2017-09-28] MEDS: PredniSONE 20 MG TABLET PO SCH (12:26)
[2017-09-28] MEDS: MUPIROCIN CALCIUM 2% 22 GM OINTMENT NASAL SCH ×2 (12:26→20:03)
[2017-09-28] MEDS: EPOETIN ALFA 10,000 UNITS/ML VIAL SQ SCH (12:39)
[2017-09-28 14:55] VITALS: BP 105/72
[2017-09-28] MEDS: ATORVASTATIN CALCIUM 20 MG TABLET PO SCH (20:03)
[2017-09-28 20:04] VITALS: BP 105/63
[2017-09-29 00:39] VITALS: BP 97/65
[2017-09-29 04:10] VITALS: BP 111/66
[2017-09-29] MEDS: OxyCODONE HCL/ACETAMINOPHEN 10-325 MG TABLET PO PRN ×2 (04:14→13:01)
[2017-09-29] MEDS: LEVOTHYROXINE SODIUM 150 MCG TABLET PO SCH (05:43)
[2017-09-29 07:23] VITALS: BP 111/71
[2017-09-29] MEDS: CINACALCET HCL 30 MG TABLET PO SCH (09:28)
[2017-09-29] MEDS: CALCIUM ACETATE 667 MG CAPSULE PO SCH ×3 (09:28→18:12)
[2017-09-29] MEDS: OMEPRAZOLE 20 MG CAPSULE PO SCH ×2 (09:28→20:23)
[2017-09-29] MEDS: PredniSONE 20 MG TABLET PO SCH (09:28)
[2017-09-29] MEDS: MONTELUKAST SODIUM 10 MG TABLET PO SCH (09:28)
[2017-09-29] MEDS: CARVEDILOL 12.5 MG TABLET PO SCH ×2 (09:28→20:24)
[2017-09-29] MEDS: VITAMIN B COMP/VIT C/FOLIC ACID CAPSULE PO SCH (09:28)
[2017-09-29] MEDS: MUPIROCIN CALCIUM 2% 22 GM OINTMENT NASAL SCH ×2 (09:37→20:24)
[2017-09-29 11:21] VITALS: BP 97/56
[2017-09-29 15:40] VITALS: BP 100/79
[2017-09-29 20:09] VITALS: BP 115/60
[2017-09-29] MEDS: ATORVASTATIN CALCIUM 20 MG TABLET PO SCH (20:23)
[2017-09-30 00:03] VITALS: BP 106/54
[2017-09-30] MEDS: LEVOTHYROXINE SODIUM 150 MCG TABLET PO SCH (05:22)
[2017-09-30 05:45] VITALS: BP 112/77
[2017-09-30] MEDS ORDERED: LIDOCAINE HCL/PF 1% 2 ML VIAL INJ ONE ×2 (07:12→12:00)
[2017-09-30 08:02] VITALS: BP 118/82
[2017-09-30] MEDS ORDERED: ALBUMIN HUMAN 25%-12.5GM/50ML IV BOTTLE IV PRN (08:15)
[2017-09-30] MEDS ORDERED: MANNITOL 25%-12.5 GM/50 ML VIAL IVP PRN (08:15)
[2017-09-30] MEDS ORDERED: LIDOCAINE HCL/PF 1% 2 ML VIAL ID PRN (08:15)
[2017-09-30] MEDS ORDERED: DiphenhydrAMINE HCL 50 MG/ML VIAL IVP PRN (08:15)
[2017-09-30] MEDS: CINACALCET HCL 30 MG TABLET PO SCH (08:21)
[2017-09-30] MEDS: CALCIUM ACETATE 667 MG CAPSULE PO SCH ×2 (08:21→12:10)
[2017-09-30] MEDS: MUPIROCIN CALCIUM 2% 22 GM OINTMENT NASAL SCH (08:22)
[2017-09-30] MEDS: PredniSONE 20 MG TABLET PO SCH (08:22)
[2017-09-30] MEDS: OMEPRAZOLE 20 MG CAPSULE PO SCH (08:22)
[2017-09-30] MEDS: EPOETIN ALFA 10,000 UNITS/ML VIAL SQ SCH (08:26)
[2017-09-30] MEDS: MONTELUKAST SODIUM 10 MG TABLET PO SCH (08:26)
[2017-09-30] MEDS: CARVEDILOL 12.5 MG TABLET PO SCH (09:00)
[2017-09-30] MEDS ORDERED: SODIUM CHLORIDE 0.9% 2,000 ML IV ONE (11:16)
[2017-09-30 12:09] VITALS: BP 101/71
[2017-09-30] MEDS: VITAMIN B COMP/VIT C/FOLIC ACID CAPSULE PO SCH (12:10)
[2017-09-30 12:34] VITALS: BP 103/65
[2017-09-30] MEDS ORDERED: MUPI1OIN4 NS (14:29)
[2017-09-30] MEDS ORDERED: ACET-784 PO (14:30)
[2017-09-30] MEDS ORDERED: LACT30L PO (14:31)
[2017-09-30 16:10] VITALS: BP 106/55
[2017-10-22] MEDS ORDERED: PRED20 PO (14:30)
== END 2017-09-30 16:55 | DRG 204 ==
LOC: EMS 09:41 → 5N 13:21
PROVIDERS: ADMIT Hospitalist; ATTEND Hospitalist
DX: R07.81 Pleurodynia (principal); I13.2 Hypertensive heart and chronic kidney disease with heart failure and with stage 5 chronic kidney disease, or end stage renal disease; I47.2 Ventricular tachycardia; I42.9 Cardiomyopathy, unspecified; E87.5 Hyperkalemia; K57.92 Diverticulitis of intestine, part unspecified, without perforation or abscess without bleeding; I48.0 Paroxysmal atrial fibrillation; N18.6 End stage renal disease; I50.22 Chronic systolic (congestive) heart failure; I20.9 Angina pectoris, unspecified; Z85.3 Personal history of malignant neoplasm of breast; E03.9 Hypothyroidism, unspecified; Z88.8 Allergy status to other drugs, medicaments and biological substances; Z99.2 Dependence on renal dialysis; Z96.649 Presence of unspecified artificial hip joint; Z95.810 Presence of automatic (implantable) cardiac defibrillator; Z86.73 Personal history of transient ischemic attack (TIA), and cerebral infarction without residual deficits; Z83.3 Family history of diabetes mellitus; Z82.49 Family history of ischemic heart disease and other diseases of the circulatory system; R09.1 Pleurisy; J44.9 Chronic obstructive pulmonary disease, unspecified; D64.9 Anemia, unspecified; C50.919 Malignant neoplasm of unspecified site of unspecified female breast; Z22.322 Carrier or suspected carrier of Methicillin resistant Staphylococcus aureus
CPT/HCPCS: 78582; 82962; 83735; 84439; 84443; 87081; 87340; 90935; 93005; 93306; 96374; 96375; 97116; 97162; 97530; 99285; A9539; A9540; J0885; J1160; J1170; J2270; J2405; J3490; J7030; J7050

== ENCOUNTER 2017-10-10 05:45 | Inpatient (IN) | payer MEDICARE, OTHER ==
[~2017-10-10] VITALS: Ht 165.1 cm; Wt 72.8 kg
[~2017-10-10 05:45] MED LIST changes: +ACET-784 PO; +LACT30L PO; +MUPI1OIN4 NS
[2017-10-10] MEDS ORDERED: DONNATAL/LIDOCAINE/MAALOX 55 ML BOTTLE PO ONE (06:45)
[2017-10-10 06:50] LABS: EOSINOPHILS # (AUTO) 0.14 K/uL (0.00-0.70); HEMATOCRIT 31.6 % (36-46); HEMOGLOBIN 9.9 g/dL (12.0-16.0); LYMPHOCYTES # (AUTO) 0.7 K/uL (1.0-4.8); LYMPHOCYTES % (AUTO) 7.8 % (22.0-44.0); MEAN CORPUSCULAR HEMOGLOBIN 29.1 pg (26.0-34.0); MEAN CORPUSCULAR HGB CONC 31.4 G/dL (31.0-37.0); MEAN CORPUSCULAR VOLUME 93 fL (80-100); MONOCYTES # (AUTO) 1.3 K/uL (0.1-1.0); MONOCYTES % (AUTO) 14.4 % (2.0-9.0); NEUTROPHILS # (AUTO) 6.7 K/uL (1.8-7.7); NEUTROPHILS % (AUTO) 76.2 % (40.0-70.0); PLATELET COUNT (AUTO) 128 K/uL (150-450); RED BLOOD CELL COUNT(AUTO) 3.41 MIL/uL (4.00-5.20); RED CELL DISTRIBUTION WIDTH 20.2 % (11.5-14.5); WHITE BLOOD COUNT (AUTO) 8.7 K/uL (4.5-11.0)
[2017-10-10 07:02] LABS: ANION GAP 8 mmol/L (8-16); CALCIUM, TOTAL 7.5 mg/dL (8.8-10.5); CARBON DIOXIDE 33 mmol/L (22-29); CHLORIDE 97 mmol/L (98-107); CREATININE 6.23 mg/dL (0.60-1.30); GLOMERULAR FILTR. RATE CALC 8 mL/min (>60); INR 1.1 (0.9-1.1); POTASSIUM 5.3 mmol/L (3.5-5.1); SODIUM SERUM 138 mmol/L (136-145); UREA NITROGEN, BLOOD 44 mg/dL (7-18)
[2017-10-10 07:08] LABS: ALANINE AMINOTRANSFERASE 36 U/L (12-78); ALBUMIN 2.9 g/dL (3.4-5.0); ASPARTATE AMINOTRANSFERASE 16 U/L (15-37); BILIRUBIN,TOTAL 0.6 mg/dL (0.1-1.0); CREATINE KINASE, TOTAL 19 U/L (26-192); TOTAL PROTEIN, SERUM 6.5 g/dL (6.4-8.2)
[2017-10-10 07:17] LABS: B-TYPE NATRIURETIC PEPTIDE 2460 pg/mL (0-100)
[2017-10-10] MEDS ORDERED: 0.9% SODIUM CHLORIDE 10 ML SYRINGE IVP PRN (07:45)
[2017-10-10] MEDS ORDERED: ACETAMINOPHEN 325 MG TABLET PO PRN (07:45)
[2017-10-10] MEDS ORDERED: MORPHINE SULFATE 4 MG/ML SYRINGE IVP ONE (08:15)
[2017-10-10] MEDS ORDERED: ONDANSETRON HCL 4 MG/2 ML VIAL IVP ONE (08:15)
[2017-10-10 09:39] VITALS: BP 128/99
[2017-10-10 11:11] VITALS: BP 135/87
[2017-10-10] MEDS ORDERED: MORPHINE SULFATE 2 MG/ML SYRINGE IVP ONE (13:00)
[2017-10-10] MEDS ORDERED: MethylPREDNISolone SOD SUCC 125 MG/2 ML VIAL IVP ONE (13:00)
[2017-10-10 15:07] VITALS: BP 121/92
[2017-10-10] MEDS ORDERED: TraMADol HCL 50 MG TABLET PO PRN (18:00)
[2017-10-10] MEDS ORDERED: PredniSONE 20 MG TABLET PO SCH (18:00)
[2017-10-10] MEDS: CALCIUM ACETATE 667 MG CAPSULE PO SCH (18:00)
[2017-10-10] MEDS ORDERED: CYCLOBENZAPRINE HCL 10 MG TABLET PO PRN (18:00)
[2017-10-10] MEDS ORDERED: LACTULOSE 20 GM/30 ML SOLUTION UDCUP PO PRN (18:00)
[2017-10-10] MEDS ORDERED: OxyCODONE HCL/ACETAMINOPHEN 10-325 MG TABLET PO PRN (18:00)
[2017-10-10] MEDS ORDERED: HYDROmorphone 2 MG/ML SYRINGE IVP PRN (18:00)
[2017-10-10] MEDS: OxyCODONE HCL/ACETAMINOPHEN 10-325 MG TABLET PO SCH (18:09)
[2017-10-10 19:08] VITALS: BP 120/74
[2017-10-10] MEDS: PROPAFENONE HCL 150 MG TABLET PO SCH (20:22)
[2017-10-10] MEDS: CARVEDILOL 12.5 MG TABLET PO SCH (20:22)
[2017-10-10] MEDS: ATORVASTATIN CALCIUM 20 MG TABLET PO SCH (20:22)
[2017-10-10] MEDS: OMEPRAZOLE 20 MG CAPSULE PO SCH (20:22)
[2017-10-10] MEDS: MUPIROCIN CALCIUM 2% 22 GM OINTMENT NASAL SCH (20:23)
[2017-10-10 23:25] VITALS: BP 126/78
[2017-10-11] VITALS (7 sets, daily range): BP systolic 116–155; BP diastolic 66–86
[2017-10-11] MEDS: OxyCODONE HCL/ACETAMINOPHEN 10-325 MG TABLET PO SCH ×4 (00:11→18:44)
[2017-10-11] MEDS: LEVOTHYROXINE SODIUM 150 MCG TABLET PO SCH (05:52)
[2017-10-11 06:41] LABS: ALBUMIN 2.7 g/dL (3.4-5.0); BILIRUBIN,TOTAL 0.7 mg/dL (0.1-1.0); CALCIUM, TOTAL 7.3 mg/dL (8.8-10.5); CREATININE 7.78 mg/dL (0.60-1.30); TOTAL PROTEIN, SERUM 6.1 g/dL (6.4-8.2)
[2017-10-11 06:49] LABS: POTASSIUM 7.2 mmol/L (3.5-5.1)
[2017-10-11 07:13] LABS: EOSINOPHILS % (AUTO) 0 % (1.0-6.0); HEMATOCRIT 29.8 % (36-46); HEMOGLOBIN 9.7 g/dL (12.0-16.0); LYMPHOCYTES # (AUTO) 0.8 K/uL (1.0-4.8); MEAN CORPUSCULAR HEMOGLOBIN 29.9 pg (26.0-34.0); MEAN CORPUSCULAR HGB CONC 32.4 G/dL (31.0-37.0); MEAN CORPUSCULAR VOLUME 92 fL (80-100); MONOCYTES # (AUTO) 0.4 K/uL (0.1-1.0); MONOCYTES % (AUTO) 5.6 % (2.0-9.0); NEUTROPHILS # (AUTO) 6.3 K/uL (1.8-7.7); NEUTROPHILS % (AUTO) 83.4 % (40.0-70.0); PLATELET COUNT (AUTO) 115 K/uL (150-450); RED BLOOD CELL COUNT(AUTO) 3.24 MIL/uL (4.00-5.20); RED CELL DISTRIBUTION WIDTH 19.7 % (11.5-14.5); WHITE BLOOD COUNT (AUTO) 7.6 K/uL (4.5-11.0)
[2017-10-11 07:14] LABS: RBC MORPHOLOGY COMMENT ABNORMAL RBC MORPH
[2017-10-11] MEDS ORDERED: SODIUM POLYSTYRENE SULFONATE 15 GM/60 ML SUSPENSION BOTTLE PO ONE (07:30)
[2017-10-11] MEDS ORDERED: DEXTROSE 50%-WATER 25 GM/50 ML SYRINGE IVP ONE ×2 (07:30→07:45)
[2017-10-11] MEDS ORDERED: INSULIN REGULAR, HUMAN 100 UNITS/ML IVP ONE (07:30)
[2017-10-11] MEDS ORDERED: CALCIUM GLUCONATE 100 MG/ML 10 ML IVP ONE (07:30)
[2017-10-11] MEDS: CALCIUM ACETATE 667 MG CAPSULE PO SCH ×3 (08:00→18:44)
[2017-10-11] MEDS ORDERED: [UNRECOGNIZED DRUG - OTHER] PO SCH (09:00)
[2017-10-11] MEDS: CARVEDILOL 12.5 MG TABLET PO SCH (09:00)
[2017-10-11] MEDS: PROPAFENONE HCL 150 MG TABLET PO SCH (09:00)
[2017-10-11] MEDS ORDERED: DIGOXIN 250 MCG/ML 2 ML AMP IVP ONE (09:15)
[2017-10-11] MEDS: CINACALCET HCL 30 MG TABLET PO SCH (12:49)
[2017-10-11] MEDS: EPOETIN ALFA 10,000 UNITS/ML VIAL SQ SCH (12:49)
[2017-10-11] MEDS: GABAPENTIN 100 MG CAPSULE PO SCH ×3 (12:50→21:41)
[2017-10-11] MEDS: VITAMIN B COMP/VIT C/FOLIC ACID CAPSULE PO SCH (12:50)
[2017-10-11] MEDS: OMEPRAZOLE 20 MG CAPSULE PO SCH ×2 (12:51→21:41)
[2017-10-11] MEDS: PredniSONE 20 MG TABLET PO SCH (12:51)
[2017-10-11] MEDS: METOPROLOL TARTRATE 50 MG TABLET PO SCH ×2 (12:51→21:41)
[2017-10-11] MEDS: MONTELUKAST SODIUM 10 MG TABLET PO SCH (12:51)
[2017-10-11] MEDS: MUPIROCIN CALCIUM 2% 22 GM OINTMENT NASAL SCH ×2 (12:51→21:42)
[2017-10-11] MEDS: ATORVASTATIN CALCIUM 20 MG TABLET PO SCH (21:41)
[2017-10-12 00:56] VITALS: BP 134/82
[2017-10-12 03:32] VITALS: BP 138/90
[2017-10-12] MEDS: OxyCODONE HCL/ACETAMINOPHEN 10-325 MG TABLET PO SCH ×5 (05:58→23:36)
[2017-10-12] MEDS: LEVOTHYROXINE SODIUM 150 MCG TABLET PO SCH (05:59)
[2017-10-12 06:59] LABS: EOSINOPHILS % (AUTO) 0 % (1.0-6.0); HEMATOCRIT 30.4 % (36-46); HEMOGLOBIN 9.8 g/dL (12.0-16.0); LYMPHOCYTES # (AUTO) 1.4 K/uL (1.0-4.8); LYMPHOCYTES % (AUTO) 13.8 % (22.0-44.0); MEAN CORPUSCULAR HEMOGLOBIN 29.7 pg (26.0-34.0); MEAN CORPUSCULAR HGB CONC 32.3 G/dL (31.0-37.0); MEAN CORPUSCULAR VOLUME 92 fL (80-100); MONOCYTES % (AUTO) 9.7 % (2.0-9.0); NEUTROPHILS # (AUTO) 7.5 K/uL (1.8-7.7); NEUTROPHILS % (AUTO) 76.5 % (40.0-70.0); PLATELET COUNT (AUTO) 137 K/uL (150-450); RED CELL DISTRIBUTION WIDTH 20.1 % (11.5-14.5); WHITE BLOOD COUNT (AUTO) 9.9 K/uL (4.5-11.0)
[2017-10-12 07:33] LABS: ALBUMIN 2.5 g/dL (3.4-5.0); BILIRUBIN,TOTAL 0.6 mg/dL (0.1-1.0); CALCIUM, TOTAL 7.6 mg/dL (8.8-10.5); CREATININE 5.24 mg/dL (0.60-1.30); MAGNESIUM 1.7 mg/dL (1.80-2.40); PHOSPHORUS 4.7 mg/dL (2.5-4.9); TOTAL PROTEIN, SERUM 5.8 g/dL (6.4-8.2)
[2017-10-12 07:39] VITALS: BP 122/94
[2017-10-12] MEDS: PredniSONE 20 MG TABLET PO SCH (08:03)
[2017-10-12] MEDS: CINACALCET HCL 30 MG TABLET PO SCH (08:03)
[2017-10-12] MEDS: CALCIUM ACETATE 667 MG CAPSULE PO SCH ×3 (08:03→18:12)
[2017-10-12] MEDS: MONTELUKAST SODIUM 10 MG TABLET PO SCH (08:04)
[2017-10-12] MEDS: VITAMIN B COMP/VIT C/FOLIC ACID CAPSULE PO SCH (08:04)
[2017-10-12] MEDS: OMEPRAZOLE 20 MG CAPSULE PO SCH ×2 (08:04→20:54)
[2017-10-12] MEDS: METOPROLOL TARTRATE 50 MG TABLET PO SCH ×2 (08:04→20:54)
[2017-10-12] MEDS: GABAPENTIN 100 MG CAPSULE PO SCH ×3 (08:06→20:54)
[2017-10-12] MEDS: MUPIROCIN CALCIUM 2% 22 GM OINTMENT NASAL SCH ×2 (08:06→20:53)
[2017-10-12 09:48] LABS: RBC MORPHOLOGY COMMENT ABNORMAL RBC MORPH
[2017-10-12 11:19] VITALS: BP 122/65
[2017-10-12 15:32] VITALS: BP 119/81
[2017-10-12] MEDS ORDERED: MAGNESIUM SULFATE 1 GM in DEXTROSE 5%-WATER 50 ML IV ONE (18:30)
[2017-10-12] MEDS ORDERED: DICLOFENAC SODIUM 1% 100 GM GEL [2GM] TP PRN (18:30)
[2017-10-12 20:08] VITALS: BP 100/62
[2017-10-12] MEDS: ATORVASTATIN CALCIUM 20 MG TABLET PO SCH (20:53)
[2017-10-13 00:07] VITALS: BP 113/66
[2017-10-13 04:28] VITALS: BP 140/89
[2017-10-13] MEDS: OxyCODONE HCL/ACETAMINOPHEN 10-325 MG TABLET PO SCH ×3 (06:01→18:01)
[2017-10-13] MEDS: LEVOTHYROXINE SODIUM 150 MCG TABLET PO SCH (06:02)
[2017-10-13 06:53] LABS: EOSINOPHILS % (AUTO) 0 % (1.0-6.0); HEMATOCRIT 29.4 % (36-46); HEMOGLOBIN 9.5 g/dL (12.0-16.0); LYMPHOCYTES # (AUTO) 0.7 K/uL (1.0-4.8); LYMPHOCYTES % (AUTO) 10.1 % (22.0-44.0); MEAN CORPUSCULAR HEMOGLOBIN 29.2 pg (26.0-34.0); MEAN CORPUSCULAR HGB CONC 32.4 G/dL (31.0-37.0); MEAN CORPUSCULAR VOLUME 90 fL (80-100); MONOCYTES # (AUTO) 0.8 K/uL (0.1-1.0); MONOCYTES % (AUTO) 10.8 % (2.0-9.0); NEUTROPHILS # (AUTO) 5.7 K/uL (1.8-7.7); PLATELET COUNT (AUTO) 141 K/uL (150-450); RED BLOOD CELL COUNT(AUTO) 3.26 MIL/uL (4.00-5.20); RED CELL DISTRIBUTION WIDTH 19.6 % (11.5-14.5); WHITE BLOOD COUNT (AUTO) 7.3 K/uL (4.5-11.0)
[2017-10-13 06:54] LABS: ALBUMIN 2.5 g/dL (3.4-5.0); BILIRUBIN,TOTAL 0.6 mg/dL (0.1-1.0); CALCIUM, TOTAL 7.3 mg/dL (8.8-10.5); CREATININE 6.47 mg/dL (0.60-1.30); MAGNESIUM 1.7 mg/dL (1.80-2.40); POTASSIUM 5.1 mmol/L (3.5-5.1); TOTAL PROTEIN, SERUM 5.8 g/dL (6.4-8.2)
[2017-10-13] MEDS ORDERED: SODIUM CHLORIDE 0.9% 1,000 ML IV ONE (07:10)
[2017-10-13 07:45] VITALS: BP 148/101
[2017-10-13 08:21] LABS: RBC MORPHOLOGY COMMENT ABNORMAL RBC MORPH
[2017-10-13] MEDS ORDERED: MAGNESIUM OXIDE 400 MG TABLET PO ONE (08:45)
[2017-10-13] MEDS: MUPIROCIN CALCIUM 2% 22 GM OINTMENT NASAL SCH (09:00)
[2017-10-13] MEDS: MONTELUKAST SODIUM 10 MG TABLET PO SCH (09:36)
[2017-10-13] MEDS: GABAPENTIN 100 MG CAPSULE PO SCH ×2 (09:37→16:06)
[2017-10-13] MEDS: CALCIUM ACETATE 667 MG CAPSULE PO SCH ×3 (09:37→18:01)
[2017-10-13] MEDS: CINACALCET HCL 30 MG TABLET PO SCH (09:38)
[2017-10-13] MEDS: PredniSONE 20 MG TABLET PO SCH (09:38)
[2017-10-13] MEDS: VITAMIN B COMP/VIT C/FOLIC ACID CAPSULE PO SCH (09:38)
[2017-10-13] MEDS: OMEPRAZOLE 20 MG CAPSULE PO SCH (09:38)
[2017-10-13] MEDS ORDERED: MANNITOL 25%-12.5 GM/50 ML VIAL IVP PRN (11:00)
[2017-10-13 11:13] VITALS: BP 136/76
[2017-10-13] MEDS: METOPROLOL TARTRATE 50 MG TABLET PO SCH (12:32)
[2017-10-13] MEDS: EPOETIN ALFA 10,000 UNITS/ML VIAL SQ SCH (12:33)
[2017-10-13 15:30] VITALS: BP 114/68
[2017-10-22] MEDS ORDERED: PRED20 PO (14:30)
== END 2017-10-13 20:30 | DRG 193 ==
LOC: EMS 05:47 → 5S 08:44
PROVIDERS: ADMIT Hospitalist; ATTEND Hospitalist
PROC: 5A1D70Z Performance of Urinary Filtration, Intermittent, Less than 6 Hours Per Day (ICD-10-PCS; principal; 2017-10-11)
PROC: 5A1D70Z Performance of Urinary Filtration, Intermittent, Less than 6 Hours Per Day (ICD-10-PCS; 2017-10-13)
DX: R09.1 Pleurisy (principal); N18.6 End stage renal disease; I13.2 Hypertensive heart and chronic kidney disease with heart failure and with stage 5 chronic kidney disease, or end stage renal disease; E87.5 Hyperkalemia; I42.8 Other cardiomyopathies; K57.91 Diverticulosis of intestine, part unspecified, without perforation or abscess with bleeding; I48.0 Paroxysmal atrial fibrillation; I48.92 Unspecified atrial flutter; I50.22 Chronic systolic (congestive) heart failure; I20.9 Angina pectoris, unspecified; D64.9 Anemia, unspecified; E03.9 Hypothyroidism, unspecified; F41.9 Anxiety disorder, unspecified; Z96.649 Presence of unspecified artificial hip joint; E78.5 Hyperlipidemia, unspecified; J45.909 Unspecified asthma, uncomplicated; Z79.899 Other long term (current) drug therapy; Z82.49 Family history of ischemic heart disease and other diseases of the circulatory system; Z83.3 Family history of diabetes mellitus; Z85.3 Personal history of malignant neoplasm of breast; Z86.73 Personal history of transient ischemic attack (TIA), and cerebral infarction without residual deficits; Z90.12 Acquired absence of left breast and nipple; Z95.810 Presence of automatic (implantable) cardiac defibrillator; Z99.2 Dependence on renal dialysis; Z91.041 Radiographic dye allergy status; Z91.018 Allergy to other foods; Z90.49 Acquired absence of other specified parts of digestive tract; Z90.5 Acquired absence of kidney
CPT/HCPCS: 83735; 84100; 84132; 87081; 90935; 93005; 96374; 96375; 99291; J0610; J0885; J1160; J1170; J1815; J2270; J2405; J2930; J3475; J7030; J7060

== ENCOUNTER 2017-10-24 06:15 | Inpatient (IN) | payer MEDICARE, OTHER ==
[~2017-10-24] VITALS: Ht 165.1 cm; Wt 69.0 kg
[~2017-10-24 06:15] MED LIST changes: +PRED20 PO
[2017-10-24 06:42] LABS: GLUCOSE,POINT OF CARE 100 MG/DL (70-110)
[2017-10-24 07:35] LABS: BASOPHILS % (AUTO) 0.1 % (0.0-2.0); EOSINOPHILS % (AUTO) 0.9 % (1.0-6.0); HEMATOCRIT 32.8 % (36-46); HEMOGLOBIN 10.7 g/dL (12.0-16.0); LYMPHOCYTES # (AUTO) 0.5 K/uL (1.0-4.8); LYMPHOCYTES % (AUTO) 5.4 % (22.0-44.0); MEAN CORPUSCULAR HGB CONC 32.6 G/dL (31.0-37.0); MEAN CORPUSCULAR VOLUME 92 fL (80-100); MONOCYTES # (AUTO) 0.4 K/uL (0.1-1.0); NEUTROPHILS # (AUTO) 8.2 K/uL (1.8-7.7); PLATELET COUNT (AUTO) 129 K/uL (150-450); RED BLOOD CELL COUNT(AUTO) 3.56 MIL/uL (4.00-5.20); WHITE BLOOD COUNT (AUTO) 9.1 K/uL (4.5-11.0)
[2017-10-24 07:36] LABS: NEUTROPHILS % (AUTO) 89.6 % (40.0-70.0)
[2017-10-24 08:05] LABS: ALBUMIN 3.5 g/dL (3.4-5.0); BILIRUBIN,TOTAL 0.6 mg/dL (0.1-1.0); CALCIUM, TOTAL 8.1 mg/dL (8.8-10.5); CREATININE 5.96 mg/dL (0.60-1.30); POTASSIUM 5.9 mmol/L (3.5-5.1); TOTAL PROTEIN, SERUM 6.8 g/dL (6.4-8.2)
[2017-10-24] MEDS ORDERED: CYCLOBENZAPRINE HCL 10 MG TABLET PO ONE (10:00)
[2017-10-24] MEDS ORDERED: ACETAMINOPHEN 325 MG TABLET PO PRN (15:15)
[2017-10-24] MEDS ORDERED: 0.9% SODIUM CHLORIDE 10 ML SYRINGE IVP PRN (15:15)
[2017-10-24] MEDS ORDERED: ONDANSETRON HCL 4 MG/2 ML VIAL IVP PRN (15:15)
[2017-10-24 18:47] VITALS: BP 135/92
[2017-10-24 19:51] VITALS: BP 147/79
[2017-10-24 23:03] VITALS: BP 121/93
[2017-10-25 04:05] VITALS: BP 127/90
[2017-10-25] MEDS: HYDROmorphone 2 MG/ML SYRINGE IVP PRN ×2 (04:58→15:21)
[2017-10-25 07:37] VITALS: BP 135/92
[2017-10-25] MEDS ORDERED: MAGNESIUM HYDROXIDE SUSPENSION 30 ML UDCUP PO PRN (08:30)
[2017-10-25] MEDS ORDERED: ACETAMINOPHEN 325 MG TABLET PO PRN (08:30)
[2017-10-25] MEDS ORDERED: TraMADol HCL 50 MG TABLET PO PRN (08:30)
[2017-10-25] MEDS ORDERED: IPRATROPIUM BROMIDE 0.5 MG/2.5 ML NEB SOLUTION NEB PRN (08:30)
[2017-10-25] MEDS ORDERED: ONDANSETRON HCL 4 MG/2 ML VIAL IVP PRN (08:30)
[2017-10-25] MEDS ORDERED: ALBUTEROL SULFATE 2.5 MG/0.5 ML NEB SOLUTION NEB PRN (08:30)
[2017-10-25] MEDS ORDERED: ZOLPIDEM TARTRATE 5 MG TABLET PO PRN (08:30)
[2017-10-25] MEDS ORDERED: BISACODYL 10 MG RECTAL RECTAL SUPPOSITORY PR PRN (08:30)
[2017-10-25] MEDS ORDERED: LACTULOSE 20 GM/30 ML SOLUTION UDCUP PO PRN (08:30)
[2017-10-25] MEDS ORDERED: CYCLOBENZAPRINE HCL 10 MG TABLET PO PRN (08:30)
[2017-10-25] MEDS ORDERED: EPOETIN ALFA 10,000 UNITS/ML VIAL SQ SCH (09:00)
[2017-10-25] MEDS ORDERED: CARVEDILOL 12.5 MG TABLET PO SCH (09:00)
[2017-10-25] MEDS: PredniSONE 20 MG TABLET PO SCH (09:00)
[2017-10-25] MEDS ORDERED: PANTOPRAZOLE SODIUM 40 MG DR TABLET PO SCH (09:00)
[2017-10-25] MEDS ORDERED: PROPAFENONE HCL 150 MG TABLET PO SCH (09:00)
[2017-10-25 09:45] VITALS: BP 136/80
[2017-10-25] MEDS: OxyCODONE HCL/ACETAMINOPHEN 5-325 MG TABLET PO PRN (09:46)
[2017-10-25] MEDS: MONTELUKAST SODIUM 10 MG TABLET PO SCH (09:49)
[2017-10-25] MEDS: OMEPRAZOLE 20 MG CAPSULE PO SCH ×2 (09:49→20:46)
[2017-10-25] MEDS: AMPICILLIN TRIHYDRATE 500 MG CAPSULE PO SCH ×4 (09:49→20:46)
[2017-10-25] MEDS: OxyCODONE HCL/ACETAMINOPHEN 10-325 MG TABLET PO SCH ×2 (12:00→19:02)
[2017-10-25] MEDS: CALCIUM ACETATE 667 MG CAPSULE PO SCH ×2 (15:27→19:02)
[2017-10-25] MEDS: CARVEDILOL 12.5 MG TABLET PO SCH (15:27)
[2017-10-25] MEDS: VITAMIN B COMP/VIT C/FOLIC ACID CAPSULE PO SCH (15:27)
[2017-10-25] MEDS: LEVOTHYROXINE SODIUM 150 MCG TABLET PO SCH (15:28)
[2017-10-25] MEDS: CINACALCET HCL 30 MG TABLET PO SCH (15:28)
[2017-10-25 15:30] VITALS: BP 156/94
[2017-10-25] MEDS ORDERED: LIDOCAINE HCL/PF 1% 2 ML VIAL IARTIC ONE (17:22)
[2017-10-25] MEDS ORDERED: MANNITOL 25%-12.5 GM/50 ML VIAL IVP ONE (17:23)
[2017-10-25] MEDS ORDERED: HEPARIN SODIUM,PORCINE 1,000 UNITS/ML VIAL IVP ONE (17:23)
[2017-10-25 19:44] VITALS: BP 143/87
[2017-10-25] MEDS ORDERED: ATORVASTATIN CALCIUM 20 MG TABLET PO SCH (21:00)
[2017-10-25 23:49] VITALS: BP 129/80
[2017-10-26] MEDS: OxyCODONE HCL/ACETAMINOPHEN 10-325 MG TABLET PO SCH ×4 (00:07→17:58)
[2017-10-26] MEDS: CARVEDILOL 12.5 MG TABLET PO SCH ×3 (00:07→16:22)
[2017-10-26 05:25] VITALS: BP 127/63
[2017-10-26] MEDS: LEVOTHYROXINE SODIUM 150 MCG TABLET PO SCH (05:57)
[2017-10-26 07:37] LABS: EOSINOPHILS % (AUTO) 2.7 % (1.0-6.0); HEMATOCRIT 30.8 % (36-46); LYMPHOCYTES # (AUTO) 0.5 K/uL (1.0-4.8); LYMPHOCYTES % (AUTO) 9.7 % (22.0-44.0); MEAN CORPUSCULAR HGB CONC 32.4 G/dL (31.0-37.0); MEAN CORPUSCULAR VOLUME 93 fL (80-100); MONOCYTES # (AUTO) 0.8 K/uL (0.1-1.0); MONOCYTES % (AUTO) 13.7 % (2.0-9.0); NEUTROPHILS # (AUTO) 4.1 K/uL (1.8-7.7); NEUTROPHILS % (AUTO) 73.9 % (40.0-70.0); PLATELET COUNT (AUTO) 103 K/uL (150-450); RED BLOOD CELL COUNT(AUTO) 3.33 MIL/uL (4.00-5.20); RED CELL DISTRIBUTION WIDTH 21.8 % (11.5-14.5); WHITE BLOOD COUNT (AUTO) 5.5 K/uL (4.5-11.0)
[2017-10-26 07:46] VITALS: BP 119/71
[2017-10-26 07:47] LABS: BILIRUBIN,TOTAL 0.9 mg/dL (0.1-1.0); CALCIUM, TOTAL 8.3 mg/dL (8.8-10.5); CREATININE 5.75 mg/dL (0.60-1.30); MAGNESIUM 1.6 mg/dL (1.80-2.40); POTASSIUM 5.2 mmol/L (3.5-5.1); TOTAL PROTEIN, SERUM 6.2 g/dL (6.4-8.2)
[2017-10-26] MEDS: VITAMIN B COMP/VIT C/FOLIC ACID CAPSULE PO SCH (08:21)
[2017-10-26] MEDS: OMEPRAZOLE 20 MG CAPSULE PO SCH ×2 (08:21→20:50)
[2017-10-26] MEDS: CALCIUM ACETATE 667 MG CAPSULE PO SCH ×3 (08:21→17:58)
[2017-10-26] MEDS: MONTELUKAST SODIUM 10 MG TABLET PO SCH (08:21)
[2017-10-26] MEDS: PredniSONE 20 MG TABLET PO SCH (08:21)
[2017-10-26] MEDS: CINACALCET HCL 30 MG TABLET PO SCH (08:22)
[2017-10-26] MEDS: AMPICILLIN TRIHYDRATE 500 MG CAPSULE PO SCH ×4 (08:22→20:50)
[2017-10-26 11:05] LABS: RBC MORPHOLOGY COMMENT ABNORMAL RBC MORPH
[2017-10-26 11:33] VITALS: BP 125/69
[2017-10-26] MEDS ORDERED: SOD FERRIC GLUC COMPLX/SUCROSE 125 MG in SODIUM CHLORIDE 0.9% 100 ML IV SCH (12:00)
[2017-10-26] MEDS ORDERED: SODIUM CHLORIDE 0.9% 100 ML ONE (13:17)
[2017-10-26 15:28] VITALS: BP 123/80
[2017-10-26 20:15] VITALS: BP 135/80
[2017-10-26] MEDS: HYDROmorphone 2 MG/ML SYRINGE IVP PRN (20:49)
[2017-10-27 00:01] VITALS: BP 119/78
[2017-10-27] MEDS: CARVEDILOL 12.5 MG TABLET PO SCH ×3 (00:08→16:00)
[2017-10-27] MEDS: OxyCODONE HCL/ACETAMINOPHEN 10-325 MG TABLET PO SCH ×4 (00:09→18:00)
[2017-10-27 04:42] VITALS: BP 125/74
[2017-10-27] MEDS: LEVOTHYROXINE SODIUM 150 MCG TABLET PO SCH (06:26)
[2017-10-27 07:16] VITALS: BP 128/96
[2017-10-27] MEDS: OMEPRAZOLE 20 MG CAPSULE PO SCH (08:22)
[2017-10-27] MEDS: AMPICILLIN TRIHYDRATE 500 MG CAPSULE PO SCH (08:22)
[2017-10-27] MEDS: VITAMIN B COMP/VIT C/FOLIC ACID CAPSULE PO SCH (08:22)
[2017-10-27] MEDS: CINACALCET HCL 30 MG TABLET PO SCH (08:22)
[2017-10-27] MEDS: CALCIUM ACETATE 667 MG CAPSULE PO SCH ×3 (08:22→20:19)
[2017-10-27] MEDS: PredniSONE 20 MG TABLET PO SCH (08:22)
[2017-10-27] MEDS: MONTELUKAST SODIUM 10 MG TABLET PO SCH (08:23)
[2017-10-27 11:00] VITALS: BP 114/66
[2017-10-27] MEDS ORDERED: LIDOCAINE HCL/PF 1% 2 ML VIAL INJ ONE (12:00)
[2017-10-27] MEDS ORDERED: LIDOCAINE HCL/PF 1% 2 ML VIAL ID PRN (14:45)
[2017-10-27] MEDS ORDERED: PRED10 PO (15:35)
[2017-10-27 17:36] VITALS: BP 118/74
[2017-10-27] MEDS: OxyCODONE HCL/ACETAMINOPHEN 5-325 MG TABLET PO PRN (18:14)
[2017-10-27 20:31] VITALS: BP 150/97
[2017-10-28 00:10] VITALS: BP 122/59
[2017-10-28] MEDS: OxyCODONE HCL/ACETAMINOPHEN 10-325 MG TABLET PO SCH ×3 (00:26→12:01)
[2017-10-28] MEDS: CARVEDILOL 12.5 MG TABLET PO SCH ×2 (00:26→08:35)
[2017-10-28 05:10] VITALS: BP 122/82
[2017-10-28] MEDS: LEVOTHYROXINE SODIUM 150 MCG TABLET PO SCH (05:37)
[2017-10-28 07:20] VITALS: BP 135/84
[2017-10-28] MEDS ORDERED: DIGOXIN 250 MCG/ML 2 ML AMP IVP ONE (07:45)
[2017-10-28] MEDS: MONTELUKAST SODIUM 10 MG TABLET PO SCH (08:35)
[2017-10-28] MEDS: VITAMIN B COMP/VIT C/FOLIC ACID CAPSULE PO SCH (08:35)
[2017-10-28] MEDS: CINACALCET HCL 30 MG TABLET PO SCH (08:37)
[2017-10-28] MEDS: PredniSONE 20 MG TABLET PO SCH (08:37)
[2017-10-28] MEDS: CALCIUM ACETATE 667 MG CAPSULE PO SCH ×2 (08:38→12:01)
[2017-10-28] MEDS: SUCRALFATE 1 GM/10 ML SUSPENSION UDCUP PO SCH ×2 (08:38→12:03)
[2017-10-28] MEDS ORDERED: PANTOPRAZOLE SODIUM 40 MG DR TABLET PO SCH (09:00)
[2017-10-28] MEDS ORDERED: EPOETIN ALFA 10,000 UNITS/ML VIAL SQ SCH (09:00)
[2017-10-28 11:35] VITALS: BP 135/73
== END 2017-10-28 14:25 | DRG 291 ==
LOC: EMS 06:19 → 5S 16:38
PROVIDERS: ADMIT Hospitalist; ATTEND Hospitalist
PROC: 5A1D70Z Performance of Urinary Filtration, Intermittent, Less than 6 Hours Per Day (ICD-10-PCS; principal; 2017-10-25)
DX: I13.2 Hypertensive heart and chronic kidney disease with heart failure and with stage 5 chronic kidney disease, or end stage renal disease (principal); I50.23 Acute on chronic systolic (congestive) heart failure; E87.5 Hyperkalemia; I42.9 Cardiomyopathy, unspecified; N18.6 End stage renal disease; K57.92 Diverticulitis of intestine, part unspecified, without perforation or abscess without bleeding; B17.9 Acute viral hepatitis, unspecified; R09.1 Pleurisy; I48.91 Unspecified atrial fibrillation; D64.9 Anemia, unspecified; R07.89 Other chest pain; E03.9 Hypothyroidism, unspecified; Z79.899 Other long term (current) drug therapy; Z82.49 Family history of ischemic heart disease and other diseases of the circulatory system; Z83.3 Family history of diabetes mellitus; Z85.3 Personal history of malignant neoplasm of breast; Z86.73 Personal history of transient ischemic attack (TIA), and cerebral infarction without residual deficits; Z95.810 Presence of automatic (implantable) cardiac defibrillator; Z96.649 Presence of unspecified artificial hip joint; Z99.2 Dependence on renal dialysis
CPT/HCPCS: 71020; 82948; 82962; 83540; 83550; 83735; 87040; 87081; 87340; 90935; 93005; 93306; 99285; J0885; J1160; J1170; J1644; J2150; J2916; J3490; J7050

== ENCOUNTER 2017-11-13 12:47 | Inpatient (IN) | payer MEDICARE, OTHER ==
[~2017-11-13] VITALS: Ht 165.1 cm; Wt 67.6 kg
[~2017-11-13 12:47] MED LIST changes: +PRED10 PO
[2017-11-13] MEDS ORDERED: PROP10TA73 PO (14:22)
[2017-11-13] MEDS ORDERED: CARV12 PO (14:22)
[2017-11-13] MEDS ORDERED: IPRNEB IH (14:22)
[2017-11-13] MEDS ORDERED: ZOLP5 PO (14:22)
[2017-11-13 15:08] LABS: BASOPHILS % (AUTO) 0.4 % (0.0-2.0); EOSINOPHILS % (AUTO) 0.8 % (1.0-6.0); HEMATOCRIT 33.4 % (36-46); HEMOGLOBIN 10.7 g/dL (12.0-16.0); LYMPHOCYTES # (AUTO) 0.7 K/uL (1.0-4.8); LYMPHOCYTES % (AUTO) 13.8 % (22.0-44.0); MEAN CORPUSCULAR HEMOGLOBIN 29.9 pg (26.0-34.0); MEAN CORPUSCULAR HGB CONC 32.1 G/dL (31.0-37.0); MEAN CORPUSCULAR VOLUME 93 fL (80-100); MONOCYTES # (AUTO) 1.3 K/uL (0.1-1.0); MONOCYTES % (AUTO) 24.9 % (2.0-9.0); NEUTROPHILS # (AUTO) 3.1 K/uL (1.8-7.7); NEUTROPHILS % (AUTO) 60.1 % (40.0-70.0); PLATELET COUNT (AUTO) 95 K/uL (150-450); RED BLOOD CELL COUNT(AUTO) 3.59 MIL/uL (4.00-5.20); RED CELL DISTRIBUTION WIDTH 20.5 % (11.5-14.5)
[2017-11-13 15:22] LABS: INR 2.7 (0.9-1.1); PROTHROMBIN TIME 28.7 SEC (9.4-11.6)
[2017-11-13 15:24] LABS: ANION GAP 9 mmol/L (8-16); CALCIUM, TOTAL 8.1 mg/dL (8.8-10.5); CARBON DIOXIDE 31 mmol/L (22-29); CHLORIDE 98 mmol/L (98-107); CREATININE 5.75 mg/dL (0.60-1.30); GLOMERULAR FILTR. RATE CALC 9 mL/min (>60); GLUCOSE,RANDOM 87 mg/dL (70-110); POTASSIUM 4.1 mmol/L (3.5-5.1); SODIUM SERUM 138 mmol/L (136-145); UREA NITROGEN, BLOOD 24 mg/dL (7-18)
[2017-11-13 15:30] LABS: ALANINE AMINOTRANSFERASE 10 U/L (12-78); ALBUMIN 3.3 g/dL (3.4-5.0); ALKALINE PHOSPHATASE 85 U/L (46-116); ASPARTATE AMINOTRANSFERASE 24 U/L (15-37); BILIRUBIN,TOTAL 0.5 mg/dL (0.1-1.0); CREATINE KINASE, TOTAL 18 U/L (26-192); TOTAL PROTEIN, SERUM 6.2 g/dL (6.4-8.2)
[2017-11-13 15:39] LABS: B-TYPE NATRIURETIC PEPTIDE 700 pg/mL (0-100)
[2017-11-13 15:50] LABS: PLATELET MORPHOLOGY COMMENT DECREASED
[2017-11-13] MEDS ORDERED: 0.9% SODIUM CHLORIDE 10 ML SYRINGE IVP PRN (16:15)
[2017-11-13] MEDS ORDERED: ACETAMINOPHEN 325 MG TABLET PO PRN (16:15)
[2017-11-13 19:25] VITALS: BP 117/67
[2017-11-14] VITALS (7 sets, daily range): BP systolic 112–136; BP diastolic 59–81
[2017-11-14 07:03] LABS: BASOPHILS % (AUTO) 0.4 % (0.0-2.0); EOSINOPHILS % (AUTO) 1.8 % (1.0-6.0); HEMATOCRIT 29.6 % (36-46); HEMOGLOBIN 9.6 g/dL (12.0-16.0); LYMPHOCYTES # (AUTO) 0.8 K/uL (1.0-4.8); LYMPHOCYTES % (AUTO) 18.5 % (22.0-44.0); MEAN CORPUSCULAR HEMOGLOBIN 30.3 pg (26.0-34.0); MEAN CORPUSCULAR HGB CONC 32.5 G/dL (31.0-37.0); MEAN CORPUSCULAR VOLUME 93 fL (80-100); MONOCYTES # (AUTO) 1.2 K/uL (0.1-1.0); MONOCYTES % (AUTO) 27.9 % (2.0-9.0); NEUTROPHILS # (AUTO) 2.2 K/uL (1.8-7.7); NEUTROPHILS % (AUTO) 51.4 % (40.0-70.0); PLATELET COUNT (AUTO) 93 K/uL (150-450); RED BLOOD CELL COUNT(AUTO) 3.17 MIL/uL (4.00-5.20); RED CELL DISTRIBUTION WIDTH 19.9 % (11.5-14.5)
[2017-11-14 07:36] LABS: ALBUMIN 2.8 g/dL (3.4-5.0); BILIRUBIN,TOTAL 0.5 mg/dL (0.1-1.0); CALCIUM, TOTAL 7.7 mg/dL (8.8-10.5); CREATININE 6.99 mg/dL (0.60-1.30); MAGNESIUM 1.7 mg/dL (1.80-2.40); POTASSIUM 4.1 mmol/L (3.5-5.1); TOTAL PROTEIN, SERUM 5.8 g/dL (6.4-8.2)
[2017-11-14] MEDS ORDERED: HYDROCODONE/ACETAMINOPHEN 5-325 MG TABLET PO PRN (07:45)
[2017-11-14] MEDS ORDERED: CYCLOBENZAPRINE HCL 10 MG TABLET PO PRN (13:30)
[2017-11-14] MEDS ORDERED: ZOLPIDEM TARTRATE 5 MG TABLET PO PRN (13:30)
[2017-11-14] MEDS ORDERED: IPRATROPIUM BROMIDE 0.5 MG/2.5 ML NEB SOLUTION NEB PRN (13:30)
[2017-11-14] MEDS ORDERED: OxyCODONE HCL/ACETAMINOPHEN 10-325 MG TABLET PO SCH (16:00)
[2017-11-14] MEDS: WARFARIN SODIUM 3 MG TABLET PO SCH (17:01)
[2017-11-14] MEDS ORDERED: CINACALCET HCL 30 MG TABLET PO SCH (18:00)
[2017-11-14] MEDS: CINACALCET HCL 30 MG TABLET PO SCH (18:16)
[2017-11-14] MEDS: CALCIUM ACETATE 667 MG CAPSULE PO SCH (18:16)
[2017-11-14] MEDS: OMEPRAZOLE 20 MG CAPSULE PO SCH (21:29)
[2017-11-14] MEDS: PROPRANOLOL HCL 10 MG TABLET PO SCH (21:29)
[2017-11-14] MEDS: ATORVASTATIN CALCIUM 20 MG TABLET PO SCH (21:29)
[2017-11-14] MEDS: VALSARTAN 80 MG TABLET PO SCH (21:35)
[2017-11-14] MEDS: OXYGEN THERAPY IH SCH (21:36)
[2017-11-15] VITALS (7 sets, daily range): BP systolic 102–127; BP diastolic 50–80
[2017-11-15] MEDS: OxyCODONE HCL/ACETAMINOPHEN 10-325 MG TABLET PO PRN ×2 (01:18→12:52)
[2017-11-15] MEDS: LEVOTHYROXINE SODIUM 150 MCG TABLET PO SCH (06:20)
[2017-11-15 06:51] LABS: CALCIUM, TOTAL 7.9 mg/dL (8.8-10.5); CREATININE 9.43 mg/dL (0.60-1.30); POTASSIUM 4.6 mmol/L (3.5-5.1)
[2017-11-15] MEDS: VALSARTAN 80 MG TABLET PO SCH ×2 (09:00→20:28)
[2017-11-15] MEDS ORDERED: [UNRECOGNIZED DRUG - OTHER] PO SCH (09:00)
[2017-11-15] MEDS: OXYGEN THERAPY IH SCH ×2 (09:42→20:28)
[2017-11-15] MEDS: CINACALCET HCL 30 MG TABLET PO SCH ×2 (09:43→17:35)
[2017-11-15] MEDS: MONTELUKAST SODIUM 10 MG TABLET PO SCH (09:43)
[2017-11-15] MEDS: PredniSONE 10 MG TABLET PO SCH (09:43)
[2017-11-15] MEDS: CALCIUM ACETATE 667 MG CAPSULE PO SCH ×3 (09:43→17:35)
[2017-11-15] MEDS: OMEPRAZOLE 20 MG CAPSULE PO SCH ×2 (09:44→20:27)
[2017-11-15] MEDS: EPOETIN ALFA 10,000 UNITS/ML 2 ML VIAL SQ SCH (09:44)
[2017-11-15] MEDS: VITAMIN B COMP/VIT C/FOLIC ACID CAPSULE PO SCH (09:44)
[2017-11-15] MEDS ORDERED: SODIUM CHLORIDE 0.9% 2,000 ML IV ONE (11:33)
[2017-11-15] MEDS: CARVEDILOL 12.5 MG TABLET PO SCH (12:52)
[2017-11-15] MEDS: PROPRANOLOL HCL 10 MG TABLET PO SCH ×3 (12:53→21:00)
[2017-11-15] MEDS ORDERED: LIDOCAINE HCL/PF 1% 2 ML VIAL ID PRN (14:00)
[2017-11-15] MEDS: WARFARIN SODIUM 3 MG TABLET PO SCH (17:35)
[2017-11-15] MEDS: ATORVASTATIN CALCIUM 20 MG TABLET PO SCH (20:27)
[2017-11-16] MEDS ORDERED: LIDOCAINE HCL/PF 1% 2 ML VIAL INJ ONE (05:38)
[2017-11-16 06:02] VITALS: BP 159/71
[2017-11-16] MEDS: LEVOTHYROXINE SODIUM 150 MCG TABLET PO SCH (06:02)
[2017-11-16] MEDS: OxyCODONE HCL/ACETAMINOPHEN 10-325 MG TABLET PO PRN ×2 (06:02→14:48)
[2017-11-16 06:42] VITALS: BP 113/85
[2017-11-16 07:00] VITALS: BP 119/78
[2017-11-16 07:38] LABS: HEMATOCRIT 31.7 % (36-46); HEMOGLOBIN 9.9 g/dL (12.0-16.0); MEAN CORPUSCULAR HEMOGLOBIN 29.6 pg (26.0-34.0); MEAN CORPUSCULAR HGB CONC 31.2 G/dL (31.0-37.0); MEAN CORPUSCULAR VOLUME 95 fL (80-100); PLATELET COUNT (AUTO) 122 K/uL (150-450); RED BLOOD CELL COUNT(AUTO) 3.35 MIL/uL (4.00-5.20); RED CELL DISTRIBUTION WIDTH 20.6 % (11.5-14.5)
[2017-11-16 07:42] LABS: INR 3.3 (0.9-1.1); PROTHROMBIN TIME 34.8 SEC (9.4-11.6)
[2017-11-16 08:19] LABS: ALBUMIN 2.8 g/dL (3.4-5.0); BILIRUBIN,TOTAL 0.5 mg/dL (0.1-1.0); CALCIUM, TOTAL 7.9 mg/dL (8.8-10.5); CREATININE 5.58 mg/dL (0.60-1.30); MAGNESIUM 1.5 mg/dL (1.80-2.40); POTASSIUM 4.8 mmol/L (3.5-5.1); TOTAL PROTEIN, SERUM 6.5 g/dL (6.4-8.2)
[2017-11-16] MEDS: CINACALCET HCL 30 MG TABLET PO SCH ×2 (08:39→18:14)
[2017-11-16] MEDS: VITAMIN B COMP/VIT C/FOLIC ACID CAPSULE PO SCH (08:39)
[2017-11-16] MEDS: PredniSONE 10 MG TABLET PO SCH (08:39)
[2017-11-16] MEDS: OXYGEN THERAPY IH SCH (08:39)
[2017-11-16] MEDS: CALCIUM ACETATE 667 MG CAPSULE PO SCH ×3 (08:40→18:14)
[2017-11-16] MEDS: MONTELUKAST SODIUM 10 MG TABLET PO SCH (08:40)
[2017-11-16] MEDS: PROPRANOLOL HCL 10 MG TABLET PO SCH ×2 (08:40→20:35)
[2017-11-16] MEDS: CARVEDILOL 12.5 MG TABLET PO SCH (08:40)
[2017-11-16] MEDS: OMEPRAZOLE 20 MG CAPSULE PO SCH ×2 (08:40→20:35)
[2017-11-16] MEDS: VALSARTAN 80 MG TABLET PO SCH ×2 (09:00→20:35)
[2017-11-16 09:06] LABS: BAND NEUTROPHILS % (MANUAL) 3 % (1-5); EOSINOPHILS % (MANUAL) 1 % (1-6); LYMPHOCYTES % (MANUAL) 32 % (22-44); MONOCYTES % (MANUAL) 16 % (2-9); SEGMENTED NEUTROPHILS % 48 % (40-70)
[2017-11-16 11:32] VITALS: BP 105/60
[2017-11-16 15:36] VITALS: BP 117/67
[2017-11-16] MEDS ORDERED: WARFARIN SODIUM 2 MG TABLET PO ONE (17:00)
[2017-11-16] MEDS: ATORVASTATIN CALCIUM 20 MG TABLET PO SCH (20:35)
[2017-11-16 20:48] VITALS: BP 114/66
[2017-11-17 00:32] VITALS: BP 113/69
[2017-11-17 04:13] VITALS: BP 114/75
[2017-11-17] MEDS: LEVOTHYROXINE SODIUM 150 MCG TABLET PO SCH (05:53)
[2017-11-17] MEDS: OXYGEN THERAPY IH SCH ×3 (05:55→20:00)
[2017-11-17 06:32] LABS: BASOPHILS # (AUTO) 0.02 K/uL (0.00-0.20); BASOPHILS % (AUTO) 0.3 % (0.0-2.0); EOSINOPHILS # (AUTO) 0.04 K/uL (0.00-0.70); EOSINOPHILS % (AUTO) 0.64 % (1.0-6.0); HEMATOCRIT 28.9 % (36-46); HEMOGLOBIN 9.2 g/dL (12.0-16.0); LYMPHOCYTES # (AUTO) 0.9 K/uL (1.0-4.8); MEAN CORPUSCULAR HEMOGLOBIN 29.6 pg (26.0-34.0); MEAN CORPUSCULAR HGB CONC 31.8 G/dL (31.0-37.0); MEAN CORPUSCULAR VOLUME 93 fL (80-100); MONOCYTES % (AUTO) 15.3 % (2.0-9.0); NEUTROPHILS # (AUTO) 4.7 K/uL (1.8-7.7); NEUTROPHILS % (AUTO) 69.7 % (40.0-70.0); PLATELET COUNT (AUTO) 141 K/uL (150-450); RED CELL DISTRIBUTION WIDTH 20.4 % (11.5-14.5)
[2017-11-17 07:12] LABS: ALBUMIN 2.8 g/dL (3.4-5.0); BILIRUBIN,TOTAL 0.5 mg/dL (0.1-1.0); CALCIUM, TOTAL 7.9 mg/dL (8.8-10.5); CREATININE 7.44 mg/dL (0.60-1.30); MAGNESIUM 1.5 mg/dL (1.80-2.40); POTASSIUM 5.3 mmol/L (3.5-5.1); TOTAL PROTEIN, SERUM 6.3 g/dL (6.4-8.2)
[2017-11-17 07:34] LABS: PHOSPHORUS 2.6 mg/dL (2.5-4.9)
[2017-11-17 07:40] VITALS: BP 147/77
[2017-11-17] MEDS: PROPRANOLOL HCL 10 MG TABLET PO SCH ×2 (09:00→21:47)
[2017-11-17] MEDS: VALSARTAN 80 MG TABLET PO SCH ×2 (09:00→21:47)
[2017-11-17] MEDS: VITAMIN B COMP/VIT C/FOLIC ACID CAPSULE PO SCH (09:17)
[2017-11-17] MEDS: CALCIUM ACETATE 667 MG CAPSULE PO SCH ×3 (09:17→18:15)
[2017-11-17] MEDS: CINACALCET HCL 30 MG TABLET PO SCH ×2 (09:18→18:15)
[2017-11-17] MEDS: OMEPRAZOLE 20 MG CAPSULE PO SCH ×2 (09:18→21:46)
[2017-11-17] MEDS: PredniSONE 10 MG TABLET PO SCH (09:18)
[2017-11-17] MEDS: MONTELUKAST SODIUM 10 MG TABLET PO SCH (09:18)
[2017-11-17] MEDS: EPOETIN ALFA 10,000 UNITS/ML 2 ML VIAL SQ SCH (09:19)
[2017-11-17 10:55] VITALS: BP 130/84
[2017-11-17 11:47] LABS: INR 3.5 (0.9-1.1); PROTHROMBIN TIME 36.8 SEC (9.4-11.6)
[2017-11-17] MEDS: CARVEDILOL 12.5 MG TABLET PO SCH (11:53)
[2017-11-17] MEDS: OxyCODONE HCL/ACETAMINOPHEN 10-325 MG TABLET PO PRN ×2 (11:53→20:14)
[2017-11-17 13:03] VITALS: BP 105/59
[2017-11-17 15:49] VITALS: BP 130/76
[2017-11-17] MEDS ORDERED: LIDOCAINE HCL/PF 1% 2 ML VIAL IM ONE (16:54)
[2017-11-17] MEDS ORDERED: WARFARIN SODIUM 2.5 MG TABLET PO SCH (17:00)
[2017-11-17] MEDS: ATORVASTATIN CALCIUM 20 MG TABLET PO SCH (21:47)
[2017-11-18 00:28] VITALS: BP 123/73
[2017-11-18 04:57] VITALS: BP 119/75
[2017-11-18] MEDS: LEVOTHYROXINE SODIUM 150 MCG TABLET PO SCH (05:47)
[2017-11-18 07:38] VITALS: BP 113/78
[2017-11-18] MEDS: CALCIUM ACETATE 667 MG CAPSULE PO SCH (08:03)
[2017-11-18] MEDS: MONTELUKAST SODIUM 10 MG TABLET PO SCH (08:04)
[2017-11-18] MEDS: PredniSONE 10 MG TABLET PO SCH (08:04)
[2017-11-18] MEDS: CINACALCET HCL 30 MG TABLET PO SCH ×2 (08:04→17:50)
[2017-11-18] MEDS: VALSARTAN 80 MG TABLET PO SCH ×2 (08:04→21:39)
[2017-11-18] MEDS: OMEPRAZOLE 20 MG CAPSULE PO SCH ×2 (08:04→21:38)
[2017-11-18] MEDS: OXYGEN THERAPY IH SCH ×2 (08:05→21:47)
[2017-11-18] MEDS: VITAMIN B COMP/VIT C/FOLIC ACID CAPSULE PO SCH (08:06)
[2017-11-18] MEDS: PROPRANOLOL HCL 10 MG TABLET PO SCH (08:06)
[2017-11-18] MEDS: OxyCODONE HCL/ACETAMINOPHEN 10-325 MG TABLET PO PRN ×2 (08:20→21:44)
[2017-11-18 08:21] LABS: INR 2.4 (0.9-1.1); PROTHROMBIN TIME 24.9 SEC (9.4-11.6)
[2017-11-18 09:52] LABS: CALCIUM, TOTAL 8.3 mg/dL (8.8-10.5); CREATININE 5.31 mg/dL (0.60-1.30); MAGNESIUM 1.5 mg/dL (1.80-2.40); PHOSPHORUS 2.2 mg/dL (2.5-4.9); POTASSIUM 5.3 mmol/L (3.5-5.1)
[2017-11-18] MEDS ORDERED: MethylPREDNISolone SOD SUCC 125 MG/2 ML VIAL IVP ONE ×2 (10:00)
[2017-11-18 10:45] LABS: BASOPHILS % (AUTO) 0.3 % (0.0-2.0); EOSINOPHILS % (AUTO) 1.1 % (1.0-6.0); HEMATOCRIT 33.8 % (36-46); HEMOGLOBIN 10.7 g/dL (12.0-16.0); LYMPHOCYTES % (AUTO) 15.6 % (22.0-44.0); MEAN CORPUSCULAR HGB CONC 31.7 G/dL (31.0-37.0); MEAN CORPUSCULAR VOLUME 95 fL (80-100); MONOCYTES # (AUTO) 1.2 K/uL (0.1-1.0); MONOCYTES % (AUTO) 19.6 % (2.0-9.0); NEUTROPHILS # (AUTO) 3.9 K/uL (1.8-7.7); NEUTROPHILS % (AUTO) 63.4 % (40.0-70.0); PLATELET COUNT (AUTO) 178 K/uL (150-450); RED BLOOD CELL COUNT(AUTO) 3.57 MIL/uL (4.00-5.20); RED CELL DISTRIBUTION WIDTH 20.2 % (11.5-14.5)
[2017-11-18] MEDS ORDERED: DiphenhydrAMINE HCL 25 MG CAPSULE PO ONE (12:30)
[2017-11-18 12:46] VITALS: BP 113/68
[2017-11-18] MEDS ORDERED: IOVERSOL 350 MG/ML 100 ML VIAL ONE (14:25)
[2017-11-18 16:36] VITALS: BP 137/76
[2017-11-18] MEDS: CARVEDILOL 12.5 MG TABLET PO SCH (17:50)
[2017-11-18] MEDS: WARFARIN SODIUM 2 MG TABLET PO SCH (17:50)
[2017-11-18 19:46] VITALS: BP 117/52
[2017-11-19 06:16] VITALS: BP 136/80
[2017-11-19] MEDS: OxyCODONE HCL/ACETAMINOPHEN 10-325 MG TABLET PO PRN ×3 (06:22→20:12)
[2017-11-19] MEDS: LEVOTHYROXINE SODIUM 150 MCG TABLET PO SCH (06:22)
[2017-11-19 07:53] LABS: BASOPHILS % (AUTO) 0.1 % (0.0-2.0); EOSINOPHILS % (AUTO) 0 % (1.0-6.0); HEMATOCRIT 31.6 % (36-46); HEMOGLOBIN 10.1 g/dL (12.0-16.0); LYMPHOCYTES # (AUTO) 0.7 K/uL (1.0-4.8); LYMPHOCYTES % (AUTO) 16.5 % (22.0-44.0); MEAN CORPUSCULAR HEMOGLOBIN 29.9 pg (26.0-34.0); MEAN CORPUSCULAR VOLUME 94 fL (80-100); MONOCYTES # (AUTO) 0.2 K/uL (0.1-1.0); MONOCYTES % (AUTO) 4.5 % (2.0-9.0); NEUTROPHILS # (AUTO) 3.5 K/uL (1.8-7.7); NEUTROPHILS % (AUTO) 78.9 % (40.0-70.0); PLATELET COUNT (AUTO) 198 K/uL (150-450); RED BLOOD CELL COUNT(AUTO) 3.38 MIL/uL (4.00-5.20); RED CELL DISTRIBUTION WIDTH 19.5 % (11.5-14.5)
[2017-11-19 08:02] LABS: INR 2.2 (0.9-1.1); PROTHROMBIN TIME 23.5 SEC (9.4-11.6)
[2017-11-19 08:07] VITALS: BP 148/71
[2017-11-19] MEDS ORDERED: DiphenhydrAMINE HCL 25 MG CAPSULE PO ONE (08:15)
[2017-11-19] MEDS ORDERED: MethylPREDNISolone SOD SUCC 125 MG/2 ML VIAL IVP ONE ×2 (08:15→09:15)
[2017-11-19] MEDS ORDERED: IOVERSOL 350 MG/ML 100 ML VIAL ONE (08:23)
[2017-11-19 08:34] LABS: ALBUMIN 3.1 g/dL (3.4-5.0); BILIRUBIN,TOTAL 0.4 mg/dL (0.1-1.0); CALCIUM, TOTAL 8.1 mg/dL (8.8-10.5); CREATININE 7.35 mg/dL (0.60-1.30); MAGNESIUM 1.6 mg/dL (1.80-2.40); POTASSIUM 5.8 mmol/L (3.5-5.1); TOTAL PROTEIN, SERUM 7.5 g/dL (6.4-8.2)
[2017-11-19] MEDS: CARVEDILOL 12.5 MG TABLET PO SCH (09:00)
[2017-11-19] MEDS: VALSARTAN 80 MG TABLET PO SCH ×2 (09:00→20:10)
[2017-11-19] MEDS: VITAMIN B COMP/VIT C/FOLIC ACID CAPSULE PO SCH (10:01)
[2017-11-19] MEDS: MONTELUKAST SODIUM 10 MG TABLET PO SCH (10:01)
[2017-11-19] MEDS: CINACALCET HCL 30 MG TABLET PO SCH ×2 (10:01→18:37)
[2017-11-19] MEDS: OMEPRAZOLE 20 MG CAPSULE PO SCH ×2 (10:01→20:10)
[2017-11-19] MEDS: PredniSONE 10 MG TABLET PO SCH (10:01)
[2017-11-19] MEDS: OXYGEN THERAPY IH SCH ×2 (10:02→20:13)
[2017-11-19 11:55] VITALS: BP 126/86
[2017-11-19] MEDS: EPOETIN ALFA 10,000 UNITS/ML 2 ML VIAL SQ SCH (15:41)
[2017-11-19 16:09] VITALS: BP 122/80
[2017-11-19] MEDS ORDERED: LIDOCAINE HCL/PF 1% 2 ML VIAL IM ONE (17:03)
[2017-11-19] MEDS: WARFARIN SODIUM 2 MG TABLET PO SCH (18:37)
[2017-11-19 19:30] VITALS: BP 118/78
[2017-11-19 23:48] VITALS: BP 113/59
[2017-11-20] VITALS (7 sets, daily range): BP systolic 117–161; BP diastolic 61–96
[2017-11-20] MEDS: LEVOTHYROXINE SODIUM 150 MCG TABLET PO SCH (05:58)
[2017-11-20] MEDS: OXYGEN THERAPY IH SCH ×2 (07:44→20:33)
[2017-11-20] MEDS: CINACALCET HCL 30 MG TABLET PO SCH ×2 (07:44→18:00)
[2017-11-20] MEDS: PredniSONE 10 MG TABLET PO SCH (07:48)
[2017-11-20] MEDS: OMEPRAZOLE 20 MG CAPSULE PO SCH ×2 (07:49→20:31)
[2017-11-20] MEDS: VALSARTAN 80 MG TABLET PO SCH ×2 (07:49→20:31)
[2017-11-20] MEDS: MONTELUKAST SODIUM 10 MG TABLET PO SCH (07:49)
[2017-11-20] MEDS: VITAMIN B COMP/VIT C/FOLIC ACID CAPSULE PO SCH (07:49)
[2017-11-20] MEDS: OxyCODONE HCL/ACETAMINOPHEN 10-325 MG TABLET PO PRN ×3 (07:49→20:38)
[2017-11-20 09:50] LABS: PROTHROMBIN TIME 80.6 SEC (9.4-11.6)
[2017-11-20 09:55] LABS: INR 7.6 (0.9-1.1)
[2017-11-20 10:57] LABS: INR 2.6 (0.9-1.1); PROTHROMBIN TIME 27.6 SEC (9.4-11.6)
[2017-11-20] MEDS: CARVEDILOL 12.5 MG TABLET PO SCH (14:10)
[2017-11-20] MEDS: WARFARIN SODIUM 2 MG TABLET PO SCH (17:00)
[2017-11-21 05:03] VITALS: BP 113/82
[2017-11-21] MEDS: LEVOTHYROXINE SODIUM 150 MCG TABLET PO SCH (06:04)
[2017-11-21 07:37] VITALS: BP 122/67
[2017-11-21] MEDS: OXYGEN THERAPY IH SCH ×2 (08:00→20:52)
[2017-11-21 08:05] LABS: INR 3.1 (0.9-1.1); PROTHROMBIN TIME 32.6 SEC (9.4-11.6)
[2017-11-21] MEDS: MONTELUKAST SODIUM 10 MG TABLET PO SCH (09:16)
[2017-11-21] MEDS: PredniSONE 10 MG TABLET PO SCH (09:17)
[2017-11-21] MEDS: VALSARTAN 80 MG TABLET PO SCH ×2 (09:17→20:53)
[2017-11-21] MEDS: OMEPRAZOLE 20 MG CAPSULE PO SCH ×2 (09:17→20:52)
[2017-11-21] MEDS: VITAMIN B COMP/VIT C/FOLIC ACID CAPSULE PO SCH (09:17)
[2017-11-21] MEDS: CINACALCET HCL 30 MG TABLET PO SCH ×2 (09:17→17:59)
[2017-11-21] MEDS: OxyCODONE HCL/ACETAMINOPHEN 10-325 MG TABLET PO PRN (09:20)
[2017-11-21] MEDS: CARVEDILOL 12.5 MG TABLET PO SCH (09:20)
[2017-11-21 16:07] VITALS: BP 138/71
[2017-11-21] MEDS: WARFARIN SODIUM 2 MG TABLET PO SCH (17:59)
[2017-11-21 20:24] VITALS: BP 118/66
== END 2017-11-21 22:10 | disposition home or self-care (01) | DRG 441 ==
LOC: EMS 12:51 → 5N 16:52
PROVIDERS: ADMIT Internal Medicine; ATTEND Internal Medicine
DX: B17.9 Acute viral hepatitis, unspecified (principal); J96.01 Acute respiratory failure with hypoxia; I13.2 Hypertensive heart and chronic kidney disease with heart failure and with stage 5 chronic kidney disease, or end stage renal disease; I42.9 Cardiomyopathy, unspecified; I48.2 Chronic atrial fibrillation; N18.6 End stage renal disease; J43.9 Emphysema, unspecified; K57.90 Diverticulosis of intestine, part unspecified, without perforation or abscess without bleeding; D63.1 Anemia in chronic kidney disease; E03.9 Hypothyroidism, unspecified; E78.5 Hyperlipidemia, unspecified; I50.9 Heart failure, unspecified; I20.9 Angina pectoris, unspecified; J45.909 Unspecified asthma, uncomplicated; Z96.649 Presence of unspecified artificial hip joint; Z82.49 Family history of ischemic heart disease and other diseases of the circulatory system; Z86.73 Personal history of transient ischemic attack (TIA), and cerebral infarction without residual deficits; Z99.2 Dependence on renal dialysis; Z95.810 Presence of automatic (implantable) cardiac defibrillator; Z90.12 Acquired absence of left breast and nipple; Z85.3 Personal history of malignant neoplasm of breast; Z90.5 Acquired absence of kidney
CPT/HCPCS: 71250; 71275; 83735; 84100; 87081; 90935; 92523; 93005; 93306; 97110; 97112; 97116; 97163; 97166; 97530; 99285; J0885; J2930; J3490; J7030

== ENCOUNTER 2017-11-30 13:19 | Inpatient (IN) | payer MEDICARE, OTHER ==
[~2017-11-30] VITALS: Ht 172.7 cm; Wt 74.7 kg
[~2017-11-30 13:19] MED LIST changes: -ACET-784 PO; -AMPI500C68 PO; -EPOE10I SQ; +IPRNEB IH; -MUPI1OIN4 NS; -OXYC-31 PO; -PRED20 PO; +PROP10TA73 PO; -RYTH150 PO
[2017-11-30 14:02] LABS: BASOPHILS # (AUTO) 0.01 K/uL (0.00-0.20); BASOPHILS % (AUTO) 0.2 % (0.0-2.0); EOSINOPHILS # (AUTO) 0.04 K/uL (0.00-0.70); EOSINOPHILS % (AUTO) 0.81 % (1.0-6.0); HEMATOCRIT 40.5 % (36-46); HEMOGLOBIN 12.4 g/dL (12.0-16.0); LYMPHOCYTES # (AUTO) 0.6 K/uL (1.0-4.8); LYMPHOCYTES % (AUTO) 11.7 % (22.0-44.0); MEAN CORPUSCULAR HEMOGLOBIN 29.4 pg (26.0-34.0); MEAN CORPUSCULAR HGB CONC 30.6 G/dL (31.0-37.0); MEAN CORPUSCULAR VOLUME 96 fL (80-100); MONOCYTES # (AUTO) 0.8 K/uL (0.1-1.0); MONOCYTES % (AUTO) 14.3 % (2.0-9.0); NEUTROPHILS % (AUTO) 72.9 % (40.0-70.0); PLATELET COUNT (AUTO) 128 K/uL (150-450); RED BLOOD CELL COUNT(AUTO) 4.22 MIL/uL (4.00-5.20); RED CELL DISTRIBUTION WIDTH 21.5 % (11.5-14.5)
[2017-11-30 14:17] LABS: INR 2.5 (0.9-1.1); PROTHROMBIN TIME 26.6 SEC (9.4-11.6)
[2017-11-30 14:21] LABS: ANION GAP 11 mmol/L (8-16); CALCIUM, TOTAL 8.1 mg/dL (8.8-10.5); CARBON DIOXIDE 31 mmol/L (22-29); CHLORIDE 96 mmol/L (98-107); CREATININE 5.98 mg/dL (0.60-1.30); GLOMERULAR FILTR. RATE CALC 8 mL/min (>60); GLUCOSE,RANDOM 88 mg/dL (70-110); POTASSIUM 3.9 mmol/L (3.5-5.1); SODIUM SERUM 138 mmol/L (136-145); UREA NITROGEN, BLOOD 47 mg/dL (7-18)
[2017-11-30 14:26] LABS: B-TYPE NATRIURETIC PEPTIDE 1570 pg/mL (0-100)
[2017-11-30 14:36] LABS: ALANINE AMINOTRANSFERASE 27 U/L (12-78); ALBUMIN 3.3 g/dL (3.4-5.0); ALKALINE PHOSPHATASE 85 U/L (46-116); ASPARTATE AMINOTRANSFERASE 24 U/L (15-37); BILIRUBIN,TOTAL 0.7 mg/dL (0.1-1.0); CREATINE KINASE, TOTAL 25 U/L (26-192); TOTAL PROTEIN, SERUM 6.8 g/dL (6.4-8.2)
[2017-11-30] MEDS ORDERED: 0.9% SODIUM CHLORIDE 10 ML SYRINGE IVP PRN (18:30)
[2017-11-30] MEDS ORDERED: ACETAMINOPHEN 325 MG TABLET PO PRN (18:30)
[2017-11-30] MEDS ORDERED: ONDANSETRON HCL 4 MG/2 ML VIAL IVP PRN (18:30)
[2017-12-01] VITALS: BP 111/66
[2017-12-01 04:00] VITALS: BP 111/86
[2017-12-01 05:29] LABS: BASOPHILS % (AUTO) 0.3 % (0.0-2.0); EOSINOPHILS % (AUTO) 1.1 % (1.0-6.0); HEMATOCRIT 33.8 % (36-46); HEMOGLOBIN 10.9 g/dL (12.0-16.0); LYMPHOCYTES # (AUTO) 0.6 K/uL (1.0-4.8); LYMPHOCYTES % (AUTO) 13.6 % (22.0-44.0); MEAN CORPUSCULAR HEMOGLOBIN 30.2 pg (26.0-34.0); MEAN CORPUSCULAR HGB CONC 32.2 G/dL (31.0-37.0); MEAN CORPUSCULAR VOLUME 94 fL (80-100); MONOCYTES # (AUTO) 0.9 K/uL (0.1-1.0); MONOCYTES % (AUTO) 19.7 % (2.0-9.0); NEUTROPHILS # (AUTO) 3.1 K/uL (1.8-7.7); NEUTROPHILS % (AUTO) 65.3 % (40.0-70.0); PLATELET COUNT (AUTO) 125 K/uL (150-450); RED BLOOD CELL COUNT(AUTO) 3.61 MIL/uL (4.00-5.20); RED CELL DISTRIBUTION WIDTH 21.1 % (11.5-14.5)
[2017-12-01 05:42] LABS: ALBUMIN 2.6 g/dL (3.4-5.0); BILIRUBIN,TOTAL 0.5 mg/dL (0.1-1.0); CALCIUM, TOTAL 7.2 mg/dL (8.8-10.5); CREATININE 7.19 mg/dL (0.60-1.30); POTASSIUM 4.5 mmol/L (3.5-5.1); TOTAL PROTEIN, SERUM 5.6 g/dL (6.4-8.2)
[2017-12-01] MEDS ORDERED: DIGOXIN 250 MCG/ML 2 ML AMP IVP ONE (08:00)
[2017-12-01 08:32] VITALS: BP 118/93
[2017-12-01] MEDS ORDERED: ACETAMINOPHEN 325 MG TABLET PO PRN (09:15)
[2017-12-01 12:22] VITALS: BP 121/84
[2017-12-01] MEDS ORDERED: SODIUM CHLORIDE 0.9% 1,000 ML IV ONE (14:05)
[2017-12-01] MEDS: CYCLOBENZAPRINE HCL 10 MG TABLET PO PRN ×2 (16:03→23:44)
[2017-12-01] MEDS ORDERED: IPRATROPIUM BROMIDE 0.5 MG/2.5 ML NEB SOLUTION NEB PRN (16:15)
[2017-12-01] MEDS ORDERED: LACTULOSE 20 GM/30 ML SOLUTION UDCUP PO PRN (16:15)
[2017-12-01] MEDS: VITAMIN B COMP/VIT C/FOLIC ACID CAPSULE PO SCH (16:30)
[2017-12-01] MEDS: CALCIUM ACETATE 667 MG CAPSULE PO SCH (18:00)
[2017-12-01] MEDS ORDERED: LIDOCAINE HCL/PF 1% 2 ML VIAL ID PRN (18:00)
[2017-12-01 19:32] VITALS: BP 118/81
[2017-12-01] MEDS: OMEPRAZOLE 20 MG CAPSULE PO SCH (20:37)
[2017-12-01] MEDS: WARFARIN SODIUM 1 MG TABLET PO SCH (20:37)
[2017-12-01] MEDS: PROPRANOLOL HCL 10 MG TABLET PO SCH (20:37)
[2017-12-01] MEDS: TraMADol HCL 50 MG TABLET PO PRN (20:38)
[2017-12-01] MEDS: ATORVASTATIN CALCIUM 20 MG TABLET PO SCH (20:38)
[2017-12-01 23:18] VITALS: BP 112/63
[2017-12-01] MEDS: CARVEDILOL 12.5 MG TABLET PO SCH (23:44)
[2017-12-02] VITALS (7 sets, daily range): BP systolic 111–145; BP diastolic 61–80
[2017-12-02] MEDS: LEVOTHYROXINE SODIUM 150 MCG TABLET PO SCH (06:41)
[2017-12-02] MEDS: CARVEDILOL 12.5 MG TABLET PO SCH ×2 (08:00→17:54)
[2017-12-02] MEDS: CINACALCET HCL 30 MG TABLET PO SCH (08:00)
[2017-12-02] MEDS: CALCIUM ACETATE 667 MG CAPSULE PO SCH ×3 (08:00→17:53)
[2017-12-02 08:59] LABS: INR 1.5 (0.9-1.1); PROTHROMBIN TIME 15.8 SEC (9.4-11.6)
[2017-12-02] MEDS ORDERED: [UNRECOGNIZED DRUG - OTHER] PO SCH (09:00)
[2017-12-02] MEDS ORDERED: VITAMIN B COMP/VIT C/FOLIC ACID CAPSULE PO SCH (09:00)
[2017-12-02] MEDS: PROPRANOLOL HCL 10 MG TABLET PO SCH ×2 (09:00→21:07)
[2017-12-02] MEDS: OMEPRAZOLE 20 MG CAPSULE PO SCH ×2 (09:00→21:07)
[2017-12-02 09:16] LABS: ALBUMIN 2.5 g/dL (3.4-5.0); BILIRUBIN,TOTAL 0.6 mg/dL (0.1-1.0); CALCIUM, TOTAL 8.4 mg/dL (8.8-10.5); CREATININE 4.82 mg/dL (0.60-1.30); MAGNESIUM 1.3 mg/dL (1.80-2.40); PHOSPHORUS 4.6 mg/dL (2.5-4.9); POTASSIUM 4.7 mmol/L (3.5-5.1); TOTAL PROTEIN, SERUM 5.8 g/dL (6.4-8.2)
[2017-12-02 09:40] LABS: BASOPHILS % (AUTO) 0.1 % (0.0-2.0); EOSINOPHILS # (AUTO) 0.08 K/uL (0.00-0.70); EOSINOPHILS % (AUTO) 1.51 % (1.0-6.0); HEMATOCRIT 35.9 % (36-46); HEMOGLOBIN 11.3 g/dL (12.0-16.0); LYMPHOCYTES # (AUTO) 0.9 K/uL (1.0-4.8); LYMPHOCYTES % (AUTO) 16.8 % (22.0-44.0); MEAN CORPUSCULAR HEMOGLOBIN 30.5 pg (26.0-34.0); MEAN CORPUSCULAR HGB CONC 31.6 G/dL (31.0-37.0); MEAN CORPUSCULAR VOLUME 97 fL (80-100); MONOCYTES # (AUTO) 1.2 K/uL (0.1-1.0); MONOCYTES % (AUTO) 24.2 % (2.0-9.0); NEUTROPHILS % (AUTO) 57.5 % (40.0-70.0); PLATELET COUNT (AUTO) 92 K/uL (150-450); RED BLOOD CELL COUNT(AUTO) 3.72 MIL/uL (4.00-5.20)
[2017-12-02] MEDS ORDERED: BENZOCAINE 20% 50 MCG/SPRAY 57 GM ONE (12:42)
[2017-12-02] MEDS ORDERED: FentaNYL CITRATE-PF 100 MCG/2 ML VIAL ONE (13:14)
[2017-12-02] MEDS ORDERED: MIDAZOLAM HCL 2 MG/2 ML VIAL ONE (13:15)
[2017-12-02] MEDS ORDERED: MIDAZOLAM HCL 2 MG/2 ML VIAL IVP ONE (13:30)
[2017-12-02] MEDS ORDERED: BENZOCAINE 20% 11.9 GM GEL TP ONE (13:30)
[2017-12-02] MEDS ORDERED: FentaNYL CITRATE-PF 100 MCG/2 ML VIAL IVP ONE (13:30)
[2017-12-02] MEDS ORDERED: LIDOCAINE HCL/PF 1% 2 ML VIAL IM ONE (17:34)
[2017-12-02] MEDS: VITAMIN B COMP/VIT C/FOLIC ACID CAPSULE PO SCH (17:53)
[2017-12-02] MEDS: MONTELUKAST SODIUM 10 MG TABLET PO SCH (17:53)
[2017-12-02] MEDS: PredniSONE 10 MG TABLET PO SCH (17:54)
[2017-12-02] MEDS: ATORVASTATIN CALCIUM 20 MG TABLET PO SCH (21:07)
[2017-12-02] MEDS: WARFARIN SODIUM 1 MG TABLET PO SCH (21:07)
[2017-12-03] VITALS: BP 109/60
[2017-12-03] MEDS: CARVEDILOL 12.5 MG TABLET PO SCH (00:29)
[2017-12-03 05:00] VITALS: BP 104/61
[2017-12-03] MEDS: LEVOTHYROXINE SODIUM 150 MCG TABLET PO SCH (06:01)
[2017-12-03 06:36] LABS: EOSINOPHILS % (AUTO) 0.9 % (1.0-6.0); HEMATOCRIT 32.8 % (36-46); HEMOGLOBIN 10.6 g/dL (12.0-16.0); LYMPHOCYTES # (AUTO) 0.6 K/uL (1.0-4.8); LYMPHOCYTES % (AUTO) 11.8 % (22.0-44.0); MEAN CORPUSCULAR HEMOGLOBIN 30.3 pg (26.0-34.0); MEAN CORPUSCULAR HGB CONC 32.4 G/dL (31.0-37.0); MEAN CORPUSCULAR VOLUME 94 fL (80-100); MONOCYTES # (AUTO) 0.6 K/uL (0.1-1.0); MONOCYTES % (AUTO) 12.5 % (2.0-9.0); NEUTROPHILS # (AUTO) 3.6 K/uL (1.8-7.7); NEUTROPHILS % (AUTO) 74.8 % (40.0-70.0); PLATELET COUNT (AUTO) 104 K/uL (150-450); RED BLOOD CELL COUNT(AUTO) 3.51 MIL/uL (4.00-5.20); RED CELL DISTRIBUTION WIDTH 20.7 % (11.5-14.5)
[2017-12-03 07:08] LABS: ALBUMIN 2.5 g/dL (3.4-5.0); BILIRUBIN,TOTAL 0.5 mg/dL (0.1-1.0); CALCIUM, TOTAL 7.7 mg/dL (8.8-10.5); CREATININE 6.64 mg/dL (0.60-1.30); MAGNESIUM 1.4 mg/dL (1.80-2.40); POTASSIUM 5.2 mmol/L (3.5-5.1); TOTAL PROTEIN, SERUM 5.8 g/dL (6.4-8.2)
[2017-12-03 07:53] VITALS: BP 102/53
[2017-12-03] MEDS: CINACALCET HCL 30 MG TABLET PO SCH (08:00)
[2017-12-03] MEDS ORDERED: SODIUM CHLORIDE 0.9% 1,000 ML IV ONE (08:05)
[2017-12-03] MEDS ORDERED: LIDOCAINE HCL/PF 1% 2 ML VIAL ID PRN (08:15)
[2017-12-03] MEDS: PROPRANOLOL HCL 10 MG TABLET PO SCH ×2 (09:00→21:00)
[2017-12-03 09:20] LABS: INR 1.3 (0.9-1.1); PROTHROMBIN TIME 13.9 SEC (9.4-11.6)
[2017-12-03 11:35] VITALS: BP 132/75
[2017-12-03] MEDS ORDERED: MAGNESIUM OXIDE 400 MG TABLET PO ONE (11:45)
[2017-12-03] MEDS: CALCIUM ACETATE 667 MG CAPSULE PO SCH ×3 (12:00→18:20)
[2017-12-03] MEDS: PredniSONE 10 MG TABLET PO SCH (14:13)
[2017-12-03] MEDS: OMEPRAZOLE 20 MG CAPSULE PO SCH ×2 (14:13→21:10)
[2017-12-03] MEDS: CARVEDILOL 3.125 MG TABLET PO SCH (14:13)
[2017-12-03] MEDS: MONTELUKAST SODIUM 10 MG TABLET PO SCH (14:14)
[2017-12-03] MEDS: VITAMIN B COMP/VIT C/FOLIC ACID CAPSULE PO SCH (14:14)
[2017-12-03] MEDS ORDERED: DIGOXIN 250 MCG/ML 2 ML AMP IVP ONE (15:30)
[2017-12-03] MEDS: CYCLOBENZAPRINE HCL 10 MG TABLET PO PRN (16:14)
[2017-12-03 16:40] VITALS: BP 127/71
[2017-12-03 19:52] VITALS: BP 107/59
[2017-12-03] MEDS: ATORVASTATIN CALCIUM 20 MG TABLET PO SCH (21:10)
[2017-12-03] MEDS: BUDESONIDE 0.5 MG/2 ML NEB SOLUTION NEB SCH (21:46)
[2017-12-04] VITALS (7 sets, daily range): BP systolic 113–133; BP diastolic 65–77
[2017-12-04] MEDS: LEVOTHYROXINE SODIUM 150 MCG TABLET PO SCH (06:06)
[2017-12-04 07:17] LABS: EOSINOPHILS # (AUTO) 0.03 K/uL (0.00-0.70); EOSINOPHILS % (AUTO) 0.49 % (1.0-6.0); HEMATOCRIT 32.5 % (36-46); LYMPHOCYTES # (AUTO) 0.7 K/uL (1.0-4.8); LYMPHOCYTES % (AUTO) 11.1 % (22.0-44.0); MEAN CORPUSCULAR HEMOGLOBIN 29.8 pg (26.0-34.0); MEAN CORPUSCULAR HGB CONC 30.9 G/dL (31.0-37.0); MEAN CORPUSCULAR VOLUME 97 fL (80-100); MONOCYTES # (AUTO) 0.8 K/uL (0.1-1.0); MONOCYTES % (AUTO) 13.3 % (2.0-9.0); NEUTROPHILS # (AUTO) 4.6 K/uL (1.8-7.7); NEUTROPHILS % (AUTO) 75.1 % (40.0-70.0); PLATELET COUNT (AUTO) 95 K/uL (150-450); RED BLOOD CELL COUNT(AUTO) 3.36 MIL/uL (4.00-5.20); RED CELL DISTRIBUTION WIDTH 20.8 % (11.5-14.5)
[2017-12-04 07:41] LABS: ALBUMIN 2.6 g/dL (3.4-5.0); BILIRUBIN,TOTAL 0.5 mg/dL (0.1-1.0); CALCIUM, TOTAL 8.2 mg/dL (8.8-10.5); CREATININE 4.43 mg/dL (0.60-1.30); MAGNESIUM 1.4 mg/dL (1.80-2.40); POTASSIUM 4.7 mmol/L (3.5-5.1); TOTAL PROTEIN, SERUM 5.8 g/dL (6.4-8.2)
[2017-12-04] MEDS: BUDESONIDE 0.5 MG/2 ML NEB SOLUTION NEB SCH ×2 (07:45→19:16)
[2017-12-04] MEDS: CALCIUM ACETATE 667 MG CAPSULE PO SCH ×3 (08:55→18:05)
[2017-12-04] MEDS: PredniSONE 10 MG TABLET PO SCH (08:55)
[2017-12-04] MEDS: CARVEDILOL 3.125 MG TABLET PO SCH ×3 (08:57→16:09)
[2017-12-04] MEDS: VITAMIN B COMP/VIT C/FOLIC ACID CAPSULE PO SCH (08:57)
[2017-12-04] MEDS: CINACALCET HCL 30 MG TABLET PO SCH (08:58)
[2017-12-04] MEDS: SACUBITRIL/VALSARTAN 24-26 MG TABLET PO SCH ×3 (09:00→20:48)
[2017-12-04] MEDS: OMEPRAZOLE 20 MG CAPSULE PO SCH ×2 (09:01→20:47)
[2017-12-04] MEDS: MONTELUKAST SODIUM 10 MG TABLET PO SCH (09:01)
[2017-12-04 09:45] LABS: PLATELET MORPHOLOGY COMMENT DECREASED
[2017-12-04] MEDS ORDERED: MAGNESIUM SULFATE 2 GM in DEXTROSE 5%-WATER 50 ML IV ONE (14:45)
[2017-12-04] MEDS ORDERED: SODIUM CHLORIDE 0.9% 250 ML IV ONE (16:13)
[2017-12-04] MEDS: ATORVASTATIN CALCIUM 20 MG TABLET PO SCH (20:47)
[2017-12-05] MEDS: CYCLOBENZAPRINE HCL 10 MG TABLET PO PRN ×2 (00:01→17:06)
[2017-12-05] MEDS: CARVEDILOL 3.125 MG TABLET PO SCH ×4 (00:02→23:40)
[2017-12-05] MEDS: LEVOTHYROXINE SODIUM 150 MCG TABLET PO SCH (05:42)
[2017-12-05 05:52] VITALS: BP 105/70
[2017-12-05 07:21] VITALS: BP 116/64
[2017-12-05 07:38] LABS: EOSINOPHILS % (AUTO) 0.6 % (1.0-6.0); HEMATOCRIT 32.4 % (36-46); HEMOGLOBIN 10.2 g/dL (12.0-16.0); LYMPHOCYTES # (AUTO) 0.8 K/uL (1.0-4.8); LYMPHOCYTES % (AUTO) 14.3 % (22.0-44.0); MEAN CORPUSCULAR HGB CONC 31.5 G/dL (31.0-37.0); MEAN CORPUSCULAR VOLUME 95 fL (80-100); MONOCYTES # (AUTO) 0.8 K/uL (0.1-1.0); MONOCYTES % (AUTO) 14.4 % (2.0-9.0); NEUTROPHILS # (AUTO) 4.1 K/uL (1.8-7.7); NEUTROPHILS % (AUTO) 70.7 % (40.0-70.0); PLATELET COUNT (AUTO) 109 K/uL (150-450); RED BLOOD CELL COUNT(AUTO) 3.41 MIL/uL (4.00-5.20); RED CELL DISTRIBUTION WIDTH 19.7 % (11.5-14.5)
[2017-12-05] MEDS: BUDESONIDE 0.5 MG/2 ML NEB SOLUTION NEB SCH ×2 (07:57→19:22)
[2017-12-05] MEDS: VITAMIN B COMP/VIT C/FOLIC ACID CAPSULE PO SCH (08:13)
[2017-12-05] MEDS: MONTELUKAST SODIUM 10 MG TABLET PO SCH (08:13)
[2017-12-05] MEDS: OMEPRAZOLE 20 MG CAPSULE PO SCH ×2 (08:13→19:59)
[2017-12-05] MEDS: SACUBITRIL/VALSARTAN 24-26 MG TABLET PO SCH ×2 (08:14→19:59)
[2017-12-05] MEDS: CINACALCET HCL 30 MG TABLET PO SCH (08:14)
[2017-12-05] MEDS: CALCIUM ACETATE 667 MG CAPSULE PO SCH ×3 (08:14→18:10)
[2017-12-05] MEDS: PredniSONE 10 MG TABLET PO SCH (08:14)
[2017-12-05 08:31] LABS: ALBUMIN 2.6 g/dL (3.4-5.0); BILIRUBIN,TOTAL 0.7 mg/dL (0.1-1.0); CALCIUM, TOTAL 7.9 mg/dL (8.8-10.5); CREATININE 6.21 mg/dL (0.60-1.30); MAGNESIUM 1.7 mg/dL (1.80-2.40); POTASSIUM 4.8 mmol/L (3.5-5.1); TOTAL PROTEIN, SERUM 5.7 g/dL (6.4-8.2)
[2017-12-05 11:23] VITALS: BP 107/69
[2017-12-05 15:34] VITALS: BP 117/70
[2017-12-05] MEDS: DiphenhydrAMINE HCL 25 MG CAPSULE PO SCH ×2 (18:10→23:40)
[2017-12-05] MEDS: MethylPREDNISolone SOD SUCC 125 MG/2 ML VIAL IVP SCH ×2 (18:10→23:41)
[2017-12-05 19:11] VITALS: BP 123/65
[2017-12-05] MEDS: ATORVASTATIN CALCIUM 20 MG TABLET PO SCH (19:59)
[2017-12-05 23:40] VITALS: BP 138/77
[2017-12-06] VITALS (16 sets, daily range): BP systolic 110–157; BP diastolic 64–107
[2017-12-06] MEDS: LEVOTHYROXINE SODIUM 150 MCG TABLET PO SCH (05:14)
[2017-12-06] MEDS: DiphenhydrAMINE HCL 25 MG CAPSULE PO SCH ×2 (05:25→12:34)
[2017-12-06] MEDS: MethylPREDNISolone SOD SUCC 125 MG/2 ML VIAL IVP SCH ×2 (05:26→12:35)
[2017-12-06 07:35] LABS: INR 1.1 (0.9-1.1)
[2017-12-06] MEDS ORDERED: ALPRAZolam 0.25 MG TABLET PO ONE (08:00)
[2017-12-06] MEDS: CALCIUM ACETATE 667 MG CAPSULE PO SCH ×3 (08:22→18:00)
[2017-12-06] MEDS: VITAMIN B COMP/VIT C/FOLIC ACID CAPSULE PO SCH (08:22)
[2017-12-06] MEDS: CINACALCET HCL 30 MG TABLET PO SCH (08:23)
[2017-12-06] MEDS: SACUBITRIL/VALSARTAN 24-26 MG TABLET PO SCH ×2 (08:23→20:55)
[2017-12-06] MEDS: PredniSONE 10 MG TABLET PO SCH (08:23)
[2017-12-06] MEDS: MONTELUKAST SODIUM 10 MG TABLET PO SCH (08:24)
[2017-12-06] MEDS: OMEPRAZOLE 20 MG CAPSULE PO SCH ×2 (08:26→20:55)
[2017-12-06] MEDS: BUDESONIDE 0.5 MG/2 ML NEB SOLUTION NEB SCH ×2 (09:56→21:14)
[2017-12-06] MEDS: CARVEDILOL 3.125 MG TABLET PO SCH ×2 (11:26→16:00)
[2017-12-06] MEDS ORDERED: IOHEXOL 300 MG/ML 100 ML VIAL ONE (13:31)
[2017-12-06] MEDS ORDERED: LIDOCAINE HCL/PF 1% 30 ML VIAL ONE (13:31)
[2017-12-06] MEDS ORDERED: SODIUM BICARBONATE 50 MEQ/50 ML VIAL ONE (13:31)
[2017-12-06] MEDS ORDERED: HEPARIN SODIUM 1000 UNITS/NS 1,000 ML ONE (13:31)
[2017-12-06] MEDS ORDERED: NITROGLYCERIN 50 MG/D5% WATER 0 ML ONE (13:44)
[2017-12-06] MEDS ORDERED: VERAPAMIL HCL 2.5 MG/ML 2 ML VIAL ONE (13:44)
[2017-12-06] MEDS ORDERED: MIDAZOLAM HCL 2 MG/2 ML VIAL ONE (13:48)
[2017-12-06] MEDS ORDERED: FentaNYL CITRATE-PF 100 MCG/2 ML VIAL ONE (13:48)
[2017-12-06] MEDS ORDERED: HEPARIN SODIUM 1000 UNITS/NS 1,000 ML IARTER ONE (13:53)
[2017-12-06] MEDS ORDERED: IOHEXOL 300 MG/ML 150 ML VIAL IARTER ONE (14:00)
[2017-12-06] MEDS ORDERED: LIDOCAINE 1% 30 ML/SOD BICARB 8.4% 4 ML SQ ONE (14:00)
[2017-12-06] MEDS ORDERED: MIDAZOLAM HCL 2 MG/2 ML VIAL IVP ONE (14:00)
[2017-12-06] MEDS ORDERED: FentaNYL CITRATE-PF 100 MCG/2 ML VIAL IVP ONE (14:00)
[2017-12-06] MEDS ORDERED: 0.9% SODIUM CHLORIDE 5 ML NEB SOLUTION NEB ONE (20:18)
[2017-12-06] MEDS: ATORVASTATIN CALCIUM 20 MG TABLET PO SCH (20:55)
[2017-12-06] MEDS: CYCLOBENZAPRINE HCL 10 MG TABLET PO PRN (20:55)
[2017-12-07] MEDS: CARVEDILOL 3.125 MG TABLET PO SCH ×3 (00:58→16:00)
[2017-12-07] MEDS: TraMADol HCL 50 MG TABLET PO PRN (01:47)
[2017-12-07 04:07] VITALS: BP 107/60
[2017-12-07] MEDS: LEVOTHYROXINE SODIUM 150 MCG TABLET PO SCH (06:01)
[2017-12-07 07:45] VITALS: BP 93/52
[2017-12-07] MEDS: OMEPRAZOLE 20 MG CAPSULE PO SCH ×2 (08:24→20:56)
[2017-12-07] MEDS: CINACALCET HCL 30 MG TABLET PO SCH (08:24)
[2017-12-07] MEDS: SACUBITRIL/VALSARTAN 24-26 MG TABLET PO SCH (08:24)
[2017-12-07] MEDS: CALCIUM ACETATE 667 MG CAPSULE PO SCH ×3 (08:25→17:47)
[2017-12-07] MEDS: CYCLOBENZAPRINE HCL 10 MG TABLET PO PRN (08:25)
[2017-12-07] MEDS: MONTELUKAST SODIUM 10 MG TABLET PO SCH (08:25)
[2017-12-07] MEDS: VITAMIN B COMP/VIT C/FOLIC ACID CAPSULE PO SCH (08:25)
[2017-12-07] MEDS: PredniSONE 10 MG TABLET PO SCH (08:26)
[2017-12-07 08:30] LABS: EOSINOPHILS % (AUTO) 0 % (1.0-6.0); HEMOGLOBIN 11.8 g/dL (12.0-16.0); LYMPHOCYTES # (AUTO) 0.5 K/uL (1.0-4.8); LYMPHOCYTES % (AUTO) 6.1 % (22.0-44.0); MEAN CORPUSCULAR HEMOGLOBIN 29.9 pg (26.0-34.0); MEAN CORPUSCULAR HGB CONC 31.8 G/dL (31.0-37.0); MEAN CORPUSCULAR VOLUME 94 fL (80-100); MONOCYTES % (AUTO) 11.6 % (2.0-9.0); NEUTROPHILS # (AUTO) 6.7 K/uL (1.8-7.7); NEUTROPHILS % (AUTO) 82.3 % (40.0-70.0); PLATELET COUNT (AUTO) 110 K/uL (150-450); RED BLOOD CELL COUNT(AUTO) 3.94 MIL/uL (4.00-5.20); RED CELL DISTRIBUTION WIDTH 19.1 % (11.5-14.5)
[2017-12-07 08:40] LABS: ALBUMIN 2.7 g/dL (3.4-5.0); BILIRUBIN,TOTAL 0.6 mg/dL (0.1-1.0); CALCIUM, TOTAL 8.2 mg/dL (8.8-10.5); CREATININE 5.6 mg/dL (0.60-1.30); MAGNESIUM 1.6 mg/dL (1.80-2.40); POTASSIUM 4.8 mmol/L (3.5-5.1); TOTAL PROTEIN, SERUM 6.1 g/dL (6.4-8.2)
[2017-12-07] MEDS: BUDESONIDE 0.5 MG/2 ML NEB SOLUTION NEB SCH ×2 (09:42→21:13)
[2017-12-07 11:25] VITALS: BP 92/53
[2017-12-07] MEDS ORDERED: BUDE0.5A3 NEB (13:25)
[2017-12-07] MEDS ORDERED: ACET-784 PO (13:25)
[2017-12-07 16:08] VITALS: BP 90/51
[2017-12-07] MEDS ORDERED: HEPARIN SODIUM,PORCINE 1,000 UNITS/ML VIAL IVP ONE (17:56)
[2017-12-07] MEDS ORDERED: METOPROLOL SUCCINATE 25 MG ER TABLET PO SCH (21:00)
[2017-12-07] MEDS ORDERED: VALSARTAN 40 MG TABLET PO SCH (21:00)
== END 2017-12-07 21:30 | DRG 286 ==
LOC: EMS 13:23 → AHU 22:35 → 5N 12-01 04:55 → AHU 12-01 10:03 → 5S 12-01 16:25
PROVIDERS: ADMIT Internal Medicine; ATTEND Internal Medicine
PROC: 5A1D70Z Performance of Urinary Filtration, Intermittent, Less than 6 Hours Per Day (ICD-10-PCS; 2017-12-01)
PROC: 5A1D70Z Performance of Urinary Filtration, Intermittent, Less than 6 Hours Per Day (ICD-10-PCS; 2017-12-03)
PROC: 4A023N7 Measurement of Cardiac Sampling and Pressure, Left Heart, Percutaneous Approach (ICD-10-PCS; principal; 2017-12-06)
PROC: B2111ZZ Fluoroscopy of Multiple Coronary Arteries using Low Osmolar Contrast (ICD-10-PCS; 2017-12-06)
PROC: B2151ZZ Fluoroscopy of Left Heart using Low Osmolar Contrast (ICD-10-PCS; 2017-12-06)
PROC: 5A1D70Z Performance of Urinary Filtration, Intermittent, Less than 6 Hours Per Day (ICD-10-PCS; 2017-12-06)
DX: I13.2 Hypertensive heart and chronic kidney disease with heart failure and with stage 5 chronic kidney disease, or end stage renal disease (principal); J96.21 Acute and chronic respiratory failure with hypoxia; K57.93 Diverticulitis of intestine, part unspecified, without perforation or abscess with bleeding; N18.6 End stage renal disease; I42.9 Cardiomyopathy, unspecified; J44.1 Chronic obstructive pulmonary disease with (acute) exacerbation; I48.2 Chronic atrial fibrillation; I50.41 Acute combined systolic (congestive) and diastolic (congestive) heart failure; B17.9 Acute viral hepatitis, unspecified; I48.91 Unspecified atrial fibrillation; E03.9 Hypothyroidism, unspecified; D64.9 Anemia, unspecified; I20.9 Angina pectoris, unspecified; Z96.649 Presence of unspecified artificial hip joint; D63.8 Anemia in other chronic diseases classified elsewhere; E05.90 Thyrotoxicosis, unspecified without thyrotoxic crisis or storm; E78.00 Pure hypercholesterolemia, unspecified; Z83.3 Family history of diabetes mellitus; Z82.49 Family history of ischemic heart disease and other diseases of the circulatory system; Z79.899 Other long term (current) drug therapy; Z85.3 Personal history of malignant neoplasm of breast; Z90.12 Acquired absence of left breast and nipple; Z95.810 Presence of automatic (implantable) cardiac defibrillator; Z99.2 Dependence on renal dialysis; Z91.041 Radiographic dye allergy status; Z86.73 Personal history of transient ischemic attack (TIA), and cerebral infarction without residual deficits; Z99.81 Dependence on supplemental oxygen; Z91.018 Allergy to other foods; Z90.5 Acquired absence of kidney; Z90.49 Acquired absence of other specified parts of digestive tract
CPT/HCPCS: 83735; 84100; 87081; 90935; 93005; 93308; 93312; 94640; 97163; 99285; J1160; J1644; J2250; J2930; J3010; J3475; J3490; J7030; J7050; J7060; Q9967

== ENCOUNTER → 2018-01-18 | Outpatient (CLI) | payer MEDICARE ==
[~2018-01-18] MED LIST changes: +ACET325C PO; +ASPI81 PO; +BUDE0.5A3 NEB; +CLOP75 PO; -IPRNEB IH; -OMEP20 PO; -PRED10 PO
[2018-01-18 10:57] VITALS: BP 108/68
== END | disposition home or self-care (01) ==
LOC: SRCNTR 10:50
PROVIDERS: ATTEND Internal Medicine Critical Care Medicine
DX: J44.1 Chronic obstructive pulmonary disease with (acute) exacerbation (principal); I13.0 Hypertensive heart and chronic kidney disease with heart failure and stage 1 through stage 4 chronic kidney disease, or unspecified chronic kidney disease; N18.6 End stage renal disease; I50.9 Heart failure, unspecified; E03.9 Hypothyroidism, unspecified; I48.91 Unspecified atrial fibrillation; Z99.2 Dependence on renal dialysis
CPT/HCPCS: G0463

== ENCOUNTER → 2018-03-15 | Outpatient (CLI) | payer MEDICARE ==
[2018-03-15 12:58] VITALS: BP 147/76
== END | disposition home or self-care (01) ==
LOC: SRCNTR 11:59
PROVIDERS: ATTEND Internal Medicine Critical Care Medicine
DX: J44.1 Chronic obstructive pulmonary disease with (acute) exacerbation (principal); I13.2 Hypertensive heart and chronic kidney disease with heart failure and with stage 5 chronic kidney disease, or end stage renal disease; I50.9 Heart failure, unspecified; N18.6 End stage renal disease; I48.91 Unspecified atrial fibrillation; E03.9 Hypothyroidism, unspecified; Z85.3 Personal history of malignant neoplasm of breast; Z90.12 Acquired absence of left breast and nipple
CPT/HCPCS: G0463

== ENCOUNTER → 2018-03-22 | Outpatient (CLI) | payer MEDICARE ==
[~2018-03-22] VITALS: Ht 172.7 cm; Wt 66.0 kg
[~2018-03-22] MED LIST changes: +AMIO200T44 PO; +DIGO125T87 PO; +FOLI1CAP2 PO; +LEVO125 PO; +METO25XL PO; +PANT40TA25 PO; +PERCT PO; +PRIM50 PO; +PROP80SR PO; +SENN-175 PO; +[UNRECOGNIZED DRUG - CODE] PO
[2018-03-22 11:45] VITALS: BP 142/85
== END | disposition home or self-care (01) ==
LOC: SRCNTR 11:26
PROVIDERS: ATTEND Internal Medicine Clinical Cardiac Electrophysiology
DX: Z45.02 Encounter for adjustment and management of automatic implantable cardiac defibrillator (principal); I11.0 Hypertensive heart disease with heart failure; I50.9 Heart failure, unspecified; I48.91 Unspecified atrial fibrillation; J44.9 Chronic obstructive pulmonary disease, unspecified; F41.9 Anxiety disorder, unspecified; E03.9 Hypothyroidism, unspecified; N17.9 Acute kidney failure, unspecified; Z79.82 Long term (current) use of aspirin; Z86.73 Personal history of transient ischemic attack (TIA), and cerebral infarction without residual deficits; Z90.49 Acquired absence of other specified parts of digestive tract
CPT/HCPCS: G0463

== ENCOUNTER 2018-04-07 08:13 | Day surgery (SDC) | payer MEDICARE, OTHER ==
[~2018-04-07] VITALS: Ht 165.1 cm; Wt 64.5 kg
[~2018-04-07 08:13] MED LIST changes: -AMIO200T44 PO; -DIGO125T87 PO; -FOLI1CAP2 PO; -LEVO125 PO; -METO25XL PO; -PANT40TA25 PO; -PERCT PO; -PRIM50 PO; -PROP80SR PO; -SENN-175 PO; -[UNRECOGNIZED DRUG - CODE] PO
[2018-04-07] MEDS ORDERED: FentaNYL CITRATE-PF 100 MCG/2 ML VIAL IVP ONE (08:14)
[2018-04-07] MEDS ORDERED: MIDAZOLAM HCL 2 MG/2 ML VIAL IVP ONE (08:14)
[2018-04-07] MEDS ORDERED: 0.9% SODIUM CHLORIDE 10 ML VIAL IVP ONE (08:14)
[2018-04-07] MEDS ORDERED: SODIUM CHLORIDE 0.9% 1,000 ML IV ONE ×2 (08:24→08:30)
[2018-04-07] MEDS ORDERED: SENN-175 PO (08:49)
[2018-04-07] MEDS ORDERED: [UNRECOGNIZED DRUG - CODE] PO (08:49)
[2018-04-07] MEDS ORDERED: DIGO125T87 PO (08:49)
[2018-04-07] MEDS ORDERED: AMIO200T44 PO (08:49)
[2018-04-07] MEDS ORDERED: PROP80SR PO (08:49)
[2018-04-07] MEDS ORDERED: LEVO125 PO (08:49)
[2018-04-07] MEDS ORDERED: PERCT PO (08:49)
[2018-04-07] MEDS ORDERED: PRIM50 PO (08:49)
[2018-04-07] MEDS ORDERED: PANT40TA25 PO (08:49)
[2018-04-07 08:58] LABS: BASOPHILS % (AUTO) 1.6 % (0.0-2.0); EOSINOPHILS % (AUTO) 1.6 % (1.0-6.0); HEMATOCRIT 34.2 % (36-46); HEMOGLOBIN 10.8 g/dL (12.0-16.0); LYMPHOCYTES # (AUTO) 0.6 K/uL (1.0-4.8); LYMPHOCYTES % (AUTO) 16.2 % (22.0-44.0); MEAN CORPUSCULAR HEMOGLOBIN 29.2 pg (26.0-34.0); MEAN CORPUSCULAR HGB CONC 31.5 G/dL (31.0-37.0); MEAN CORPUSCULAR VOLUME 93 fL (80-100); MONOCYTES # (AUTO) 0.9 K/uL (0.1-1.0); MONOCYTES % (AUTO) 23.2 % (2.0-9.0); NEUTROPHILS # (AUTO) 2.1 K/uL (1.8-7.7); NEUTROPHILS % (AUTO) 57.4 % (40.0-70.0); PLATELET COUNT (AUTO) 138 K/uL (150-450); RED BLOOD CELL COUNT(AUTO) 3.69 MIL/uL (4.00-5.20); RED CELL DISTRIBUTION WIDTH 19.3 % (11.5-14.5)
[2018-04-07 09:07] LABS: INR 1.1 (0.9-1.1); PROTHROMBIN TIME 11.7 SEC (9.4-11.6)
[2018-04-07 09:08] LABS: CALCIUM, TOTAL 7.9 mg/dL (8.8-10.5); CREATININE 4.85 mg/dL (0.60-1.30); POTASSIUM 4.4 mmol/L (3.5-5.1)
[2018-04-07 09:14] LABS: ALBUMIN 3.5 g/dL (3.4-5.0); BILIRUBIN,TOTAL 0.7 mg/dL (0.1-1.0); MAGNESIUM 1.9 mg/dL (1.80-2.40); TOTAL PROTEIN, SERUM 6.8 g/dL (6.4-8.2)
[2018-04-07] MEDS ORDERED: LIDOCAINE HCL/PF 1% 30 ML VIAL ONE ×2 (10:06→11:10)
[2018-04-07] MEDS ORDERED: SODIUM BICARBONATE 50 MEQ/50 ML VIAL ONE (10:06)
[2018-04-07 10:34] VITALS: BP 171/89
[2018-04-07] MEDS ORDERED: BUPIVACAINE LIPOSOME/PF 1.3%-13.3MG/ML SUSPENSION 10 ML VIAL INJ ONE (11:15)
[2018-04-07] MEDS ORDERED: LIDOCAINE 1% 30 ML/SOD BICARB 8.4% 4 ML SQ ONE (11:15)
[2018-04-07 11:45] VITALS: BP 147/75
[2018-04-07] MEDS ORDERED: HYDROCODONE/ACETAMINOPHEN 10-325 MG TABLET PO ONE (12:45)
[2018-04-07] MEDS ORDERED: CeFAZolin 1 GM/DEXTROSE 50 ML IV ONE ×2 (14:13→15:00)
== END 2018-04-07 16:05 | disposition home or self-care (01) ==
LOC: SDS 08:13
PROVIDERS: ATTEND Internal Medicine Clinical Cardiac Electrophysiology
DX: Z45.02 Encounter for adjustment and management of automatic implantable cardiac defibrillator (principal); I13.2 Hypertensive heart and chronic kidney disease with heart failure and with stage 5 chronic kidney disease, or end stage renal disease; N18.6 End stage renal disease; I50.9 Heart failure, unspecified; I48.91 Unspecified atrial fibrillation; J45.998 Other asthma; J44.9 Chronic obstructive pulmonary disease, unspecified; E03.9 Hypothyroidism, unspecified; F41.9 Anxiety disorder, unspecified; K21.9 Gastro-esophageal reflux disease without esophagitis; M19.90 Unspecified osteoarthritis, unspecified site; I25.10 Atherosclerotic heart disease of native coronary artery without angina pectoris; Z86.73 Personal history of transient ischemic attack (TIA), and cerebral infarction without residual deficits; Z95.810 Presence of automatic (implantable) cardiac defibrillator; Z99.2 Dependence on renal dialysis; Z90.12 Acquired absence of left breast and nipple; Z79.82 Long term (current) use of aspirin; Z85.3 Personal history of malignant neoplasm of breast; Z79.01 Long term (current) use of anticoagulants; Z91.041 Radiographic dye allergy status; Z91.018 Allergy to other foods; Z96.651 Presence of right artificial knee joint; Z90.49 Acquired absence of other specified parts of digestive tract; Z96.643 Presence of artificial hip joint, bilateral; Z79.899 Other long term (current) drug therapy
CPT/HCPCS: 33263; 36415; 80053; 83735; 85025; 85610; 85730; 88300; 93005; 93640; C1721; J0690; J2250; J3010; J3490 ×2; J7030; 33240

== ENCOUNTER 2018-04-18 11:06 | Inpatient (IN) | payer MEDICARE, OTHER ==
[~2018-04-18] VITALS: Ht 170.2 cm; Wt 67.9 kg
[~2018-04-18 11:06] MED LIST changes: -ACET325C PO; +AMIO200T44 PO; -ASPI81 PO; -BUDE0.5A3 NEB; -CARV12 PO; -CYCL10 PO; +DIGO125T87 PO; -FOLI1TAB85 PO; -LACT30L PO; +LEVO125 PO; -LEVO150 PO; +PANT40TA25 PO; +PERCT PO; -PHOSLOC PO; +PRIM50 PO; -PROP10TA73 PO; +PROP80SR PO; +SENN-175 PO; -TRAM50TA4 PO; +[UNRECOGNIZED DRUG - CODE] PO
[2018-04-18] MEDS ORDERED: FOLI1CAP2 PO (11:40)
[2018-04-18] MEDS ORDERED: METO25XL PO (11:40)
[2018-04-18 12:27] LABS: BASOPHILS % (AUTO) 1.2 % (0.0-2.0); EOSINOPHILS % (AUTO) 1.6 % (1.0-6.0); HEMATOCRIT 37.8 % (36-46); LYMPHOCYTES # (AUTO) 0.7 K/uL (1.0-4.8); LYMPHOCYTES % (AUTO) 12.4 % (22.0-44.0); MEAN CORPUSCULAR HEMOGLOBIN 29.6 pg (26.0-34.0); MEAN CORPUSCULAR HGB CONC 31.8 G/dL (31.0-37.0); MEAN CORPUSCULAR VOLUME 93 fL (80-100); MONOCYTES # (AUTO) 0.7 K/uL (0.1-1.0); MONOCYTES % (AUTO) 13.2 % (2.0-9.0); NEUTROPHILS # (AUTO) 3.9 K/uL (1.8-7.7); NEUTROPHILS % (AUTO) 71.6 % (40.0-70.0); PLATELET COUNT (AUTO) 145 K/uL (150-450); RED BLOOD CELL COUNT(AUTO) 4.05 MIL/uL (4.00-5.20); RED CELL DISTRIBUTION WIDTH 20.3 % (11.5-14.5)
[2018-04-18 12:39] LABS: ANION GAP 13 mmol/L (8-16); CALCIUM, TOTAL 7.3 mg/dL (8.8-10.5); CARBON DIOXIDE 28 mmol/L (22-29); CHLORIDE 94 mmol/L (98-107); CREATININE 7.21 mg/dL (0.60-1.30); GLOMERULAR FILTR. RATE CALC 7 mL/min (>60); GLUCOSE,RANDOM 101 mg/dL (70-110); SODIUM SERUM 135 mmol/L (136-145); UREA NITROGEN, BLOOD 42 mg/dL (7-18)
[2018-04-18 12:55] LABS: B-TYPE NATRIURETIC PEPTIDE > 5000 pg/mL (0-100)
[2018-04-18 12:58] LABS: ALANINE AMINOTRANSFERASE 11 U/L (12-78); ALBUMIN 3.7 g/dL (3.4-5.0); ALKALINE PHOSPHATASE 105 U/L (46-116); ASPARTATE AMINOTRANSFERASE 23 U/L (15-37); BILIRUBIN,TOTAL 0.8 mg/dL (0.1-1.0); CREATINE KINASE, TOTAL 27 U/L (26-192)
[2018-04-18 12:59] LABS: DIGOXIN 3.03 ng/mL (0.90-2.00)
[2018-04-18] MEDS ORDERED: ONDANSETRON HCL 4 MG/2 ML VIAL IVP PRN (14:15)
[2018-04-18] MEDS ORDERED: ACETAMINOPHEN 325 MG TABLET PO PRN ×2 (14:15→21:00)
[2018-04-18] MEDS ORDERED: 0.9% SODIUM CHLORIDE 10 ML SYRINGE IVP PRN (14:15)
[2018-04-18] MEDS ORDERED: ACETAMINOPHEN 500 MG TABLET PO ONE (14:30)
[2018-04-18 15:29] VITALS: BP 114/84
[2018-04-18 20:13] VITALS: BP 110/70
[2018-04-18] MEDS: PRIMIDONE 50 MG TABLET PO SCH (20:47)
[2018-04-18] MEDS: METOPROLOL SUCCINATE 25 MG ER TABLET PO SCH (20:48)
[2018-04-18] MEDS: PANTOPRAZOLE SODIUM 40 MG DR TABLET PO SCH (20:48)
[2018-04-18] MEDS: ATORVASTATIN CALCIUM 20 MG TABLET PO SCH (20:48)
[2018-04-18] MEDS ORDERED: ALBUTEROL SULFATE 2.5 MG/0.5 ML NEB SOLUTION NEB PRN (21:00)
[2018-04-18] MEDS ORDERED: BISACODYL 10 MG RECTAL RECTAL SUPPOSITORY PR PRN (21:00)
[2018-04-19] MEDS: DOCUSATE SODIUM 100 MG CAPSULE PO SCH ×3 (00:09→20:55)
[2018-04-19] MEDS: HEPARIN SODIUM,PORCINE 5,000 UNITS/ML VIAL SQ SCH ×3 (00:10→20:56)
[2018-04-19 00:24] VITALS: BP 101/69
[2018-04-19 04:02] VITALS: BP 105/67
[2018-04-19] MEDS: LEVOTHYROXINE SODIUM 125 MCG TABLET PO SCH (06:50)
[2018-04-19 07:10] LABS: BASOPHILS % (AUTO) 0.8 % (0.0-2.0); EOSINOPHILS % (AUTO) 1.1 % (1.0-6.0); HEMATOCRIT 35.3 % (36-46); HEMOGLOBIN 11.3 g/dL (12.0-16.0); LYMPHOCYTES # (AUTO) 0.9 K/uL (1.0-4.8); LYMPHOCYTES % (AUTO) 14.6 % (22.0-44.0); MEAN CORPUSCULAR HEMOGLOBIN 29.8 pg (26.0-34.0); MEAN CORPUSCULAR HGB CONC 31.9 G/dL (31.0-37.0); MEAN CORPUSCULAR VOLUME 94 fL (80-100); MONOCYTES # (AUTO) 1.1 K/uL (0.1-1.0); MONOCYTES % (AUTO) 17.6 % (2.0-9.0); NEUTROPHILS % (AUTO) 65.9 % (40.0-70.0); PLATELET COUNT (AUTO) 135 K/uL (150-450); RED BLOOD CELL COUNT(AUTO) 3.77 MIL/uL (4.00-5.20); RED CELL DISTRIBUTION WIDTH 20.4 % (11.5-14.5)
[2018-04-19 07:27] LABS: ALBUMIN 3.2 g/dL (3.4-5.0); BILIRUBIN,TOTAL 0.8 mg/dL (0.1-1.0); CREATININE 8.05 mg/dL (0.60-1.30); MAGNESIUM 2.1 mg/dL (1.80-2.40); POTASSIUM 4.4 mmol/L (3.5-5.1); TOTAL PROTEIN, SERUM 6.4 g/dL (6.4-8.2)
[2018-04-19 07:41] VITALS: BP 106/72
[2018-04-19 07:55] LABS: DIGOXIN 2.88 ng/mL (0.90-2.00)
[2018-04-19] MEDS ORDERED: AMIODARONE HCL 200 MG TABLET PO SCH (09:00)
[2018-04-19] MEDS: PANTOPRAZOLE SODIUM 40 MG DR TABLET PO SCH ×3 (09:00→20:55)
[2018-04-19] MEDS: VITAMIN B COMP/VIT C/FOLIC ACID CAPSULE PO SCH (09:05)
[2018-04-19] MEDS: CLOPIDOGREL BISULFATE 75 MG TABLET PO SCH (09:06)
[2018-04-19] MEDS: ASPIRIN 81 MG CHEWABLE TABLET PO SCH (09:08)
[2018-04-19] MEDS: METOPROLOL SUCCINATE 25 MG ER TABLET PO SCH ×2 (09:16→20:55)
[2018-04-19] MEDS: OxyCODONE HCL/ACETAMINOPHEN 5-325 MG TABLET PO PRN ×2 (11:12→17:24)
[2018-04-19 11:45] VITALS: BP 110/80
[2018-04-19] MEDS ORDERED: LIDOCAINE HCL/PF 1% 2 ML VIAL INJ ONE (12:00)
[2018-04-19] MEDS ORDERED: ONDANSETRON HCL 4 MG/2 ML VIAL IVP PRN (13:15)
[2018-04-19 15:48] VITALS: BP 122/68
[2018-04-19 19:53] VITALS: BP 104/63
[2018-04-19] MEDS: PRIMIDONE 50 MG TABLET PO SCH (20:55)
[2018-04-19] MEDS: ATORVASTATIN CALCIUM 20 MG TABLET PO SCH (20:55)
[2018-04-19] MEDS: HYDROCODONE/ACETAMINOPHEN 5-325 MG TABLET PO PRN (21:33)
[2018-04-20 00:36] VITALS: BP 99/64
[2018-04-20 05:38] VITALS: BP 107/68
[2018-04-20] MEDS: OxyCODONE HCL/ACETAMINOPHEN 5-325 MG TABLET PO PRN ×3 (05:43→17:53)
[2018-04-20] MEDS: LEVOTHYROXINE SODIUM 125 MCG TABLET PO SCH (05:43)
[2018-04-20 07:13] VITALS: BP 128/72
[2018-04-20 08:10] LABS: BASOPHILS % (AUTO) 1.5 % (0.0-2.0); EOSINOPHILS % (AUTO) 2.2 % (1.0-6.0); HEMATOCRIT 32.7 % (36-46); HEMOGLOBIN 10.6 g/dL (12.0-16.0); LYMPHOCYTES # (AUTO) 0.6 K/uL (1.0-4.8); LYMPHOCYTES % (AUTO) 11.2 % (22.0-44.0); MEAN CORPUSCULAR HEMOGLOBIN 30.1 pg (26.0-34.0); MEAN CORPUSCULAR HGB CONC 32.5 G/dL (31.0-37.0); MEAN CORPUSCULAR VOLUME 93 fL (80-100); MONOCYTES # (AUTO) 1.1 K/uL (0.1-1.0); MONOCYTES % (AUTO) 20.3 % (2.0-9.0); NEUTROPHILS # (AUTO) 3.4 K/uL (1.8-7.7); NEUTROPHILS % (AUTO) 64.8 % (40.0-70.0); PLATELET COUNT (AUTO) 122 K/uL (150-450); RED BLOOD CELL COUNT(AUTO) 3.52 MIL/uL (4.00-5.20); RED CELL DISTRIBUTION WIDTH 20.7 % (11.5-14.5)
[2018-04-20 08:54] LABS: BILIRUBIN,TOTAL 0.8 mg/dL (0.1-1.0); CALCIUM, TOTAL 7.1 mg/dL (8.8-10.5); CREATININE 5.35 mg/dL (0.60-1.30); MAGNESIUM 1.8 mg/dL (1.80-2.40); POTASSIUM 4.2 mmol/L (3.5-5.1); THYROID STIMULATING HORMONE 4.52 uIU/mL (0.36-3.74); TOTAL PROTEIN, SERUM 6.1 g/dL (6.4-8.2)
[2018-04-20] MEDS: PANTOPRAZOLE SODIUM 40 MG DR TABLET PO SCH ×3 (09:00→20:09)
[2018-04-20 09:01] LABS: DIGOXIN 2.66 ng/mL (0.90-2.00)
[2018-04-20] MEDS ORDERED: SODIUM CHLORIDE 0.9% 2,000 ML IV ONE (09:34)
[2018-04-20 11:45] VITALS: BP 118/68
[2018-04-20] MEDS: DOCUSATE SODIUM 100 MG CAPSULE PO SCH ×2 (11:46→20:09)
[2018-04-20] MEDS: VITAMIN B COMP/VIT C/FOLIC ACID CAPSULE PO SCH (11:46)
[2018-04-20] MEDS: CLOPIDOGREL BISULFATE 75 MG TABLET PO SCH (11:47)
[2018-04-20] MEDS: ASPIRIN 81 MG CHEWABLE TABLET PO SCH (11:47)
[2018-04-20] MEDS: HEPARIN SODIUM,PORCINE 5,000 UNITS/ML VIAL SQ SCH ×2 (11:48→20:09)
[2018-04-20] MEDS: METOPROLOL SUCCINATE 25 MG ER TABLET PO SCH ×2 (11:48→20:09)
[2018-04-20 15:19] VITALS: BP 122/70
[2018-04-20] MEDS ORDERED: LIDOCAINE HCL/PF 1% 2 ML VIAL IM ONE (16:51)
[2018-04-20 19:38] VITALS: BP 103/56
[2018-04-20] MEDS: ATORVASTATIN CALCIUM 20 MG TABLET PO SCH (20:09)
[2018-04-20] MEDS: PRIMIDONE 50 MG TABLET PO SCH (20:09)
[2018-04-20] MEDS: HYDROCODONE/ACETAMINOPHEN 5-325 MG TABLET PO PRN (20:10)
[2018-04-20] MEDS: CEPHALEXIN MONOHYDRATE 250 MG CAPSULE PO SCH (21:53)
[2018-04-21] VITALS (7 sets, daily range): BP systolic 104–131; BP diastolic 58–70
[2018-04-21] MEDS: HYDROCODONE/ACETAMINOPHEN 5-325 MG TABLET PO PRN ×2 (02:03→13:47)
[2018-04-21] MEDS: OxyCODONE HCL/ACETAMINOPHEN 5-325 MG TABLET PO PRN ×3 (05:50→22:01)
[2018-04-21] MEDS: LEVOTHYROXINE SODIUM 125 MCG TABLET PO SCH (05:50)
[2018-04-21] MEDS ORDERED: CYCLOBENZAPRINE HCL 10 MG TABLET PO PRN (07:30)
[2018-04-21] MEDS: DOCUSATE SODIUM 100 MG CAPSULE PO SCH ×2 (08:37→22:00)
[2018-04-21] MEDS: VITAMIN B COMP/VIT C/FOLIC ACID CAPSULE PO SCH (08:37)
[2018-04-21] MEDS: ASPIRIN 81 MG CHEWABLE TABLET PO SCH (08:37)
[2018-04-21] MEDS: METOPROLOL SUCCINATE 25 MG ER TABLET PO SCH ×2 (08:37→22:00)
[2018-04-21] MEDS: HEPARIN SODIUM,PORCINE 5,000 UNITS/ML VIAL SQ SCH ×2 (08:38→22:00)
[2018-04-21] MEDS: PANTOPRAZOLE SODIUM 40 MG DR TABLET PO SCH ×3 (08:38→22:00)
[2018-04-21] MEDS: CLOPIDOGREL BISULFATE 75 MG TABLET PO SCH (08:38)
[2018-04-21] MEDS: CEPHALEXIN MONOHYDRATE 250 MG CAPSULE PO SCH ×2 (08:38→12:32)
[2018-04-21 09:00] LABS: BASOPHILS % (AUTO) 1.7 % (0.0-2.0); EOSINOPHILS % (AUTO) 2.8 % (1.0-6.0); HEMATOCRIT 35.2 % (36-46); HEMOGLOBIN 11.1 g/dL (12.0-16.0); LYMPHOCYTES # (AUTO) 0.7 K/uL (1.0-4.8); LYMPHOCYTES % (AUTO) 14.9 % (22.0-44.0); MEAN CORPUSCULAR HEMOGLOBIN 29.8 pg (26.0-34.0); MEAN CORPUSCULAR HGB CONC 31.6 G/dL (31.0-37.0); MEAN CORPUSCULAR VOLUME 94 fL (80-100); MONOCYTES # (AUTO) 0.9 K/uL (0.1-1.0); MONOCYTES % (AUTO) 20.1 % (2.0-9.0); NEUTROPHILS # (AUTO) 2.7 K/uL (1.8-7.7); NEUTROPHILS % (AUTO) 60.5 % (40.0-70.0); PLATELET COUNT (AUTO) 123 K/uL (150-450); RED BLOOD CELL COUNT(AUTO) 3.73 MIL/uL (4.00-5.20); RED CELL DISTRIBUTION WIDTH 20.9 % (11.5-14.5)
[2018-04-21 10:07] LABS: ALBUMIN 3.2 g/dL (3.4-5.0); BILIRUBIN,TOTAL 0.7 mg/dL (0.1-1.0); CALCIUM, TOTAL 7.6 mg/dL (8.8-10.5); CREATININE 4.52 mg/dL (0.60-1.30); MAGNESIUM 1.6 mg/dL (1.80-2.40); POTASSIUM 4.3 mmol/L (3.5-5.1); TOTAL PROTEIN, SERUM 6.2 g/dL (6.4-8.2)
[2018-04-21 10:09] LABS: DIGOXIN 2.45 ng/mL (0.90-2.00)
[2018-04-21] MEDS: PRIMIDONE 50 MG TABLET PO SCH (22:00)
[2018-04-21] MEDS: ATORVASTATIN CALCIUM 20 MG TABLET PO SCH (22:00)
[2018-04-22 05:01] VITALS: BP 138/67
[2018-04-22] MEDS ORDERED: LEVOTHYROXINE SODIUM 125 MCG TABLET PO SCH (06:30)
[2018-04-22] MEDS: LEVOTHYROXINE SODIUM 150 MCG TABLET PO SCH (06:35)
[2018-04-22 07:33] VITALS: BP 95/69
[2018-04-22 08:15] LABS: BASOPHILS % (AUTO) 0.9 % (0.0-2.0); EOSINOPHILS % (AUTO) 3.3 % (1.0-6.0); HEMATOCRIT 32.6 % (36-46); HEMOGLOBIN 10.7 g/dL (12.0-16.0); LYMPHOCYTES # (AUTO) 0.7 K/uL (1.0-4.8); LYMPHOCYTES % (AUTO) 16.7 % (22.0-44.0); MEAN CORPUSCULAR HEMOGLOBIN 30.5 pg (26.0-34.0); MEAN CORPUSCULAR HGB CONC 32.7 G/dL (31.0-37.0); MEAN CORPUSCULAR VOLUME 93 fL (80-100); MONOCYTES # (AUTO) 0.8 K/uL (0.1-1.0); MONOCYTES % (AUTO) 18.7 % (2.0-9.0); NEUTROPHILS # (AUTO) 2.5 K/uL (1.8-7.7); NEUTROPHILS % (AUTO) 60.4 % (40.0-70.0); PLATELET COUNT (AUTO) 115 K/uL (150-450); RED BLOOD CELL COUNT(AUTO) 3.49 MIL/uL (4.00-5.20); RED CELL DISTRIBUTION WIDTH 21.2 % (11.5-14.5)
[2018-04-22] MEDS: CLOPIDOGREL BISULFATE 75 MG TABLET PO SCH (08:23)
[2018-04-22] MEDS: PANTOPRAZOLE SODIUM 40 MG DR TABLET PO SCH ×3 (08:23→20:41)
[2018-04-22] MEDS: DOCUSATE SODIUM 100 MG CAPSULE PO SCH ×2 (08:24→20:42)
[2018-04-22] MEDS: VITAMIN B COMP/VIT C/FOLIC ACID CAPSULE PO SCH (08:24)
[2018-04-22] MEDS: ASPIRIN 81 MG CHEWABLE TABLET PO SCH (08:24)
[2018-04-22] MEDS: HEPARIN SODIUM,PORCINE 5,000 UNITS/ML VIAL SQ SCH ×2 (08:26→20:43)
[2018-04-22] MEDS: METOPROLOL SUCCINATE 25 MG ER TABLET PO SCH ×2 (08:33→20:49)
[2018-04-22 08:50] LABS: ALBUMIN 2.8 g/dL (3.4-5.0); BILIRUBIN,TOTAL 0.6 mg/dL (0.1-1.0); CALCIUM, TOTAL 7.2 mg/dL (8.8-10.5); CREATININE 5.93 mg/dL (0.60-1.30); MAGNESIUM 1.7 mg/dL (1.80-2.40); POTASSIUM 4.4 mmol/L (3.5-5.1); TOTAL PROTEIN, SERUM 6.1 g/dL (6.4-8.2)
[2018-04-22 08:56] LABS: DIGOXIN 2.5 ng/mL (0.90-2.00)
[2018-04-22] MEDS ORDERED: CEPHALEXIN MONOHYDRATE 250 MG CAPSULE PO SCH (09:00)
[2018-04-22 11:04] VITALS: BP 92/57
[2018-04-22] MEDS ORDERED: LIDOCAINE HCL/PF 1% 2 ML VIAL ID PRN (13:30)
[2018-04-22] MEDS ORDERED: MANNITOL 25%-12.5 GM/50 ML VIAL IVP PRN (13:30)
[2018-04-22] MEDS ORDERED: SODIUM CHLORIDE 0.9% 2,000 ML IV ONE (14:13)
[2018-04-22] MEDS: OxyCODONE HCL/ACETAMINOPHEN 5-325 MG TABLET PO PRN ×2 (16:43→20:43)
[2018-04-22 20:34] VITALS: BP 113/60
[2018-04-22] MEDS: ATORVASTATIN CALCIUM 20 MG TABLET PO SCH (20:41)
[2018-04-22] MEDS: DICLOFENAC SODIUM 1% 100 GM GEL [4GM] TP SCH (20:41)
[2018-04-22] MEDS: PRIMIDONE 50 MG TABLET PO SCH (20:41)
[2018-04-22 23:39] VITALS: BP 139/69
[2018-04-23 04:44] VITALS: BP 101/76
[2018-04-23] MEDS: LEVOTHYROXINE SODIUM 150 MCG TABLET PO SCH (06:14)
[2018-04-23] MEDS: OxyCODONE HCL/ACETAMINOPHEN 5-325 MG TABLET PO PRN ×2 (06:28→18:00)
[2018-04-23 07:35] VITALS: BP 109/65
[2018-04-23] MEDS: DOCUSATE SODIUM 100 MG CAPSULE PO SCH (08:55)
[2018-04-23] MEDS: ASPIRIN 81 MG CHEWABLE TABLET PO SCH (08:55)
[2018-04-23] MEDS: PANTOPRAZOLE SODIUM 40 MG DR TABLET PO SCH ×2 (08:55)
[2018-04-23] MEDS: VITAMIN B COMP/VIT C/FOLIC ACID CAPSULE PO SCH (08:55)
[2018-04-23] MEDS: CLOPIDOGREL BISULFATE 75 MG TABLET PO SCH (08:55)
[2018-04-23] MEDS: METOPROLOL SUCCINATE 25 MG ER TABLET PO SCH (08:56)
[2018-04-23] MEDS: HEPARIN SODIUM,PORCINE 5,000 UNITS/ML VIAL SQ SCH (08:56)
[2018-04-23] MEDS: DICLOFENAC SODIUM 1% 100 GM GEL [4GM] TP SCH (08:57)
[2018-04-23] MEDS ORDERED: CEPHALEXIN MONOHYDRATE 500 MG CAPSULE PO SCH (09:00)
[2018-04-23 11:47] VITALS: BP 123/69
[2018-04-23 16:23] VITALS: BP 114/71
[2018-04-23] MEDS ORDERED: LIDOCAINE HCL/PF 1% 2 ML VIAL IM ONE (18:23)
== END 2018-04-23 18:20 | DRG 291 ==
LOC: EMS 11:23 → 5S 13:34
PROVIDERS: ADMIT Internal Medicine; ATTEND Internal Medicine
PROC: 5A1D70Z Performance of Urinary Filtration, Intermittent, Less than 6 Hours Per Day (ICD-10-PCS; principal; 2018-04-19)
PROC: 5A1D70Z Performance of Urinary Filtration, Intermittent, Less than 6 Hours Per Day (ICD-10-PCS; 2018-04-20)
PROC: 5A1D70Z Performance of Urinary Filtration, Intermittent, Less than 6 Hours Per Day (ICD-10-PCS; 2018-04-22)
DX: I13.2 Hypertensive heart and chronic kidney disease with heart failure and with stage 5 chronic kidney disease, or end stage renal disease (principal); N18.6 End stage renal disease; E11.22 Type 2 diabetes mellitus with diabetic chronic kidney disease; I27.20 Pulmonary hypertension, unspecified; I49.5 Sick sinus syndrome; E87.1 Hypo-osmolality and hyponatremia; I08.1 Rheumatic disorders of both mitral and tricuspid valves; I50.33 Acute on chronic diastolic (congestive) heart failure; T46.0X5A Adverse effect of cardiac-stimulant glycosides and drugs of similar action, initial encounter; I42.9 Cardiomyopathy, unspecified; E78.5 Hyperlipidemia, unspecified; D64.9 Anemia, unspecified; I25.10 Atherosclerotic heart disease of native coronary artery without angina pectoris; I48.0 Paroxysmal atrial fibrillation; F41.9 Anxiety disorder, unspecified; E03.9 Hypothyroidism, unspecified; Z96.649 Presence of unspecified artificial hip joint; Z99.2 Dependence on renal dialysis; Z90.49 Acquired absence of other specified parts of digestive tract; Z90.5 Acquired absence of kidney; Z95.810 Presence of automatic (implantable) cardiac defibrillator; Z90.12 Acquired absence of left breast and nipple; Z91.041 Radiographic dye allergy status; Z79.02 Long term (current) use of antithrombotics/antiplatelets; Z79.899 Other long term (current) drug therapy; Z85.3 Personal history of malignant neoplasm of breast; Z86.73 Personal history of transient ischemic attack (TIA), and cerebral infarction without residual deficits; Z83.3 Family history of diabetes mellitus; Y92.89 Other specified places as the place of occurrence of the external cause
CPT/HCPCS: 83735; 84443; 87081; 87340; 93005; 97161; 97530; 99291; J1644; J2405; J3490; J7030

== ENCOUNTER 2018-06-06 10:14 | Emergency (ER) | payer MEDICARE, OTHER ==
[~2018-06-06] VITALS: Ht 165.1 cm; Wt 69.7 kg
[~2018-06-06 10:14] MED LIST changes: -FOLI0.8T22 PO; +FOLI1CAP2 PO; +METO25XL PO; -PROP80SR PO; -SENN-175 PO
[2018-06-06] MEDS ORDERED: HEPA500041 SQ (10:44)
[2018-06-06] MEDS ORDERED: DSS100 PO (10:44)
[2018-06-06] MEDS ORDERED: [UNRECOGNIZED DRUG - CODE] SQ (10:44)
[2018-06-06] MEDS ORDERED: OxyCODONE HCL/ACETAMINOPHEN 5-325 MG TABLET PO ONE (11:45)
[2018-06-06 11:49] LABS: CALCIUM, TOTAL 9.3 mg/dL (8.8-10.5); CREATININE 6.95 mg/dL (0.60-1.30); POTASSIUM 4.4 mmol/L (3.5-5.1)
[2018-06-06 11:52] LABS: ALBUMIN 2.9 g/dL (3.4-5.0); BILIRUBIN,TOTAL 0.5 mg/dL (0.1-1.0); TOTAL PROTEIN, SERUM 6.7 g/dL (6.4-8.2)
[2018-06-06 11:57] LABS: BASOPHILS % (AUTO) 1.2 % (0.0-2.0); EOSINOPHILS % (AUTO) 1.9 % (1.0-6.0); HEMATOCRIT 29.3 % (36-46); HEMOGLOBIN 9.2 g/dL (12.0-16.0); LYMPHOCYTES # (AUTO) 0.5 K/uL (1.0-4.8); LYMPHOCYTES % (AUTO) 13.1 % (22.0-44.0); MEAN CORPUSCULAR HEMOGLOBIN 28.8 pg (26.0-34.0); MEAN CORPUSCULAR HGB CONC 31.5 G/dL (31.0-37.0); MEAN CORPUSCULAR VOLUME 91 fL (80-100); MONOCYTES # (AUTO) 0.5 K/uL (0.1-1.0); MONOCYTES % (AUTO) 13.5 % (2.0-9.0); NEUTROPHILS # (AUTO) 2.5 K/uL (1.8-7.7); NEUTROPHILS % (AUTO) 70.3 % (40.0-70.0); PLATELET COUNT (AUTO) 199 K/uL (150-450)
[2018-06-06 13:43] LABS: GLUCOSE,POINT OF CARE 72 MG/DL (70-110)
[2018-06-06 14:05] VITALS: BP 122/76
[2018-06-08] MEDS ORDERED: AMIO200T44 PO (15:52)
[2018-06-09] MEDS ORDERED: LEVO125 PO (19:37)
[2018-06-10] MEDS ORDERED: AMIO200T44 PO (11:37)
[2018-06-10] MEDS ORDERED: ACET-784 PO (11:39)
[2018-06-10] MEDS ORDERED: AUD NEB (11:41)
[2018-06-10] MEDS ORDERED: BISA10S PR (11:41)
[2018-06-10] MEDS ORDERED: LACT30L PO (11:42)
[2018-06-10] MEDS ORDERED: HEPA500018 SQ (11:45)
== END 2018-06-06 14:54 | disposition home or self-care (01) ==
LOC: EMS 10:16
DX: I13.2 Hypertensive heart and chronic kidney disease with heart failure and with stage 5 chronic kidney disease, or end stage renal disease (principal); N18.6 End stage renal disease; I50.9 Heart failure, unspecified; I48.91 Unspecified atrial fibrillation; D63.1 Anemia in chronic kidney disease; E03.9 Hypothyroidism, unspecified; G89.29 Other chronic pain; Z99.2 Dependence on renal dialysis; Z91.041 Radiographic dye allergy status; Z91.018 Allergy to other foods
CPT/HCPCS: 93005; 99285